=== PATIENT | female | born 1965 ===

== ENCOUNTER → 2021-04-14 12:47 | Outpatient (BNVA) | payer OTHER, SELFPAY | PROVIDERS: PCP Internal Medicine; Visit Provider Anesthesiology | DX: G89.4 Chronic pain syndrome (principal); I67.9 Cerebrovascular disease, unspecified; I69.30 Unspecified sequelae of cerebral infarction | CPT/HCPCS: 99202 ==

== ENCOUNTER 2021-09-11 10:43 | Outpatient (REF) | payer OTHER, SELFPAY ==
--- NOTE | ~2021-09-11 | XR_ITS ---
EXAMINATION: X-RAY LEFT HIP X-RAY SACROILIAC JOINTS CLINICAL INFORMATION: Sacroiliitis. COMPARISON: None TECHNIQUE: 1 view of the pelvis and 2 views of the left hip. 2 views of each sacroiliac joint. FINDINGS: No acute fractures or malalignment. Mild degenerative osteoarthritis of both hips with joint space narrowing, subcortical sclerosis and small marginal osteophytes. Fairly symmetric appearance of the sacroiliac joints with mild to moderate sclerosis and no evidence of joint widening. No definite erosions. XR/XR sacroiliac joint min 3V IMPRESSION: No acute fractures or malalignment. Mild degenerative osteoarthritis of the hips. Mild symmetric sclerosis of the sacroiliac joints with no joint widening.
--- NOTE | ~2021-09-11 | XR_ITS ---
EXAMINATION: X-RAY LEFT HIP X-RAY SACROILIAC JOINTS CLINICAL INFORMATION: Sacroiliitis. COMPARISON: None TECHNIQUE: 1 view of the pelvis and 2 views of the left hip. 2 views of each sacroiliac joint. FINDINGS: No acute fractures or malalignment. Mild degenerative osteoarthritis of both hips with joint space narrowing, subcortical sclerosis and small marginal osteophytes. Fairly symmetric appearance of the sacroiliac joints with mild to moderate sclerosis and no evidence of joint widening. No definite erosions. XR/XR hip LT w PEL1V IMPRESSION: No acute fractures or malalignment. Mild degenerative osteoarthritis of the hips. Mild symmetric sclerosis of the sacroiliac joints with no joint widening.
== END 2021-09-11 10:44 | disposition home or self-care (01) ==
LOC: HO.XRAY 10:43
PROVIDERS: PCP Internal Medicine; Visit Provider Nurse Practitioner Family
DX: M53.3 Sacrococcygeal disorders, not elsewhere classified (principal); M46.1 Sacroiliitis, not elsewhere classified; I69.30 Unspecified sequelae of cerebral infarction; M54.2 Cervicalgia; I69.398 Other sequelae of cerebral infarction; R25.2 Cramp and spasm; M47.812 Spondylosis without myelopathy or radiculopathy, cervical region; M51.36 Other intervertebral disc degeneration, lumbar region; G89.4 Chronic pain syndrome
CPT/HCPCS: 72202; 73502; 99212

== ENCOUNTER 2021-11-04 06:10 | Outpatient (REF) | payer OTHER, SELFPAY ==
--- NOTE | ~2021-11-04 | FL_ITS ---
EXAMINATION: XR FLUOROSCOPY WITH IMAGES CLINICAL INFORMATION: Sacrococcygeal disorders COMPARISON: None. TECHNIQUE: Fluoroscopy performed by Dr. Matty Herron. Fluoroscopy time: 0.0 minutes. Cumulative Dose: 0.957 mGy. DAP: 0.260 Gy-cm2. Images: 1. FINDINGS: There is a radiopaque needle projecting over the left sacroiliac joint with extension of contrast along the joint. FL/FL guidance in treatment room IMPRESSION: Fluoroscopic guidance for left sacroiliac joint intervention. Please refer to procedural report for further information.
== END 2021-11-04 06:11 | disposition home or self-care (01) ==
LOC: HO.RADIR 06:10
PROVIDERS: Visit Provider Anesthesiology
DX: M53.3 Sacrococcygeal disorders, not elsewhere classified (principal); M46.1 Sacroiliitis, not elsewhere classified; M54.2 Cervicalgia; M47.812 Spondylosis without myelopathy or radiculopathy, cervical region; R25.2 Cramp and spasm; I69.30 Unspecified sequelae of cerebral infarction; I69.398 Other sequelae of cerebral infarction
CPT/HCPCS: 27096; J2795

== ENCOUNTER → 2022-01-05 10:15 | Outpatient (BNVA) | payer MEDICARE, MEDICAID, SELFPAY | PROVIDERS: PCP Internal Medicine; Visit Provider Nurse Practitioner Family | DX: M51.36 Other intervertebral disc degeneration, lumbar region (principal); M47.812 Spondylosis without myelopathy or radiculopathy, cervical region; M53.3 Sacrococcygeal disorders, not elsewhere classified; M46.1 Sacroiliitis, not elsewhere classified; I69.398 Other sequelae of cerebral infarction; R25.2 Cramp and spasm; G89.4 Chronic pain syndrome; M54.16 Radiculopathy, lumbar region | CPT/HCPCS: 99212 ==

== ENCOUNTER 2022-01-13 06:05 | Outpatient (REF) | payer OTHER, SELFPAY | END 2022-01-13 06:06 | disposition home or self-care (01) | LOC: CF 06:05 | PROVIDERS: Visit Provider Anesthesiology | DX: Z13.89 Encounter for screening for other disorder (principal) | CPT/HCPCS: J3300 ==

== ENCOUNTER 2022-01-27 06:14 | Outpatient (REF) | payer MEDICARE, MEDICAID, SELFPAY ==
--- NOTE | ~2022-01-27 | FL_ITS ---
EXAMINATION: XR FLUOROSCOPY WITH IMAGES CLINICAL INFORMATION: M53.3 - Sacrococcygeal disorders, not elsewhere classified COMPARISON: Radiographs SI joint 09/11/2021 TECHNIQUE: Fluoroscopy performed by Dr. Matty Herron. Fluoroscopy time: 0.1 minutes. Cumulative Dose: 0.660 mGy. DAP: 2.42 Gy-cm2. Images: 4. FINDINGS: Spinal needle overlies mid to lower left SI joint. There is contrast in the periarticular soft tissues with probable early intra-articular contrast. No definite vasculature communication appreciated. FL/FL guidance in treatment room IMPRESSION: Fluoroscopy for pain management procedure.
== END 2022-01-27 06:15 | disposition home or self-care (01) ==
LOC: CF 06:14
PROVIDERS: Visit Provider Anesthesiology
DX: M53.3 Sacrococcygeal disorders, not elsewhere classified (principal); M51.36 Other intervertebral disc degeneration, lumbar region; M46.1 Sacroiliitis, not elsewhere classified; M54.16 Radiculopathy, lumbar region
CPT/HCPCS: 27096

== ENCOUNTER 2022-02-11 15:00 | Outpatient (RCR) | payer MEDICARE, MEDICAID, SELFPAY ==
--- NOTE | 2022-02-04 14:12 | MHC.PT.EP ---
[facility] [place] Office [place] Office [place] Office [address] Deborah Chacko [address] [phone] F: [phone] F: [phone] F: [phone] F: [phone] Physical Therapy Plan of Care Date of Evaluation: Date of Surgery: n/a Diagnosis: lumbar intervertebral disc degenerative Assessment: Patient is a 57 year old female presenting to PT with complaints of pain in her low back. 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 She presents today with impairments in pain, lumbar ROM, posture, core strength, hip strength. Pt's current occupation is none at this time since the stroke, with baseline physical activities including ADLs, bending, sitting, lifting. Pt expresses detention goal of reducing pain, and is motivated to work towards this in PT. Clinical presentation today is most consistent with signs and sx associated with low back pain and pt will benefit from skilled PT to address the following problems and impairments noted upon evaluation: pain, lumbar ROM, posture, core strength, hip strength. These problems limit the patient with the following functional activities: sitting, lifting. The prescribed treatment plan of care is medically necessary. Co-morbidities of post stroke, HTN were identified and taken into considerations of plan of care. Pt was educated on HEP, role of PT, prognosis, POC. Frequency and Duration: The patient will be seen 2 x week x 4 weeks Short Term Goals: Pt will demonstrate ability to perform PPT with good TA recruitment in 2 weeks. Pt will demonstrate improved hip MMT by 1/3 grade in 2 weeks for improved lumbopelvic stability. Pt will demonstrate improved postural awareness by sitting with biomechanically correct posture without cues throughout session to improve overall postural function in 2 weeks. Carpenter Helper Maintenance Goals: Pt will demonstrate improved Hallie score by 10% for improved functional mobility in 4 weeks. Pt will demonstrate ability to sit with min to no pain in 4 weeks for return to PLOF. Pt will demonstrate ability to lay flat with min to no pain in 4 weeks for improved tolerance to sleep. Treatment Plan: Modalities to reduce pain, spasms and effusion. Manual therapy to restore motion and function. Therapeutic exercise to improve strength and flexibility. Neuromuscular re-education for posture and balance. Therapeutic activities to return to functional activities of daily living. Electronically signed by: Nora Earl, PT, DPT, ATC Please sign and return to therapist. Thank you for your referral.
--- NOTE | 2022-03-03 13:57 | MHC.PT.DC ---
[facility] [place] Office [place] Office [place] Office [address] [phone] F: [phone] F: [phone] F: [phone] F: [phone] Physical Therapy Discharge Report Diagnosis: lumbar intervertebral disc degenerative Date of Surgery: n/a Date of Evaluation: 02/04/22 Date of Discharge: 03/03/22 Treatments to Date: 3 Cancellations to Date: 3 No Shows to Date: 2 Discharge Status: Visit Non-compliance Discharge Summary: Pt has failed to comply with [facility] attendance policy and no showed 2 appointments. Pt to be d/c at this time. Electronically signed by: Nora Earl PT, DPT, ATC Please sign and return to therapist. Thank you for your referral.
== END 2022-03-03 13:57 | disposition home or self-care (01) ==
LOC: HO.PTCHIC 15:00
PROVIDERS: Visit Provider Nurse Practitioner Family
DX: M51.36 Other intervertebral disc degeneration, lumbar region (principal); M47.812 Spondylosis without myelopathy or radiculopathy, cervical region; M53.3 Sacrococcygeal disorders, not elsewhere classified; M46.1 Sacroiliitis, not elsewhere classified
CPT/HCPCS: 97110; 97140; 97162

== ENCOUNTER → 2022-02-16 12:58 | Outpatient (BNVA) | payer MEDICARE, MEDICAID, SELFPAY | PROVIDERS: Visit Provider Anesthesiology | DX: M51.36 Other intervertebral disc degeneration, lumbar region (principal); I69.398 Other sequelae of cerebral infarction; R25.2 Cramp and spasm; M53.3 Sacrococcygeal disorders, not elsewhere classified; M46.1 Sacroiliitis, not elsewhere classified; M54.16 Radiculopathy, lumbar region; G89.4 Chronic pain syndrome | CPT/HCPCS: 99212 ==

== ENCOUNTER → 2022-09-14 14:12 | Outpatient (BNVA) | payer MEDICARE, MEDICAID, SELFPAY | PROVIDERS: PCP Internal Medicine; Visit Provider Anesthesiology | DX: M51.36 Other intervertebral disc degeneration, lumbar region (principal); M53.3 Sacrococcygeal disorders, not elsewhere classified; M46.1 Sacroiliitis, not elsewhere classified; M54.16 Radiculopathy, lumbar region; I69.398 Other sequelae of cerebral infarction; R25.2 Cramp and spasm; I67.9 Cerebrovascular disease, unspecified; G89.4 Chronic pain syndrome | CPT/HCPCS: 99212 ==

== ENCOUNTER 2022-10-06 07:10 | Outpatient (REF) | payer MEDICARE, MEDICAID, SELFPAY ==
--- NOTE | ~2022-10-06 | FL_ITS ---
EXAMINATION: XR FLUOROSCOPY WITH IMAGES CLINICAL INFORMATION: Sacroiliitis, not elsewhere classified. COMPARISON: None available. TECHNIQUE: Fluoroscopy Supervised By: Dr. Herron. Fluoroscopy Time: 0.2 minutes. Cumulative Dose: 4.81 mGy. DAP: 1.31 Gycm2. Images: 2. FINDINGS: Images demonstrate needle placement and contrast injection over the bilateral sacroiliac joints FL/FL guidance in treatment room IMPRESSION: Fluoroscopy guidance for sacroiliac joint injections
== END 2022-10-06 07:11 | disposition home or self-care (01) ==
LOC: CF 07:10
PROVIDERS: PCP Internal Medicine; Visit Provider Anesthesiology
DX: M46.1 Sacroiliitis, not elsewhere classified (principal); M51.36 Other intervertebral disc degeneration, lumbar region; M53.3 Sacrococcygeal disorders, not elsewhere classified; M54.16 Radiculopathy, lumbar region; I69.398 Other sequelae of cerebral infarction; R25.2 Cramp and spasm; G89.4 Chronic pain syndrome
CPT/HCPCS: 27096; J3301

== ENCOUNTER 2022-11-23 14:07 | Outpatient (AMB) | payer MEDICARE, MEDICAID, SELFPAY ==
[2022-11-23 14:47] VITALS: BP 110/60; PULSE 62; RESP 18; O2SAT 96; BMI 24.4
--- NOTE | 2022-11-23 14:47 | A.OFFVIS_ITS ---
Intake Vital Signs 11/23/22 14:47 Height 5 ft 6 in Weight 151 lb 3 oz BMI 24.4 BP 110/60 Blood Pressure Location Rt brachial Position Sitting Respiration 18 Pulse 62 Pulse Source Pulse Oximeter Pulse Oximetry (%) 96 Oxygen Delivery Method Room Air Intake Visit Reasons: BILAT THERAPEUTIC SIJ INJ 10/06/22 Allergies ciprofloxacin [From Cipro] Allergy (Verified 11/23/22 14:48) unknown shellfish derived Allergy (Verified 11/23/22 14:48) unknown HPI HPI Comments History of Present Illness Details Patient presents today for follow up regarding worsening of bilateral lower back pain related to bilateral sacroiliitis. In the past she received left sacroiliac joint injection with 100% pain relief from that area for 5 hours. That was diagnostic injection. After that she went for a bilateral t herapeutic sacroiliac joint injection she reports pain 0 of 10 today she reports excellent mobility minimal limitation of the physical activity related to the pain in the lower back improved social interaction. In the same time she started to complain on pain in the projection of the trochanter on the right. Since her injection was relatively recent I offered her to come here in 1 month and receive trigger point injection in projection of the right trochanter. I also explained to her that we can repeat steroid injections into sacroiliac joints once in 3 months, provided that sacroiliac joint pain will come back not earlier than that. If it will be back later than that strongly benefit to the patient. Is also complaining on spasticity and pain in the left upper extremity due to the stroke. She was under impression that some of our office staff me or any other practitioners are able to perform spasticity Botox injections. Unfortunately it was not so. I will refer her to Dr. Paulino to perform spasticity Botox injections. She also reports seeing her neurologist over a month ago for Botox injections for left upper extremity spasticity due to stroke 2 years ago and has been wo rking on her insurance for Botox approval. Patient reports gabapentin has been partially effective. Past Procedures: 11/04/21: Left Diagnostic SIJ injection-100% relief for 5 hours. PRIOR: Patient is a pleasant 56 years old female who presents for follow up for spasticity and pain in left upper and left lower extremity and left sided SIJ pain status post stroke 2 years ago. She was previously evaluated in this office by Dr. Herron as noted below with plan for ITDD pump trial with baclofen and morphine. Patient states after researching, reviewing informational brochure, and talking to her family, she decided not to go with ITDD trial. Therefore, she has not completed behavioral evaluation. Patient states she used to get botox injections through her centrifugal station operator Dr. Rosy MD who referred her here for botox injection for LUE spasticity back in April. Her last botox injection was on 02/26/21 with EMG guidance with which patient reports she regained a good degree of strength, movement in both of LUE and LLE. She also completed PT and OT with mild improvements in her symptoms and continues HEP at home. Patient reports LUE spasticity causes her significant neck pain and stiffness. Her recent cervical and lumbar spine MRI reports are noted below. Patient would like to proceed with botox injections. I will refer her to neurology Dr. Saba for continuation of botox injections with EMG guidance. Patient also reports left SIJ pain and has received left buttock injection in the past with good results. I will send medical records request to her previous centrifugal station operator and [facility] for records and procedures review. She would like to undergo left diagnostic SIJ injection with local and fluoroscopy. She denies any fever, chills, abdominal or groin pain, weight changes, numbness, bladder/bowel dysfunction or saddle anesthesia. Patient reports left sided weakness due to history of stroke. She ambulates with spastic hemiparesis and scissors gait with the use of cane. PRIOR 04/14/21 Dr. Herron: Jesi is very pleasant 56 years old female who is in my office with complaining on pain in spasticity in the left upper extremity and left lower extremity. Apparently she suffered from this stroke 2 years ago. She developed spasticity and pain in left upper and left lower extremity. She reports her pain is 8 out of 10 to 4/10 she reports that she cannot take care of herself and she cannot function normally she is on permanent disability. She was working last time 2 and half years ago. She reports hot water alleviates her pain and topical medications help. She also received buttocks injection by her neurology provider. She reports that the pain is worse sitting. She reports her pain in terms of tissue damage is tugging, pulling, ranging, tingling, stinging, hurting, aching, heavy, tight, squeezing, tearing. She received physical therapy with [facility] and she denies any pain from physical therapy. She reports Botox injections help her pain however temporarily. She is suffering from hypertension. She has history of stroke. She was smoking 2-3 cigarettes a day. She is drinking alcohol socially. She consumes 2 and half cups of coffee in the morning. She is suffering from arthritis. She is taking aspirin a and Plavix as well as baclofen carvedilol and atorvastatin. She denies any surgical history. She reports Tylenol extra-strength give her good pain relief. Her main problem is spasticity. [facility] Medical History Cerebrovascular disease Chronic pain syndrome Sequela, post-stroke Review of Systems Const All systems reviewed & are unremarkable except as noted in HPI and below ENT Reports Normal hearing present Neuro Reports Normal hearing present, Denies confusion and Reports Sensory deficit (Neuro) Psych Denies confusion Physical Exam Vital Signs: Last Vital Signs Pulse 62 11/23/22 14:47 Resp 18 11/23/22 14:47 BP 110/60 11/23/22 14:47 Pulse Ox 96 11/23/22 14:47 Oxygen Delivery Method Room Air 11/23/22 14:47 BMI result Body Mass Index 24.4 Const General: No confusion Nutritional Appearance: average body habitus Orientation/consciousness: No confusion Limitations: ambulation with cane and other limitations (left sided weakness r/t CVA) HEENT Head: Yes normal to inspection, Yes normocephalic and Yes atraumatic Ears: hearing grossly normal bilaterally Face and sinus: Yes normal facial exam and Yes sinuses nontender Mouth: moist mucous membranes Eyes General: appearance normal, both eyes and all related structures Visual Osuna: normal visual osuna by confrontation Pupils: Equal, round and reactive pupils present EOM: EOMs intact bilaterally Neck Neck: Yes normal visual inspection, Yes full ROM and Yes no lymphadenopathy Chest Chest palpation & inspection: normal inspection of the chest Resp Effort & Inspection: normal respiratory effort, able to speak in complete sentences, no audible wheezes, no cough, respiratory effort not decreased, no r espiratory distress and symmetric chest movement Cardio Jugular venous distension: no JVD Bruits: no carotid bruits Peripheral pulses: radial pulses present, posterior tibial pulses present and dorsalis pedis present GI Inspection: Yes normal to inspection and No distended Palpation (GI): Soft to palpation and nontender Back/Spine/Pelvis Cervical Spine: cervical muscular tenderness, pain with cervical ROM and No Cervical spine tenderness Thoracic/Lumbar Spine: thoracic and lumbar spine normal to inspection, Lasegue's sign negative, pain with thoraco-lumbar ROM, paraspinal muscle tenderness, thoraco-lumbar ROM limited, thoraco-lumbar spasm, No thoracic spinal tenderness, No lumbar spinal tenderness and straight leg raise positive Pelvis: no buttock ecchymosis and buttock tenderness on the left Sacroiliac joints: on the right nontender and on the left (+Halle, +Carlos's +Stinchfield's tests ) tender to palpation Skin General skin exam: no rashes or lesions noted Neuro General: No confusion Cranial nerves: Yes Equal, round and reactive pupils present and Yes Normal hearing present Cognition (Neuro): normal cognition Gait exam (Neuro): gait abnormal, Spastic hemiparesis gait present, Scissors gait present and Assistive device used Motor exam (neuro): Abnormal muscle tone present Sensory Exam: Sensory deficit (Neuro) Extrem General: Yes capillary refill normal, Yes no calf tenderness and Yes edema (left ankle and pedal non pitting edema) Psych Appearance: grossly normal Mental Status: mental status grossly normal Speech and movement: Normal speech and movement present Affect: normal affect Attitude: cooperative Thought process: Normal thought process present Thought content: Normal thought content present Insight: Good insight present (Psych) Judgement: Good judgement present (Psych) Assessment & Plan Assessment & Plan (1) Lumbar degenerative disc disease: Code(s): M51.36 - Other intervertebral disc degeneration, lumbar region (2) Spasticity due to old stroke: Code(s): I69.398 - Other sequelae of cerebral infarction; R25.2 - Cramp and spasm (3) Sacroiliac joint dysfunction of left side: Code(s): M53.3 - Sacrococcygeal disorders, not elsewhere classified (4) Sacroiliitis: Code(s): M46.1 - Sacroiliitis, not elsewhere classified (5) Chronic pain syndrome: Code(s): G89.4 - Chronic pain syndrome (6) Lumbar radiculopathy: Code(s): M54.16 - Radiculopathy, lumbar region (7) Cerebrovascular disease: Code(s): I67.9 - Cerebrovascular disease, unspecified (8) Sequela, post-stroke: Code(s): I69.30 - Unspecified sequelae of cerebral infarction Plan Bilateral therapeutic SI joint injection resulted in excellent pain relief lasting for 1 month. Complains on pain in the projection of the right trochanteric bursa. Trigger point injection offered to the patient in 1 month. She will come in 1 month and will perform trigger point injection into her trochanter area. As of repeat of the sacroiliac joint injection will perform it is needed in the future when patient's pain will come back but not more often than once in 3 months. 2. She reports spasticity in her left upper extremity severe enough to warrant Botox injections. I will refer her to Dr. Paulino is office to perform this procedures. It looks like that her insurance company now may approve those injections. Coding Level of Care Code Est Pt Level 4 (95652) Diagnoses Lumbar degenerative disc disease M51.36 Spasticity due to old stroke I69.398; R25.2 Sacroiliac joint dysfunction of left side M53.3 Sacroiliitis M46.1 Chronic pain syndrome G89.4 Lumbar radiculopathy M54.16 Cerebrovascular disease I67.9 Sequela, post-stroke I69.30
== END 2022-11-23 14:55 | disposition home or self-care (01) ==
PROVIDERS: PCP Internal Medicine; Visit Provider Anesthesiology
DX: M51.36 Other intervertebral disc degeneration, lumbar region (principal); I69.398 Other sequelae of cerebral infarction; R25.2 Cramp and spasm; M53.3 Sacrococcygeal disorders, not elsewhere classified; M46.1 Sacroiliitis, not elsewhere classified; G89.4 Chronic pain syndrome; M54.16 Radiculopathy, lumbar region; I67.9 Cerebrovascular disease, unspecified; I69.30 Unspecified sequelae of cerebral infarction
CPT/HCPCS: 99214

== ENCOUNTER → 2022-11-23 14:07 | Outpatient (BNVA) | payer MEDICARE, MEDICAID, SELFPAY | PROVIDERS: PCP Internal Medicine; Visit Provider Anesthesiology | DX: M46.1 Sacroiliitis, not elsewhere classified (principal); M54.16 Radiculopathy, lumbar region; M51.36 Other intervertebral disc degeneration, lumbar region; M53.3 Sacrococcygeal disorders, not elsewhere classified; I10 Essential (primary) hypertension; I69.30 Unspecified sequelae of cerebral infarction; R25.2 Cramp and spasm; G89.4 Chronic pain syndrome | CPT/HCPCS: 99212 ==

== ENCOUNTER 2022-12-21 13:56 | Outpatient (AMB) | payer MEDICARE, MEDICAID, SELFPAY ==
--- NOTE | 2022-12-21 14:12 | MHC.OFFVIS ---
Intake Vital Signs 12/21/22 14:31 Height 5 ft 6 in Weight 157 lb 6 oz BMI 25.4 BP 132/67 Blood Pressure Location Lt brachial Position Sitting Pulse 74 Pulse Source Pulse Oximeter Pulse Oximetry (%) 96 Oxygen Delivery Method Room Air Intake Visit Reasons: TPI Right Hip Intake Note: Pt looking forward to injection today-stating she is having increased pain in her R hip Allergies ciprofloxacin [From Cipro] Allergy (Verified 12/21/22 14:32) unknown shellfish derived Allergy (Verified 12/21/22 14:32) unknown Medication List - Last Reconciled 12/21/22 by Brooke Gaines RN amlodipine 2.5 mg PO DAILY aspirin 81 mg PO DAILY atorvastatin 80 mg PO DAILY baclofen 15 mg PO TID carvedilol 12.5 mg PO BID hydroxyzine HCl 10 mg PO BEDTIME hydroxyzine HCl 50 mg PO BEDTIME lorazepam mg PO losartan 50 mg PO DAILY omeprazole 20 mg PO DAILY paroxetine HCl 60 mg PO DAILY pregabalin (Lyrica) 25 mg PO BID 30 days HPI HPI Comments History of Present Illness Details Patient presents today for follow up regarding worsening of bilateral lower back pain related to bilateral sacroiliitis. She also complains on pain in trochanteric bursa on the right, we decided to perform today right trochanteric bursa injection non image guided. The description of the procedure see as below. Last time she was given brochure about PNS curoniox to treat her sacroiliac joint pain. The patient is interested in the procedure. I will schedule her for psychological evaluation and after that we will proceed for the trial. In the past she received left sacroiliac joint injection with 100% pain relief from that area for 5 hours. That was diagnostic injection. After that she went for a bilateral therapeutic sacroiliac joint injection she reports pain 0 of 10 today she reports excellent mobility minimal limitation of the physical activity related to the pain in the lower back improved social interaction. In the same time she started to complain on pain in the projection of the trochanter on the right. Since her injection was relatively recent I offered her to come here in 1 month and receive trigger point injection in projection of the right trochanter. I also explained to her that we can repeat steroid injections into sacroiliac joints once in 3 months, provided that sacroiliac joint pain will come back not earlier than that. If it will be back later than that strongly benefit to the patient. Is also complaining on spasticity and pain in the left upper extremity due to the stroke. She was under impression that some of our office staff me or any other practitioners are able to perform spasticity Botox injections. Unfortunately it was not so. I will refer her to Dr. Paulino to perform spasticity Botox injections. She also reports seeing her neurologist over a month ago for Botox injections for left upper extremity spasticity due to stroke 2 years ago and has been working on her insurance for Botox approval. Patient reports gabapentin has been partially effective. Past Procedures: 11/04/21: Left Diagnostic SIJ injection-100% relief for 5 hours. PRIOR: Patient is a pleasant 56 years old female who presents for follow up for spasticity and pain in left upper and left lower extremity and left sided SIJ pain status post stroke 2 years ago. She was previously evaluated in this office by Dr. Herron as noted below with plan for ITDD pump trial with baclofen and morphine. Patient states after researching, reviewing informational brochure, and talking to her family, she decided not to go with ITDD trial. Therefore, she has not completed behavioral evaluation. Patient states she used to get botox injections through her registry np Dr. Rosy MD who referred her here for botox injection for LUE spasticity back in April. Her last botox injection was on 02/26/21 with EMG guidance with which patient reports she regained a good degree of strength, movement in both of LUE and LLE. She also completed PT and OT with mild improvements in her symptoms and continues HEP at home. Patient reports LUE spasticity causes her significant neck pain and stiffness. Her recent cervical and lumbar spine MRI reports are noted below. Patient would like to proceed with botox injections. I will refer her to neurology Dr. Saba for continuation of botox injections with EMG guidance. Patient also reports left SIJ pain and has received left buttock injection in the past with good results. I will send medical records request to her previous registry np and [facility] PT/OT for records and procedures review. She would like to undergo left diagnostic SIJ injection with local and fluoroscopy. She denies any fever, chills, abdominal or groin pain, weight changes, numbness, bladder/bowel dysfunction or saddle anesthesia. Patient reports left sided weakness due to history of stroke. She ambulates with spastic hemiparesis and scissors gait with the use of cane. PRIOR 04/14/21 Jesi is very pleasant 56 years old female who is in my office with complaining on pain in spasticity in the left upper extremity and left lower extremity. she suffered from this stroke 2 years ago. She developed spasticity and pain in left upper and left lower extremity. She reports her pain is 8 out of 10 to 4/10 she reports that she cannot take care of herself and she cannot function normally she is on permanent disability. She was working last time 2 and half years ago. She reports hot water alleviates her pain and topical medications help. She also received buttocks injection by her neurology provider. She reports that the pain is worse sitting. She reports her pain in terms of tissue damage is tugging, pulling, ranging, tingling, stinging, hurting, aching, heavy, tight, squeezing, tearing. She received physical therapy with [facility] and PT and she denies any pain from physical therapy. She reports Botox injections help her pain however temporarily. She is suffering from hypertension. She has history of stroke. She was smoking 2-3 cigarettes a day. She is drinking alcohol socially. She consumes 2 and half cups of coffee in the morning. She is suffering from arthritis. She is taking aspirin a and Plavix as well as baclofen carvedilol and atorvastatin. She denies any surgical history. She reports Tylenol extra-strength give her good pain relief. Her main problem is spasticity. [facility] Medical History Cerebrovascular disease Chronic pain syndrome Sequela, post-stroke Review of Systems Const All systems reviewed & are unremarkable except as noted in HPI and below ENT Reports Normal hearing present Neuro Reports Normal hearing present, Denies confusion and Reports Sensory deficit (Neuro) Psych Denies confusion Physical Exam Vital Signs: Last Vital Signs Pulse 74 12/21/22 14:31 BP 132/67 12/21/22 14:31 Pulse Ox 96 12/21/22 14:31 Oxygen Delivery Method Room Air 12/21/22 14:31 BMI result Body Mass Index 25.4 Const General: No confusion Nutritional Appearance: average body habitus Orientation/consciousness: No confusion Limitations: ambulation with cane and other limitations (left sided weakness r/t CVA) HEENT Head: Yes normal to inspection, Yes normocephalic and Yes atraumatic Ears: hearing grossly normal bilaterally Face and sinus: Yes normal facial exam and Yes sinuses nontender Mouth: moist mucous membranes Eyes General: appearance normal, both eyes and all related structures Visual Osuna: normal visual osuna by confrontation Pupils: Equal, round and reactive pupils present EOM: EOMs intact bilaterally Neck Neck: Yes normal visual inspection, Yes full ROM and Yes no lymphadenopathy Chest Chest palpation & inspection: normal inspection of the chest Resp Effort & Inspection: normal respiratory effort, able to speak in complete sentences, no audible wheezes, no cough, respiratory effort not decreased, no respiratory distress and symmetric chest movement Cardio Jugular venous distension: no JVD Bruits: no carotid bruits Peripheral pulses: radial pulses present, posterior tibial pulses present and dorsalis pedis present GI Inspection: Yes normal to inspection and No distended Palpation (GI): Soft to palpation and nontender Back/Spine/Pelvis Cervical Spine: cervical muscular tenderness, pain with cervical ROM and No Cervical spine tenderness Thoracic/Lumbar Spine: thoracic and lumbar spine normal to inspection, Lasegue's sign negative, pain with thoraco-lumbar ROM, paraspinal muscle tenderness, thoraco-lumbar ROM limited, thoraco-lumbar spasm, No thoracic spinal tenderness, No lumbar spinal tenderness and straight leg raise positive Pelvis: no buttock ecchymosis and buttock tenderness on the left Sacroiliac joints: on the right nontender and on the left (+Halle, +Carlos's +Stinchfield's tests ) tender to palpation Skin General skin exam: no rashes or lesions noted Neuro General: No confusion Cranial nerves: Yes Equal, round and reactive pupils present and Yes Normal hearing present Cognition (Neuro): normal cognition Gait exam (Neuro): gait abnormal, Spastic hemiparesis gait present, Scissors gait present and Assistive device used Motor exam (neuro): Abnormal muscle tone present Sensory Exam: Sensory deficit (Neuro) Extrem General: Yes capillary refill normal, Yes no calf tenderness and Yes edema (left ankle and pedal non pitting edema) Psych Appearance: grossly normal Mental Status: mental status grossly normal Speech and movement: Normal speech and movement present Affect: normal affect Attitude: cooperative Thought process: Normal thought process present Thought content: Normal thought content present Insight: Good insight present (Psych) Judgement: Good judgement present (Psych) Assessment & Plan Assessment & Plan (1) Lumbar degenerative disc disease: Code(s): M51.36 - Other intervertebral disc degeneration, lumbar region (2) Spasticity due to old stroke: Code(s): I69.398 - Other sequelae of cerebral infarction; R25.2 - Cramp and spasm (3) Sacroiliac joint dysfunction of left side: Code(s): M53.3 - Sacrococcygeal disorders, not elsewhere classified (4) Sacroiliitis: Code(s): M46.1 - Sacroiliitis, not elsewhere classified (5) Chronic pain syndrome: Code(s): G89.4 - Chronic pain syndrome (6) Lumbar radiculopathy: Code(s): M54.16 - Radiculopathy, lumbar region (7) Cerebrovascular disease: Code(s): I67.9 - Cerebrovascular disease, unspecified (8) Sequela, post-stroke: Code(s): I69.30 - Unspecified sequelae of cerebral infarction (9) Trochanteric bursitis, right hip: Code(s): M70.61 - Trochanteric bursitis, right hip Plan: Non image guided right trochanteric bursa injection. Informed consent was obtained risk and benefits delineated to the patient. The patient was position on left lateral decubitus position and the non dependent right trochanter area was prepped with ChloraPrep. Sterilely obtained mixture of bupivacaine 0.5% and Kenalog 40 mg was injected in the area of the trochanteric bursa and medication was spread in fan-like fashion. Patient tolerated procedure well. He reported immediate pain relief. She went home without immediate complications. Plan Bilateral therapeutic SI joint injection resulted in excellent pain relief lasting for 1 month. However pain is back now and she is interested in sacroiliac joint stimulation innervation. She would need to go to psychological evaluation For the pain in the right trochanteric bursa she received today non image guided trochanteric bursa injection as above. 2. She reports spasticity in her left upper extremity severe enough to warrant Botox injections. I will refer her to Dr. Paulino is office to perform this procedures. It looks like that her insurance company now may approve those injections. Coding Level of Care Code Est Pt Level 3 (47081) Procedure Only Diagnoses Lumbar degenerative disc disease M51.36 Spasticity due to old stroke I69.398; R25.2 Sacroiliac joint dysfunction of left side M53.3 Sacroiliitis M46.1 Chronic pain syndrome G89.4 Lumbar radiculopathy M54.16 Cerebrovascular disease I67.9 Sequela, post-stroke I69.30 Trochanteric bursitis, right hip M70.61
[2022-12-21 14:31] VITALS: BP 132/67; PULSE 74; O2SAT 96; BMI 25.4
== END 2022-12-21 15:10 | disposition home or self-care (01) ==
PROVIDERS: PCP Internal Medicine; Visit Provider Anesthesiology
DX: M70.61 Trochanteric bursitis, right hip (principal); M51.36 Other intervertebral disc degeneration, lumbar region; I69.398 Other sequelae of cerebral infarction; R25.2 Cramp and spasm; M53.3 Sacrococcygeal disorders, not elsewhere classified; M46.1 Sacroiliitis, not elsewhere classified; G89.4 Chronic pain syndrome; M54.16 Radiculopathy, lumbar region; I67.9 Cerebrovascular disease, unspecified; I69.30 Unspecified sequelae of cerebral infarction
CPT/HCPCS: 20610; 99213

== ENCOUNTER → 2022-12-21 13:56 | Outpatient (BNVA) | payer MEDICARE, MEDICAID, SELFPAY | PROVIDERS: PCP Internal Medicine; Visit Provider Anesthesiology | DX: M70.61 Trochanteric bursitis, right hip (principal); M51.36 Other intervertebral disc degeneration, lumbar region; M53.3 Sacrococcygeal disorders, not elsewhere classified; M46.1 Sacroiliitis, not elsewhere classified; G89.4 Chronic pain syndrome; M54.16 Radiculopathy, lumbar region; I69.30 Unspecified sequelae of cerebral infarction; I67.9 Cerebrovascular disease, unspecified; I69.398 Other sequelae of cerebral infarction; R25.2 Cramp and spasm | CPT/HCPCS: 20610; 99212; J3301 ==

== ENCOUNTER 2022-12-28 07:55 | Outpatient (AMB) | payer MEDICARE, MEDICAID, SELFPAY ==
--- NOTE | 2022-12-28 07:58 | MHC.OFFVIS ---
Intake Vital Signs 12/28/22 08:07 Height 5 ft 6 in Weight 156 lb 6 oz BMI 25.2 BP 148/68 H Blood Pressure Location Rt brachial Position Sitting Pulse 63 Pulse Source Pulse Oximeter Pulse Oximetry (%) 98 Oxygen Delivery Method Room Air Intake Visit Reasons: [employer] INST[employer]ER:Cerebrovascular disease-confirmed Intake Note: NPV Cerebrovascular disease [employer] Department Supervisor Required: No Allergies ciprofloxacin [From Cipro] Allergy (Verified 12/28/22 07:59) unknown shellfish derived Allergy (Verified 12/28/22 07:59) unknown Medication List - Last Reconciled 12/28/22 by Carolyn Tate MD acetaminophen ER 650 mg PO Q8H PRN amlodipine 5 mg PO DAILY aspirin 81 mg PO DAILY atorvastatin 80 mg PO DAILY baclofen 10 mg PO TID carvedilol 12.5 mg PO BID cholecalciferol (vitamin D3) 25 mcg PO DAILY gabapentin 600 mg PO BID hydroxyzine HCl 10 mg PO BEDTIME hydroxyzine HCl 50 mg PO BEDTIME lorazepam mg PO losartan 50 mg PO DAILY omeprazole 40 mg PO DAILY paroxetine HCl 60 mg PO DAILY HPI HPI Comments History of Present Illness Details 57y/o right handed female with h/o CVA 3 years ago with residual left sided weakness and spasticity. she also has chronic low back pain and sees pain management. She reports severe tightness, discomfort in her left UE . she has on and off neck pain but no radicular pain, no sensory symptoms. 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 HTN (hypertension) Cerebrovascular disease Chronic pain syndrome Sequela, post-stroke Surgical History (Updated 12/28/22 @ 08:05 by Angela Alves CMA) Stented coronary artery Family History (Updated 12/28/22 @ 08:06 by Angela Alves CMA) Mother Diabetes HTN (hypertension) Heart disease Social History (Updated 12/28/22 @ 08:07 by Angela Alves CMA) Alcohol intake: never Patient Tobacco Use Status: Never used Tobacco Encourage to stop smoking at least 8hrs prior to surgery: Yes Use of substances other than those prescribed or required for medical reasons: Yes Substance Use Type: Marijuana Review of Systems Const All systems reviewed & are unremarkable except as noted in HPI and below ENT Reports Normal hearing present Neuro Reports Normal hearing present, Denies confusion and Reports Sensory deficit (Neuro) Psych Denies confusion Physical Exam Vital Signs: Last Vital Signs Pulse 63 12/28/22 08:07 BP 148/68 H 12/28/22 08:07 Pulse Ox 98 12/28/22 08:07 Oxygen Delivery Method Room Air 12/28/22 08:07 BMI result Body Mass Index 25.2 Const General: No confusion Orientation/consciousness: patient oriented x3 and No confusion Eyes Pupils: Equal, round and reactive pupils present Neuro Other: spasmodic torticollis , tightness in the trapezius Left UE severe spasticty Left LE - mild spasticity Power 4/5 in left UE LE Fn normal on right Mild left facial paresis General: patient oriented x3, moves all extremities and No confusion Cranial nerves: Yes Equal, round and reactive pupils present, Yes Bilaterally intact EOM present, Yes Nystagmus not present, Yes Midline tongue present and Yes Normal hearing present Cognition (Neuro): normal cognition Gait exam (Neuro): Spastic hemiparesis gait present Sensory Exam: Sensory deficit (Neuro) Deep tendon reflexes (DTR's): Right triceps reflex intensity grade: 3+, Left triceps reflex intensity grade: 3+, Rt Biceps (C5, C6): 3+, Left biceps reflex intensity grade: 3+, Right brachioradialis reflex intensity grade: 3+, Left brachioradialis reflex intensity grade: 3+, Right patellar reflex intensity grade: 3+ and Left patellar reflex intensity grade: 3+ Coordination: [id number] test normal Assessment & Plan Assessment & Plan (1) Spasticity due to old stroke: Code(s): I69.398 - Other sequelae of cerebral infarction; R25.2 - Cramp and spasm (2) Spasmodic torticollis: Code(s): G24.3 - Spasmodic torticollis Plan SHe will benefit form treatment with Botulinum toxin injection for her left UE spasticty and spasmodic torticollis I will get a prior approval form insurance and schedule her for an appointment. Continue baclofen 10mg ti d OT for ue and PT for neck Orders: Orders OT Evaluation and Treatment Today I69.398 - Other sequelae of cerebral infarction, R25.2 - Cramp and spasm PT Evaluation and Treatment Today G24.3 - Spasmodic torticollis Coding Level of Care Code New Pt Level 4 (78219) Diagnoses Spasticity due to old stroke I69.398; R25.2 Spasmodic torticollis G24.3
[2022-12-28 08:07] VITALS: BP 148/68; PULSE 63; O2SAT 98; BMI 25.2
== END 2022-12-28 08:44 | disposition home or self-care (01) ==
PROVIDERS: PCP Internal Medicine; Visit Provider Psychiatry & Neurology Neurology
DX: I69.398 Other sequelae of cerebral infarction (principal); R25.2 Cramp and spasm
CPT/HCPCS: 99204

== ENCOUNTER → 2022-12-28 07:55 | Outpatient (BNVA) | payer MEDICARE, MEDICAID, SELFPAY | PROVIDERS: PCP Internal Medicine; Visit Provider Psychiatry & Neurology Neurology ==

== ENCOUNTER → 2023-01-07 13:53 | Outpatient (BNVA) | payer MEDICARE, MEDICAID, SELFPAY | PROVIDERS: PCP Internal Medicine; Visit Provider Anesthesiology ==

== ENCOUNTER 2023-02-11 09:10 | Outpatient (AMB) | payer MEDICARE, MEDICAID, SELFPAY ==
--- NOTE | 2023-02-11 09:12 | A.OFFVIS_ITS ---
Intake Vital Signs 02/11/23 09:16 Height 5 ft 6 in Weight 161 lb 2 oz BMI 26.0 BP 138/78 Blood Pressure Location Rt brachial Position Left Lateral Respiration 17 Pulse 75 Pulse Source Pulse Oximeter Pulse Oximetry (%) 98 Oxygen Delivery Method Room Air Intake Visit Reasons: botox-confirmed Intake Note: Pt presents t the office for Botox injections. 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 Allergies ciprofloxacin [From Cipro] Allergy (Verified 02/11/23 09:12) unknown shellfish derived Allergy (Verified 02/11/23 09:12) unknown Medication List - Last Reconciled 02/11/23 by Carolyn Tate MD acetaminophen ER 650 mg PO Q8H PRN amlodipine 5 mg PO DAILY aspirin 81 mg PO DAILY atorvastatin 80 mg PO DAILY baclofen 10 mg PO TID carvedilol 12.5 mg PO BID cholecalciferol (vitamin D3) 25 mcg PO DAILY gabapentin 600 mg PO BID hydroxyzine HCl 10 mg PO BEDTIME hydroxyzine HCl 50 mg PO BEDTIME lorazepam mg PO losartan 50 mg PO DAILY losartan 50 mg PO DAILY omeprazole 40 mg PO DAILY paroxetine HCl 60 mg PO DAILY HPI HPI Comments History of Present Illness Details 58 y/o female comes for treatment of her cervical dystonia and left UE spasticity ? Side effects including spread of toxin effect, dysphagia, breathing difficulties , bronchitis etc was discussed in detail and the patient agreed to the procedure.An informed consent was obtained ??? Botulinum toxin type A 100units X 2 -was diluted with 2 cc of normal saline at a concentration of 25 units in 0.5cc saline. Lot number [id number] expiration 05/2025 ??? Muscles injected ??? left Splenius - 25 units each ??? left levator 25 units each ??? left Trapezius 50 units each Left biceps 50 units Left Flexor Carpii radialis 25 units Left flexor carpii ulnaris 25 units ??? 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 HTN (hypertension) Cerebrovascular disease Chronic pain syndrome Sequela, post-stroke Surgical History Stented coronary artery Family History Mother Diabetes HTN (hypertension) Heart disease Social History Alcohol intake: never Patient Tobacco Use Status: Never used Tobacco Substance Use Type: Marijuana Review of Systems ENT Reports Normal hearing present Neuro Reports Normal hearing present and Reports Sensory deficit (Neuro) Physical Exam Vital Signs: Last Vital Signs Pulse 75 02/11/23 09:16 Resp 17 02/11/23 09:16 BP 138/78 02/11/23 09:16 Pulse Ox 98 02/11/23 09:16 Oxygen Delivery Method Room Air 02/11/23 09:16 BMI result Body Mass Index 26.0 Const General: cooperative and healthy appearing Orientation/consciousness: patient oriented x3 Eyes Pupils: Equal, round and reactive pupils present Neuro Other: spasmodic torticollis , tightness in the trapezius Left UE severe spasticty Left LE - mild spasticity Power 4/5 in left UE LE Fn normal on right Mild left facial paresis General: patient oriented x3 and moves all extremities Cranial nerves: Yes Equal, round and reactive pupils present, Yes Bilaterally intact EOM present, Yes Nystagmus not present, Yes Midline tongue present and Yes Normal hearing present Cognition (Neuro): normal cognition Gait exam (Neuro): Spastic hemiparesis gait present Sensory Exam: Sensory deficit (Neuro) Office Procedures Botulinum toxin Injection 39705 - Dystonia 77392 - Extr 1-4 Procedure code (CPT) selection complete Office Meds onabotulinumtoxinA 100 unit solution for injection Performing Provider: Carolyn Tate MD Performing Location: [facility] Administered by: Carolyn Tate MD on 02/11/23 09:51 Dose Route Admin Location Dispensed Lot Number Expiration Date [facility] 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 200 unit IM 200 units [id number] 06/10/25 3198-8342-20 [employer] Comments: see HPI Assessment & Plan Assessment & Plan (1) Spasticity due to old stroke: Code(s): I69.398 - Other sequelae of cerebral infarction; R25.2 - Cramp and spasm (2) Spasmodic torticollis: Code(s): G24.3 - Spasmodic torticollis Plan she tolerated the procedure well she will call with any side effects Continue baclofen 10mg ti d OT for ue and PT for neck Orders: Orders AMB Botulinum toxin Injection Today G24.3 - Spasmodic torticollis, I69.398 - Other sequelae of cerebral infarction, R25.2 - Cramp and spasm Coding Level of Care Code Est Pt Level 1 (22218) Diagnoses Spasticity due to old stroke I69.398; R25.2 Spasmodic torticollis G24.3 CPT Codes Botox Injection - Botox 4: 06730 - Dystonia ([id number]) Botox Injection - Botox 5: 42703 - Extr 1-4 ([id number])
[2023-02-11 09:16] VITALS: BP 138/78; PULSE 75; RESP 17; O2SAT 98; BMI 26.0
== END 2023-02-11 09:41 | disposition home or self-care (01) ==
PROVIDERS: PCP Internal Medicine; Visit Provider Psychiatry & Neurology Neurology
DX: G24.3 Spasmodic torticollis (principal); G81.14 Spastic hemiplegia affecting left nondominant side; I69.398 Other sequelae of cerebral infarction
CPT/HCPCS: 64616; 64642

== ENCOUNTER → 2023-02-11 09:10 | Outpatient (BNVA) | payer MEDICARE, MEDICAID, SELFPAY | PROVIDERS: PCP Internal Medicine; Visit Provider Psychiatry & Neurology Neurology | DX: I69.398 Other sequelae of cerebral infarction (principal); R25.2 Cramp and spasm; G24.3 Spasmodic torticollis | CPT/HCPCS: 64616; 64642; 99211; J0585 ==

== ENCOUNTER 2023-03-31 14:55 | Outpatient (AMB) | payer MEDICARE, MEDICAID, SELFPAY ==
--- NOTE | 2023-03-31 15:13 | A.OFFVIS_ITS ---
Intake Vital Signs 03/31/23 16:08 Height 5 ft 6 in Weight 156 lb 6 oz BMI 25.2 BP 138/90 H Blood Pressure Location Lt brachial Position Sitting Respiration 16 Pulse 78 Pulse Source Pulse Oximeter Pulse Oximetry (%) 97 Oxygen Delivery Method Room Air Intake Visit Reasons: procedure discussion Allergies ciprofloxacin [From Cipro] Allergy (Verified 03/31/23 16:09) unknown shellfish derived Allergy (Verified 03/31/23 16:09) unknown HPI HPI Comments History of Present Illness Details Jesi is today in the office to request a discussion about procedures to help her pain. In the past she received diagnostic sacroiliac joint injection with good results. It was left SI joint injection. She received after that therapeutic sacroiliac joint injection and actually gave her good results as well. She wished to continue with curonix PNS of her sacroiliac joints, she got registered with [facility] however she never side for actual assessment. So she needs to go for actual assessment and then we will schedule her for trial for the procedure. In the past she received left sacroiliac joint injection with 100% pain relief from that area for 5 hours. That was diagnostic injection. After that she went for a bilateral therapeutic sacroiliac joint injection she reports pain 0 of 10 today she reports excellent mobility minimal limitation of the physical activity related to the pain in the lower back improved social interaction. In the same time she started to complain on pain in the projection of the trochanter on the right. Since her injection was relatively recent I offered her to come here in 1 month and receive trigger point injection in projection of the right trochanter. I also explained to her that we can repeat steroid injections into sacroiliac joints once in 3 months, provided that sacroiliac joint pain will come back not earlier than that. If it will be back later than that strongly benefit to the patient. Is also complaining on spasticity and pain in the left upper extremity due to the stroke. She was under impression that some of our office staff me or any other practitioners are able to perform spasticity Botox injections. Unfortunately it was not so. I will refer her to Dr. Paulino to perform spasticity Botox injections. She also reports seeing her neurologist over a month ago for Botox injections for left upper extremity spasticity due to stroke 2 years ago and has been working on her insurance for Botox approval. Patient reports gabapentin has been partially effective. Past Procedures: 11/04/21: Left Diagnostic SIJ injection- 100% relief for 5 hours. PRIOR: Patient is a pleasant 56 years old female who presents for follow up for spasticity and pain in left upper and left lower extremity and left sided SIJ pain status post stroke 2 years ago. She was previously evaluated in this office by Dr. Herron as noted below with plan for ITDD pump trial with baclofen and morphine. Patient states after researching, reviewing informational brochure, and talking to her family, she decided not to go with ITDD trial. Therefore, she has not completed behavioral evaluation. Patient states she used to get botox injections through her development disability specialist Dr. Rosy MD who referred her here for botox injection for LUE spasticity back in April. Her last botox injection was on 02/26/21 with EMG guidance with which patient reports she regained a good degree of strength, movement in both of LUE and LLE. She also completed PT and OT with mild improvements in her symptoms and continues HEP at home. Patient reports LUE spasticity causes her significant neck pain and stiffness. Her recent cervical and lumbar spine MRI reports are noted below. Patient would like to proceed with botox injections. I will refer her to neurology Dr. Saba for continuation of botox injections with EMG guidance. Patient also reports left SIJ pain and has received left buttock injection in the past with good results. I will send medical records request to her previous development disability specialist and [facility] PT[facility] for records and procedures review. She would like to undergo left diagnostic SIJ injection with local and fluoroscopy. She denies any fever, chills, abdominal or groin pain, weight changes, numbness, bladder/bowel dysfunction or saddle anesthesia. Patient reports left sided weakness due to history of stroke. She ambulates with spastic hemiparesis and scissors gait with the use of cane. PRIOR 04/14/21 Jesi is very pleasant 56 years old female who is in my office with complaining on pain in spasticity in the left upper extremity and left lower extremity. she suffered from this stroke 2 years ago. She developed spasticity and pain in left upper and left lower extremity. She reports her pain is 8 out of 10 to 4/10 she reports that she cannot take care of herself and she cannot function normally she is on permanent disability. She was working last time 2 and half years ago. She reports hot water alleviates her pain and topical medications help. She also received buttocks injection by her neurology provider. She reports that the pain is worse sitting. She reports her pain in terms of tissue damage is tugging, pulling, ranging, tingling, stinging, hurting, aching, heavy, tight, squeezing, tearing. She received physical therapy with [facility] and she denies any pain from physical therapy. She reports Botox injections help her pain however temporarily. She is suffering from hypertension. She has history of stroke. She was smoking 2-3 cigarettes a day. She is drinking alcohol socially. She consumes 2 and half cups of coffee in the morning. She is suffering from arthritis. She is taking aspirin a and Plavix as well as baclofen carvedilol and atorvastatin. She denies any surgical history. She reports Tylenol extra-strength give her good pain relief. Her main problem is spasticity. 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 HTN (hypertension) Cerebrovascular disease Chronic pain syndrome Sequela, post-stroke Surgical History Stented coronary artery Family History Mother Diabetes HTN (hypertension) Heart disease Social History Alcohol intake: never Patient Tobacco Use Status: Never used Tobacco Substance Use Type: Marijuana Review of Systems Const All systems reviewed & are unremarkable except as noted in HPI and below ENT Reports Normal hearing present Neuro Reports Normal hearing present, Denies confusion and Reports Sensory deficit (Neuro) Psych Denies confusion Physical Exam Vital Signs: Last Vital Signs Pulse 78 03/31/23 16:08 Resp 16 03/31/23 16:08 BP 138/90 H 03/31/23 16:08 Pulse Ox 97 03/31/23 16:08 Oxygen Delivery Method Room Air 03/31/23 16:08 BMI result Body Mass Index 25.2 Const General: No confusion Nutritional Appearance: average body habitus Orientation/consciousness: No confusion Limitations: ambulation with cane and other limitations (left sided weakness r/t CVA) HEENT Head: Yes normal to inspection, Yes normocephalic and Yes atraumatic Ears: hearing grossly normal bilaterally Face and sinus: Yes normal facial exam and Yes sinuses nontender Mouth: moist mucous membranes Eyes General: appearance normal, both eyes and all related structures Visual Osuna: normal visual osuna by confrontation Pupils: Equal, round and reactive pupils present EOM: EOMs intact bilaterally Neck Neck: Yes normal visual inspection, Yes full ROM and Yes no lymphadenopathy Chest Chest palpation & inspection: normal inspection of the chest Resp Effort & Inspection: normal respiratory effort, able to speak in complete sentences, no audible wheezes, no cough, respiratory effort not decreased, no respiratory distress and symmetric chest movement Cardio Jugular venous distension: no JVD Bruits: no carotid bruits Peripheral pulses: radial pulses present, posterior tibial pulses present and dorsalis pedis present GI Inspection: Yes normal to inspection and No distended Palpation (GI): Soft to palpation and nontender Back/Spine/Pelvis Cervical Spine: cervical muscular tenderness, pain with cervical ROM and No Cervical spine tenderness Thoracic/Lumbar Spine: thoracic and lumbar spine normal to inspection, Lasegue's sign negative, pain with thoraco-lumbar ROM, paraspinal muscle tenderness, thoraco-lumbar ROM limited, thoraco-lumbar spasm, No thoracic spinal tenderness, No lumbar spinal tenderness and straight leg raise positive Pelvis: no buttock ecchymosis and buttock tenderness on the left Sacroiliac joints: on the right nontender and on the left (+Halle, +Carlos's +Stinchfield's tests ) tender to palpation Skin General skin exam: no rashes or lesions noted Neuro General: No confusion Cranial nerves: Yes Equal, round and reactive pupils present and Yes Normal hearing present Cognition (Neuro): normal cognition Gait exam (Neuro): gait abnormal, Spastic hemiparesis gait present, Scissors gait present and Assistive device used Motor exam (neuro): Abnormal muscle tone present Sensory Exam: Sensory deficit (Neuro) Extrem General: Yes capillary refill normal, Yes no calf tenderness and Yes edema (left ankle and pedal non pitting edema) Psych Appearance: grossly normal Mental Status: mental status grossly normal Speech and movement: Normal speech and movement present Affect: normal affect Attitude: cooperative Thought process: Normal thought process present Thought content: Normal thought content present Insight: Good insight present (Psych) Judgement: Good judgement present (Psych) Assessment & Plan Assessment & Plan (1) Lumbar degenerative disc disease: Code(s): M51.36 - Other intervertebral disc degeneration, lumbar region (2) Spasticity due to old stroke: Code(s): I69.398 - Other sequelae of cerebral infarction; R25.2 - Cramp and spasm (3) Sacroiliac joint dysfunction of left side: Code(s): M53.3 - Sacrococcygeal disorders, not elsewhere classified (4) Sacroiliitis: Code(s): M46.1 - Sacroiliitis, not elsewhere classified (5) Chronic pain syndrome: Code(s): G89.4 - Chronic pain syndrome (6) Lumbar radiculopathy: Code(s): M54.16 - Radiculopathy, lumbar region (7) Cerebrovascular disease: Code(s): I67.9 - Cerebrovascular disease, unspecified (8) Sequela, post-stroke: Code(s): I69.30 - Unspecified sequelae of cerebral infarction (9) Trochanteric bursitis, right hip: Code(s): M70.61 - Trochanteric bursitis, right hip Plan Bilateral therapeutic SI joint injection resulted in excellent pain relief lasting for 1 month. However pain is back now and she is interested in sacroiliac joint stimulation innervation. She was registered for psychological evaluation however it never side for assessment. She needs to come again to the office to seat for assessment. After that we will schedule her for trial. In the past she received right trochanteric bursa steroid injections with good results. She was referred to Neurology for Botox injection related to spasticity of right upper extremity. Coding Level of Care Code Est Pt Level 3 (24351) Diagnoses Lumbar degenerative disc disease M51.36 Spasticity due to old stroke I69.398; R25.2 Sacroiliac joint dysfunction of left side M53.3 Sacroiliitis M46.1 Chronic pain syndrome G89.4 Lumbar radiculopathy M54.16 Cerebrovascular disease I67.9 Sequela, post-stroke I69.30 Trochanteric bursitis, right hip M70.61
[2023-03-31 16:08] VITALS: BP 138/90; PULSE 78; RESP 16; O2SAT 97; BMI 25.2
== END 2023-03-31 15:37 | disposition home or self-care (01) ==
PROVIDERS: PCP Internal Medicine; Visit Provider Anesthesiology
DX: M51.36 Other intervertebral disc degeneration, lumbar region (principal); I69.398 Other sequelae of cerebral infarction; R25.2 Cramp and spasm; M53.3 Sacrococcygeal disorders, not elsewhere classified; M46.1 Sacroiliitis, not elsewhere classified; G89.4 Chronic pain syndrome; M54.16 Radiculopathy, lumbar region; I67.9 Cerebrovascular disease, unspecified; I69.30 Unspecified sequelae of cerebral infarction; M70.61 Trochanteric bursitis, right hip
CPT/HCPCS: 99213

== ENCOUNTER → 2023-03-31 14:55 | Outpatient (BNVA) | payer MEDICARE, MEDICAID, SELFPAY | PROVIDERS: PCP Internal Medicine; Visit Provider Anesthesiology | DX: M51.36 Other intervertebral disc degeneration, lumbar region (principal); M53.3 Sacrococcygeal disorders, not elsewhere classified; M46.1 Sacroiliitis, not elsewhere classified; M54.16 Radiculopathy, lumbar region; M70.61 Trochanteric bursitis, right hip; G89.4 Chronic pain syndrome; I67.9 Cerebrovascular disease, unspecified; I69.398 Other sequelae of cerebral infarction; R25.2 Cramp and spasm | CPT/HCPCS: 99212 ==

== ENCOUNTER 2023-05-12 09:08 | Outpatient (AMB) | payer MEDICARE, MEDICAID, SELFPAY ==
--- NOTE | 2023-05-12 09:35 | MHC.OFFVIS ---
Intake Vital Signs 05/12/23 09:36 Height 5 ft 6 in Weight 147 lb BMI 23.7 BP 138/82 Blood Pressure Location Rt brachial Position Sitting Respiration 16 Pulse 69 Pulse Source Pulse Oximeter Pulse Oximetry (%) 98 Oxygen Delivery Method Room Air Intake Visit Reasons: Botox-LVM Intake Note: Pt presents to office for Botox injections. Office Equipment Technician Required: No Allergies ciprofloxacin [From Cipro] Allergy (Verified 05/12/23 09:35) unknown shellfish derived Allergy (Verified 05/12/23 09:35) unknown Medication List - Last Reconciled 05/12/23 by Carolyn Tate MD acetaminophen ER 650 mg PO Q8H PRN amlodipine 5 mg PO DAILY aspirin 81 mg PO DAILY atorvastatin 80 mg PO DAILY baclofen 10 mg PO TID carvedilol 12.5 mg PO BID cholecalciferol (vitamin D3) 25 mcg PO DAILY gabapentin 600 mg PO BID hydroxyzine HCl 10 mg PO BEDTIME hydroxyzine HCl 50 mg PO BEDTIME lorazepam mg PO losartan 50 mg PO DAILY losartan 50 mg PO DAILY omeprazole 40 mg PO DAILY paroxetine HCl 60 mg PO DAILY HPI HPI Comments History of Present Illness Details 58 y/o female comes for treatment of her cervical dystonia and left UE spasticity ? Side effects including spread of toxin effect, dysphagia, breathing difficulties , bronchitis etc was discussed in detail and the patient agreed to the procedure.An informed consent was obtained ??? Botulinum toxin type A 200units -was diluted with 4 cc of normal saline at a concentration of 25 units in 0.5cc saline. Lot number [id number] expiration 05/2025 ??? Muscles injected ??? left Splenius - 25 units each ??? right splenius 25 units ??? left Trapezius 50units each Left biceps 50 units Left Flexor Carpii radialis 25 units Left flexor carpii ulnaris 25 units ??? 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 HTN (hypertension) Cerebrovascular disease Chronic pain syndrome Sequela, post-stroke Surgical History Stented coronary artery Family History Mother Diabetes HTN (hypertension) Heart disease Social History Alcohol intake: never Patient Tobacco Use Status: Never used Tobacco Substance Use Type: Marijuana Review of Systems ENT Reports Normal hearing present Neuro Reports Normal hearing present and Reports Sensory deficit (Neuro) Physical Exam Vital Signs: Last Vital Signs Pulse 69 05/12/23 09:36 Resp 16 05/12/23 09:36 BP 138/82 05/12/23 09:36 Pulse Ox 98 05/12/23 09:36 Oxygen Delivery Method Room Air 05/12/23 09:36 BMI result Body Mass Index 23.7 Const General: cooperative and healthy appearing Orientation/consciousness: patient oriented x3 Eyes Pupils: Equal, round and reactive pupils present Neuro Other: spasmodic torticollis , tightness in the trapezius Left UE severe spasticty Left LE - mild spasticity Power 4/5 in left UE LE Fn normal on right Mild left facial paresis General: patient oriented x3 and moves all extremities Cranial nerves: Yes Equal, round and reactive pupils present, Yes Bilaterally intact EOM present, Yes Nystagmus not present, Yes Midline tongue present and Yes Normal hearing present Cognition (Neuro): normal cognition Gait exam (Neuro): Spastic hemiparesis gait present Sensory Exam: Sensory deficit (Neuro) Office Procedures Botulinum toxin Injection 56200 - Dystonia Procedure code (CPT) selection complete Office Meds onabotulinumtoxinA 200 unit solution for injection Performing Provider: Carolyn Tate MD Performing Location[place] [facility] Administered by: Carolyn Tate MD on 05/12/23 10:04 Dose Route Admin Location Dispensed Lot Number Expiration Date [facility] Student Affairs Vice President 200 unit IM 200 units [id number] 09/10/25 5921-7814-12 [employer] Comments: see hpi Assessment & Plan Assessment & Plan (1) Spasticity due to old stroke: Code(s): I69.398 - Other sequelae of cerebral infarction; R25.2 - Cramp and spasm (2) Spasmodic torticollis: Code(s): G24.3 - Spasmodic torticollis Plan she tolerated the procedure well she will call with any side effects Continue baclofen 10mg ti d OT for ue and PT for neck Orders: Orders AMB Botulinum toxin Injection Today G24.3 - Spasmodic torticollis Coding Level of Care Code Est Pt Level 1 (79815) Diagnoses Spasticity due to old stroke I69.398; R25.2 Spasmodic torticollis G24.3 CPT Codes Botox Injection - Botox 4: 32800 - Dystonia ([id number])
[2023-05-12 09:36] VITALS: BP 138/82; PULSE 69; RESP 16; O2SAT 98; BMI 23.7
== END 2023-05-12 10:03 | disposition home or self-care (01) ==
PROVIDERS: PCP Internal Medicine; Visit Provider Psychiatry & Neurology Neurology
DX: G24.3 Spasmodic torticollis (principal)
CPT/HCPCS: 64616

== ENCOUNTER → 2023-05-12 09:08 | Outpatient (BNVA) | payer MEDICARE, MEDICAID, SELFPAY | PROVIDERS: PCP Internal Medicine; Visit Provider Psychiatry & Neurology Neurology | DX: G24.3 Spasmodic torticollis (principal); I69.398 Other sequelae of cerebral infarction; R25.2 Cramp and spasm | CPT/HCPCS: 64616; 99211; J0585 ==

== ENCOUNTER 2023-06-14 13:53 | Outpatient (AMB) | payer MEDICARE, MEDICAID, SELFPAY ==
--- NOTE | 2023-06-14 14:22 | A.OFFVIS_ITS ---
Intake Vital Signs 06/14/23 14:31 Height 5 ft 6 in Weight 152 lb 8 oz BMI 24.6 BP 148/68 H Blood Pressure Location Rt brachial Position Sitting Respiration 12 Pulse 74 Pulse Source Pulse Oximeter Pulse Oximetry (%) 95 Oxygen Delivery Method Room Air Intake Visit Reasons: Follow up/ confirm Intake Note: Patient comes in for follow up. Reports pain 6/10. Allergies ciprofloxacin [From Cipro] Allergy (Verified 06/14/23 14:30) unknown shellfish derived Allergy (Verified 06/14/23 14:30) unknown HPI HPI Comments History of Present Illness Details Jesi today is in my office to receive right trochanteric bursa trigger point injection. She received the injection description of the injection see as below. She is still interested in sacroiliac joint innervation stimulation. She will be scheduled for in office psychological evaluation with [facility]. She also wants to schedule today in 1 month's injection in her trapezius muscle trigger point injection as well. In the past she received left sacroiliac joint injection with 100% pain relief from that area for 5 hours. That was diagnostic injection. After that she went for a bilateral therapeutic sacroiliac joint injection she reports pain 0 of 10 today she reports excellent mobility minimal limitation of the physical activity related to the pain in the lower back improved social interaction. In the same time she started to complain on pain in the projection of the trochanter on the right. Since her injection was relatively recent I offered her to come here in 1 month and receive trigger point injection in projection of the right trochanter. I also explained to her that we can repeat steroid injections into sacroiliac joints once in 3 months, provided that sacroiliac joint pain will come back not earlier than that. If it will be back later than that strongly benefit to the patient. Is also complaining on spasticity and pain in the left upper extremity due to the stroke. She was under impression that some of our office staff me or any other practitioners are able to perform spasticity Botox injections. Unfortunately it was not so. I will refer her to Dr. Paulino to perform spasticity Botox injections. She also reports seeing her neurologist over a month ago for Botox injections for left upper extremity spasticity due to stroke 2 years ago and has been working on her insurance for Botox approval. Patient reports gabapentin has been partially effective. Past Procedures: 11/04/21: Left Diagnostic SIJ injection- 100% relief for 5 hours. PRIOR: Patient is a pleasant 56 years old female who presents for follow up for spasticity and pain in left upper and left lower extremity and left sided SIJ pain status post stroke 2 years ago. She was previously evaluated in this office by Dr. Herron as noted below with plan for ITDD pump trial with baclofen and morphine. Patient states after researching, reviewing informational brochure, and talking to her family, she decided not to go with ITDD trial. Therefore, she has not completed behavioral evaluation. Patient states she used to get botox injections through her monitoring tech Dr. Rosy MD who referred her here for botox injection for LUE spasticity back in April. Her last botox injection was on 02/26/21 with EMG guidance with which patient reports she regained a good degree of strength, movement in both of LUE and LLE. She also completed PT and OT with mild improvements in her symptoms and continues HEP at home. Patient re ports LUE spasticity causes her significant neck pain and stiffness. Her recent cervical and lumbar spine MRI reports are noted below. Patient would like to proceed with botox injections. I will refer her to neurology Dr. Saba for continuation of botox injections with EMG guidance. Patient also reports left SIJ pain and has received left buttock injection in the past with good results. I will send medical records request to her previous monitoring tech and [facility] for records and procedures review. She would like to undergo left diagnostic SIJ injection with local and fluoroscopy. She denies any fever, chills, abdominal or groin pain, weight changes, numbness, bladder/bowel dysfunction or saddle anesthesia. Patient reports left sided weakness due to history of stroke. She ambulates with spastic hemiparesis and scissors gait with the use of cane. PRIOR 04/14/21 Jesi is very pleasant 56 years old female who is in my office with complaining on pain in spasticity in the left upper extremity and left lower extremity. she suffered from this stroke 2 years ago. She developed spasticity and pain in left upper and left lower extremity. She reports her pain is 8 out of 10 to 4 /10 she reports that she cannot take care of herself and she cannot function normally she is on permanent disability. She was working last time 2 and half years ago. She reports hot water alleviates her pain and topical medications help. She also received buttocks injection by her neurology provider. She reports that the pain is worse sitting. She reports her pain in terms of tissue damage is tugging, pulling, ranging, tingling, stinging, hurting, aching, heavy, tight, squeezing, tearing. She received physical therapy with [facility] and she denies any pain from physical therapy. She reports Botox injections help her pain however temporarily. She is suffering from hypertension. She has history of stroke. She was smoking 2-3 cigarettes a day. She is drinking alcohol socially. She consumes 2 and half cups of coffee in the morning. She is suffering from arthritis. She is taking aspirin a and Plavix as well as baclofen carvedilol and atorvastatin. She denies any surgical history. She reports Tylenol extra-strength give her good pain relief. Her main problem is spasticity. 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 HTN (hypertension) Cerebrovascular disease Chronic pain syndrome Sequela, post-stroke Surgical History Stented coronary artery Family History Mother Diabetes HTN (hypertension) Heart disease Social History Alcohol intake: never Patient Tobacco Use Status: Never used Tobacco Substance Use Type: Marijuana Review of Systems Const All systems reviewed & are unremarkable except as noted in HPI and below ENT Reports Normal hearing present Neuro Reports Normal hearing present, Denies confusion and Reports Sensory deficit (Neuro) Psych Denies confusion Physical Exam Vital Signs: Last Vital Signs Pulse 74 06/14/23 14:31 Resp 12 06/14/23 14:31 BP 148/68 H 06/14/23 14:31 Pulse Ox 95 06/14/23 14:31 Oxygen Delivery Method Room Air 06/14/23 14:31 BMI result Body Mass Index 24.6 Const General: No confusion Nutritional Appearance: average body habitus Orientation/consciousness: No confusion Limitations: ambulation with cane and other limitations (left sided weakness r/t CVA) HEENT Head: Yes normal to inspection, Yes normocephalic and Yes atraumatic Ears: hearing grossly normal bilaterally Face and sinus: Yes normal facial exam and Yes sinuses nontender Mouth: moist mucous membranes Eyes General: appearance normal, both eyes and all related structures Visual Osuna: normal visual osuna by confrontation Pupils: Equal, round and reactive pupils present EOM: EOMs intact bilaterally Neck Neck: Yes normal visual inspection, Yes full ROM and Yes no lymphadenopathy Chest Chest palpation & inspection: normal inspection of the chest Resp Effort & Inspection: normal respiratory effort, able to speak in complete senten comfort, no audible wheezes, no cough, respiratory effort not decreased, no respiratory distress and symmetric chest movement Cardio Jugular venous distension: no JVD Bruits: no carotid bruits Peripheral pulses: radial pulses present, posterior tibial pulses present and dorsalis pedis present GI Inspection: Yes normal to inspection and No distended Palpation (GI): Soft to palpation and nontender Back/Spine/Pelvis Cervical Spine: cervical muscular tenderness, pain with cervical ROM and No Cervical spine tenderness Thoracic/Lumbar Spine: thoracic and lumbar spine normal to inspection, Lasegue's sign negative, pain with thoraco-lumbar ROM, paraspinal muscle tenderness, thoraco-lumbar ROM limited, thoraco-lumbar spasm, No thoracic spinal tenderness, No lumbar spinal tenderness and straight leg raise positive Pelvis: no buttock ecchymosis and buttock tenderness on the left Sacroiliac joints: on the right nontender and on the left (+Halle, +Carlos's +Stinchfield's tests ) tender to palpation Skin General skin exam: no rashes or lesions noted Neuro General: No confusion Cranial nerves: Yes Equal, round and reactive pupils present and Yes Normal hearing present Cognition (Neuro): normal cognition Gait exam (Neuro): gait abnormal, Spastic hemiparesis gait present, Scissors gait present and Assistive device used Motor exam (neuro): Abnormal muscle tone present Sensory Exam: Sensory deficit (Neuro) Extrem General: Yes capillary refill normal, Yes no calf tenderness and Yes edema (left ankle and pedal non pitting edema) Psych Appearance: grossly normal Mental Status: mental status grossly normal Speech and movement: Normal speech and movement present Affect: normal affect Attitude: cooperative Thought process: Normal thought process present Thought content: Normal thought content present Insight: Good insight present (Psych) Judgement: Good judgement present (Psych) Assessment & Plan Assessment & Plan (1) Lumbar degenerative disc disease: Code(s): M51.36 - Other intervertebral disc degeneration, lumbar region (2) Spasticity due to old stroke: Code(s): I69.398 - Other sequelae of cerebral infarction; R25.2 - Cramp and spasm (3) Sacroiliac joint dysfunction of left side: Code(s): M53.3 - Sacrococcygeal disorders, not elsewhere classified (4) Sacroiliitis: Code(s): M46.1 - Sacroiliitis, not elsewhere classified (5) Chronic pain syndrome: Code(s): G89.4 - Chronic pain syndrome (6) Lumbar radiculopathy: Code(s): M54.16 - Radiculopathy, lumbar region (7) Cerebrovascular disease: Code(s): I67.9 - Cerebrovascular disease, unspecified (8) Sequela, post-stroke: Code(s): I69.30 - Unspecified sequelae of cerebral infarction (9) Trochanteric bursitis, right hip: Code(s): M70.61 - Trochanteric bursitis, right hip (10) Trochanteric bursitis: Code(s): M70.60 - Trochanteric bursitis, unspecified hip Plan: The patient was positioned left lateral decubitus on the examination bed. Informed consent was thoroughly explained to the patient. the trochanteric bursa area was prepped with ChloraPrep and draped with utility towels. The injection of the 10 cc of bupivacaine 0.5% mixed with Kenalog 40 mg was performed into trochanteric bursa blindly with spreading of the medication around the bursa and inside the bursa in fan-like fashion. The patient tolerated procedure well. The needle was withdrawn sterile Band-Aid was applied. Plan Bilateral therapeutic SI joint injection resulted in excellent pain relief lasting for 1 month. She is interested in sacroiliac joint innervation stimulation with cure on X. she needs to go for psychological evaluation with [facility]. She received today the injection into the trochanteric bursa. In 1 month she will be scheduled for trigger point injection in the trapezius muscle. Coding Level of Care Code Est Pt Level 3 (78407) Procedure Only Diagnoses Lumbar degenerative disc disease M51.36 Spasticity due to old stroke I69.398; R25.2 Sacroiliac joint dysfunction of left side M53.3 Sacroiliitis M46.1 Chronic pain syndrome G89.4 Lumbar radiculopathy M54.16 Cerebrovascular disease I67.9 Sequela, post-stroke I69.30 Trochanteric bursitis, right hip M70.61 Trochanteric bursitis M70.60
[2023-06-14 14:31] VITALS: BP 148/68; PULSE 74; RESP 12; O2SAT 95; BMI 24.6
== END 2023-06-14 14:55 | disposition home or self-care (01) ==
PROVIDERS: PCP Internal Medicine; Visit Provider Anesthesiology
DX: G89.4 Chronic pain syndrome (principal); M51.36 Other intervertebral disc degeneration, lumbar region; I69.398 Other sequelae of cerebral infarction; R25.2 Cramp and spasm; M53.3 Sacrococcygeal disorders, not elsewhere classified; M46.1 Sacroiliitis, not elsewhere classified; M54.16 Radiculopathy, lumbar region; I67.9 Cerebrovascular disease, unspecified; I69.30 Unspecified sequelae of cerebral infarction; M70.61 Trochanteric bursitis, right hip; M70.60 Trochanteric bursitis, unspecified hip
CPT/HCPCS: 27096; 99213

== ENCOUNTER → 2023-06-14 13:53 | Outpatient (BNVA) | payer MEDICARE, MEDICAID, SELFPAY | PROVIDERS: PCP Internal Medicine; Visit Provider Anesthesiology | DX: M51.36 Other intervertebral disc degeneration, lumbar region (principal); M53.3 Sacrococcygeal disorders, not elsewhere classified; M46.1 Sacroiliitis, not elsewhere classified; M54.16 Radiculopathy, lumbar region; M70.61 Trochanteric bursitis, right hip; M70.60 Trochanteric bursitis, unspecified hip; G89.4 Chronic pain syndrome; I69.398 Other sequelae of cerebral infarction; R25.2 Cramp and spasm; I67.9 Cerebrovascular disease, unspecified; I69.30 Unspecified sequelae of cerebral infarction | CPT/HCPCS: 27096; 99212; J0665; J3301 ==

== ENCOUNTER → 2023-07-15 13:43 | Outpatient (BNVA) | payer MEDICARE, MEDICAID, SELFPAY | PROVIDERS: PCP Internal Medicine; Visit Provider Anesthesiology | DX: M53.3 Sacrococcygeal disorders, not elsewhere classified (principal); M51.36 Other intervertebral disc degeneration, lumbar region; M46.1 Sacroiliitis, not elsewhere classified; M54.16 Radiculopathy, lumbar region; M70.61 Trochanteric bursitis, right hip; M70.60 Trochanteric bursitis, unspecified hip; I69.398 Other sequelae of cerebral infarction; R25.2 Cramp and spasm; I67.9 Cerebrovascular disease, unspecified; G89.4 Chronic pain syndrome | CPT/HCPCS: 20552; 99212; J0665; J3301 ==

== ENCOUNTER 2023-08-18 12:56 | Outpatient (AMB) | payer MEDICARE, MEDICAID, SELFPAY ==
--- NOTE | 2023-08-18 13:02 | A.OFFVIS_ITS ---
Vital Signs 08/18/23 13:03 Height 5 ft 6 in Weight 153 lb 4 oz BMI 24.7 BP 112/68 Blood Pressure Location Rt brachial Respiration 16 Pulse 47 L Pulse Source Pulse Oximeter Pulse Oximetry (%) 98 Oxygen Delivery Method Room Air Intake Visit Reasons: Botox - LVM w/add Intake Note: Pt presents to the office for Botox injections. Weaving Supervisor Required: No Allergies ciprofloxacin [From Cipro] Allergy (Verified 08/18/23 13:03) unknown shellfish derived Allergy (Verified 08/18/23 13:03) unknown Medication List - Last Reconciled 08/18/23 by Carolyn Tate MD acetaminophen ER 650 mg PO Q8H PRN amlodipine 5 mg PO DAILY aspirin 81 mg PO DAILY atorvastatin 80 mg PO DAILY baclofen 10 mg PO TID carvedilol 12.5 mg PO BID cholecalciferol (vitamin D3) 25 mcg PO DAILY gabapentin 600 mg PO BID hydroxyzine HCl 10 mg PO BEDTIME hydroxyzine HCl 50 mg PO BEDTIME lorazepam mg PO losartan 50 mg PO DAILY losartan 50 mg PO DAILY omeprazole 40 mg PO DAILY paroxetine HCl 60 mg PO DAILY HPI Comments Details: 58 y/o female comes for treatment of her cervical dystonia and left UE spasticity ? Side effects including spread of toxin effect, dysphagia, breathing difficulties , bronchitis etc was discussed in detail and the patient agreed to the procedure.An informed consent was obtained ??? Botulinum toxin type A 200units -was diluted with 4 cc of normal saline at a concentration of 25 units in 0.5cc saline. Lot number [id number] expiration 07/2025 ??? Muscles injected ??? left Splenius - 25 units each ? left Trapezius 50units each Left biceps 50 units Left pronator 25 units Left Flexor Carpii radialis 25 units Left flexor carpii ulnaris 25 units ??? 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 HTN (hypertension) Cerebrovascular disease Chronic pain syndrome Sequela, post-stroke Surgical History Stented coronary artery Family History Mother Diabetes HTN (hypertension) Heart disease Social History Alcohol intake: never Patient Tobacco Use Status: Never used Tobacco Substance Use Type: Marijuana Review of Systems ENT Reports Normal hearing present Neuro Reports Normal hearing present and Reports Sensory deficit (Neuro) Physical Exam Vital Signs: Last Vital Signs Pulse 47 L 08/18/23 13:03 Resp 16 08/18/23 13:03 BP 112/68 08/18/23 13:03 Pulse Ox 98 08/18/23 13:03 Oxygen Delivery Method Room Air 08/18/23 13:03 BMI result Body Mass Index 24.7 Const General: cooperative and healthy appearing Orientation/consciousness: patient oriented x3 Eyes Pupils: Equal, round and reactive pupils present Neuro Other: spasmodic torticollis , tightness in the trapezius Left UE severe spasticty Left LE - mild spasticity Power 4/5 in left UE LE Fn normal on right Mild left facial paresis General: patient oriented x3 and moves all extremities Cranial nerves: Yes Equal, round and reactive pupils present, Yes Bilaterally intact EOM present, Yes Nystagmus not present, Yes Midline tongue present and Yes Normal hearing present Cognition (Neuro): normal cognition Gait exam (Neuro): Spastic hemiparesis gait present Sensory Exam: Sensory deficit (Neuro) Office Procedures Botulinum toxin Injection 22875 - Dystonia 54441 - Extr 1-4 Procedure code (CPT) selection complete Office Meds onabotulinumtoxinA 200 unit solution for injection Performing Provider: Carolyn Tate MD Performing Location: [facility] Administered by: Carolyn Tate MD on 08/18/23 14:11 Dose Route Admin Location Dispensed Lot Number Expiration Date [facility] Respiratory Coordinator 200 unit subcut 200 units [id number] 09/10/25 3342-9118-61 [employer] Comments: see HPI Assessment & Plan Assessment & Plan (1) Spasticity due to old stroke: Code(s): I69.398 - Other sequelae of cerebral infarction; R25.2 - Cramp and spasm Category: Medical (2) Spasmodic torticollis: Code(s): G24.3 - Spasmodic torticollis Category: Medical Plan she tolerated the procedure well she will call with any side effects Continue baclofen 10mg ti d refer to Youth Ministry Director for further management of spasticty Orders: Orders OT Evaluation and Treatment Today I69.398 - Other sequelae of cerebral infarction, R25.2 - Cramp and spasm AMB Botulinum toxin Injection Today G24.3 - Spasmodic torticollis, I69.398 - Other sequelae of cerebral infarction, R25.2 - Cramp and spasm Referrals Physiatry Referral I69.398 - Other sequelae of cerebral infarction, R25.2 - Cramp and spasm Medications: New onabotulinumtoxinA 200 units subcut ONCE 1 ea 0RF spasmodic torticollis G24.3 - Spasmodic torticollis, I69.398 - Other sequelae of cerebral infarction, R25.2 - Cramp and spasm Coding Level of Care Code Est Pt Level 1 (07512) Diagnoses Spasticity due to old stroke I69.398; R25.2 Spasmodic torticollis G24.3 CPT Codes Botox Injection - Botox 4: 57087 - Dystonia ([id number]) Botox Injection - Botox 5: 10818 - Extr 1-4 ([id number])
[2023-08-18 13:03] VITALS: BP 112/68; PULSE 47; RESP 16; O2SAT 98; BMI 24.7
== END 2023-08-18 13:29 | disposition home or self-care (01) ==
PROVIDERS: PCP Internal Medicine; Visit Provider Psychiatry & Neurology Neurology
DX: G24.3 Spasmodic torticollis (principal); I69.334 Monoplegia of upper limb following cerebral infarction affecting left non-dominant side
CPT/HCPCS: 64616; 64642

== ENCOUNTER → 2023-08-18 12:56 | Outpatient (BNVA) | payer MEDICARE, MEDICAID, SELFPAY | PROVIDERS: PCP Internal Medicine; Visit Provider Psychiatry & Neurology Neurology | DX: G24.3 Spasmodic torticollis (principal); I69.398 Other sequelae of cerebral infarction; R25.2 Cramp and spasm | CPT/HCPCS: 64616; 64642; 99211; J0585 ==

== ENCOUNTER 2023-10-18 12:56 | Outpatient (AMB) | payer MEDICARE, MEDICAID, SELFPAY ==
--- NOTE | 2023-10-18 13:19 | A.OFFVIS_ITS ---
Vital Signs 10/18/23 13:35 Height 5 ft 6 in Weight 147 lb BMI 23.7 BP 128/62 Blood Pressure Location Lt brachial Position Sitting Respiration 16 Pulse 62 Pulse Source Pulse Oximeter Pulse Oximetry (%) 95 Oxygen Delivery Method Room Air Intake Visit Reasons: trigger point injection Intake Note: Patient comes in for trigger point injection. Reports pain 8/10. Allergies ciprofloxacin [From Cipro] Allergy (Verified 10/18/23 13:34) unknown shellfish derived Allergy (Verified 10/18/23 13:34) unknown HPI Comments Details: Jesi today is in my office to receive right-sided trochanteric bursa/ trigger point injections, see description as below. She received the injection description of the injection see as below. She is still interested in sacroiliac joint innervation stimulation. However unfortunately it is not clear where does she stand with her [facility] psychological evaluation. She stated that she went through the questionnaire with her daughter however she never went for conversation with the psychiatrist or psychologist. We are waiting for the results of it. Prior: In the past she received left sacroiliac joint injection with 100% pain relief from that area for 5 hours. That was diagnostic injection. After that she went for a bilateral therapeutic sacroiliac joint injection she reports pain 0 of 10 today she reports excellent mobility minimal limitation of the physical activity related to the pain in the lower back improved social interaction. In the same time she started to complain on pain in the projection of the trochanter on the right. Since her injection was relatively recent I offered her to come here in 1 month and receive trigger point injection in projection of the right trochanter. I also explained to her that we can repeat steroid injections into sacroiliac joints once in 3 months, provided that sacroiliac joint pain will come back not earlier than that. If it will be back later than that strongly benefit to the patient. Is also complaining on spasticity and pain in the left upper extremity due to the stroke. She was under impression that some of our office staff me or any other practitioners are able to perform spasticity Botox injections. Unfortunately it was not so. I will refer her to Dr. Paulino to perform spasticity Botox injections. She also reports seeing her neurologist over a month ago for Botox injections for left upper extremity spasticity due to stroke 2 years ago and has been working on her insurance for Botox approval. Patient reports gabapentin has been partially effective. Past Procedures: 11/04/21: Left Diagnostic SIJ injection-100% relief for 5 hours. PRIOR: Patient is a pleasant 56 years old female who presents for follow up for spasticity and pain in left upper and left lower extremity and left sided SIJ pain status post stroke 2 years ago. She was previously evaluated in this office by Dr. Herron as noted below with plan for ITDD pump trial with baclofen and morphine. Patient states after researching, reviewing informational brochure, and talking to her family, she decided not to go with ITDD trial. Therefore, she has not completed behavioral evaluation. Patient states she used to get botox injections through her [employer] supervisor Dr. Rosy MD who referred her here for botox injection for LUE spasticity back in April. Her last botox injection was on 02/26/21 with EMG guidance with which patient reports she regained a good degree of strength, movement in both of LUE and LLE. She also completed PT and OT with mild improvements in her symptoms and continues HEP at home. Patient reports LUE spasticity causes her significant neck pain and stiffness. Her recent cervical and lumbar spine MRI reports are noted below. Patient would like to proceed with botox injections. I will refer her to neurology Dr. Saba for continuation of botox injections with EMG guidance. Patient also reports left SIJ pain and has received left buttock injection in the past with good results. 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 PT[facility] for records and procedures review. She would like to undergo left diagnostic SIJ injection with local and fluoroscopy. She denies any fever, chills, abdominal or groin pain, weight changes, numbness, bladder/bowel dysfunction or saddle anesthesia. Patient reports left sided weakness due to history of stroke. She ambulates with spastic hemiparesis and scissors gait with the use of cane. PRIOR 04/14/21 Jesi is very pleasant 56 years old female who is in my office with complaining on pain in spasticity in the left upper extremity and left lower extremity. she suffered from this stroke 2 years ago. She developed spasticity and pain in left upper and left lower extremity. She reports her pain is 8 out of 10 to 4/10 she reports that she cannot take care of herself and she cannot function normally she is on permanent disability. She was working last time 2 and half years ago. She reports hot water alleviates her pain and topical medications help. She also received buttocks injection by her neurology provider. She reports that the pain is worse sitting. She reports her pain in terms of tissue damage is tugging, pulling, ranging, tingling, stinging, hurting, aching, heavy, tight, squeezing, tearing. She received physical therapy with [facility] and she denies any pain from physical therapy. She reports Botox injections help her pain however temporarily. She is suffering from hypertension. She has history of stroke. She was smoking 2-3 cigarettes a day. She is drinking alcohol socially. She consumes 2 and half cups of coffee in the morning. She is suffering from arthritis. She is taking aspirin a and Plavix as well as baclofen carvedilol and atorvastatin. She denies any surgical history. She reports Tylenol extra-strength give her good pain relief. Her main problem is spasticity. 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 HTN (hypertension) Cerebrovascular disease Chronic pain syndrome Sequela, post-stroke Surgical History Stented coronary artery Family History Mother Diabetes HTN (hypertension) Heart disease Social History Alcohol intake: never Patient Tobacco Use Status: Never used Tobacco Substance Use Type: Marijuana Review of Systems Const All systems reviewed & are unremarkable except as noted in HPI and below ENT Reports Normal hearing present Neuro Reports Normal hearing present, Denies confusion and Reports Sensory deficit (Neuro) Psych Denies confusion Physical Exam Vital Signs: Last Vital Signs Pulse 62 10/18/23 13:35 Resp 16 10/18/23 13:35 BP 128/62 10/18/23 13:35 Pulse Ox 95 10/18/23 13:35 Oxygen Delivery Method Room Air 10/18/23 13:35 BMI result Body Mass Index 23.7 Const General: No confusion Nutritional Appearance: average body habitus Orientation/consciousness: No confusion Limitations: ambulation with cane and other limitations (left sided weakness r/t CVA) HEENT Head: Yes normal to inspection, Yes normocephalic and Yes atraumatic Ears: hearing grossly normal bilaterally Face and sinus: Yes normal facial exam and Yes sinuses nontender Mouth: moist mucous membranes Eyes General: appearance normal, both eyes and all related structures Visual Osuna: normal visual osuna by confrontation Pupils: Equal, round and reactive pupils present EOM: EOMs intact bilaterally Neck Neck: Yes normal visual inspection, Yes full ROM and Yes no lymphadenopathy Chest Chest palpation & inspection: normal inspection of the chest Resp Effort & Inspection: normal respiratory effort, able to speak in complete sentences, no audible wheezes, no cough, respiratory effort not decreased, no respiratory distress and symmetric chest movement Cardio Jugular venous distension: no JVD Bruits: no carotid bruits Peripheral pulses: radial pulses present, posterior tibial pulses present and dorsalis pedis present GI Inspection: Yes normal to inspection and No distended Palpation (GI): Soft to palpation and nontender Back/Spine/Pelvis Cervical Spine: cervical muscular tenderness, pain with cervical ROM and No Cervical spine tenderness Thoracic/Lumbar Spine: thoracic and lumbar spine normal to inspection, Lasegue's sign negative, pain with thoraco-lumbar ROM, paraspinal muscle tenderness, thoraco-lumbar ROM limited, thoraco-lumbar spasm, No thoracic spinal tenderness, No lumbar spinal tenderness and straight leg raise positive Pelvis: no buttock ecchymosis and buttock tenderness on the left Sacroiliac joints: on the right nontender and on the left (+Halle, +Carlos's +Stinchfield's tests ) tender to palpation Skin General skin exam: no rashes or lesions noted Neuro General: No confusion Cranial nerves: Yes Equal, round and reactive pupils present and Yes Normal hearing present Cognition (Neuro): normal cognition Gait exam (Neuro): gait abnormal, Spastic hemiparesis gait present, Scissors gait present and Assistive device used (Cane) Sensory Exam: Sensory deficit (Neuro) Extrem General: Yes capillary refill normal, Yes no calf tenderness and Yes edema (left ankle and pedal non pitting edema) Psych Appearance: grossly normal Mental Status: mental status grossly normal Speech and movement: Normal speech and movement present Affect: normal affect Attitude: cooperative Thought process: Normal thought process present Thought content: Normal thought content present Insight: Good insight present (Psych) Judgement: Good judgement present (Psych) Assessment & Plan Assessment & Plan (1) Lumbar degenerative disc disease: Code(s): M51.36 - Other intervertebral disc degeneration, lumbar region Category: Medical (2) Spasticity due to old stroke: Code(s): I69.398 - Other sequelae of cerebral infarction; R25.2 - Cramp and spasm Category: Medical (3) Sacroiliac joint dysfunction of left side: Code(s): M53.3 - Sacrococcygeal disorders, not elsewhere classified Category: Medical (4) Sacroiliitis: Code(s): M46.1 - Sacroiliitis, not elsewhere classified Category: Medical (5) Chronic pain syndrome: Code(s): G89.4 - Chronic pain syndrome Category: Medical (6) Lumbar radiculopathy: Code(s): M54.16 - Radiculopathy, lumbar region Category: Medical (7) Cerebrovascular disease: Code(s): I67.9 - Cerebrovascular disease, unspecified Category: Medical (8) Sequela, post-stroke: Code(s): I69.30 - Unspecified sequelae of cerebral infarction Category: Medical (9) Trochanteric bursitis, right hip: Code(s): M70.61 - Trochanteric bursitis, right hip Category: Medical (10) Trochanteric bursitis: Code(s): M70.60 - Trochanteric bursitis, unspecified hip Category: Medical (11) Myalgia, other site: Code(s): M79.18 - Myalgia, other site Category: Medical Plan: The patient was positioned laying on the left lateral decubitus position the area of the right trochanteric bursa was prepped with ChloraPrep and then sterilely obtained solution of the bupivacaine 0.5% mixed with Kenalog 40 mg was injected into most painful area in the projection of the right trochanteric bursa in fan-like fashion.. The patient tolerated the procedure well. The needle was removed sterile Band-Aid was applied. Plan Bilateral therapeutic SI joint injection resulted in excellent pain relief lasting for 1 month. She is interested in sacroiliac joint innervation stimulation with cure on X. she needs to go for psychological evaluation with [facility]. She received today the injection into the projection of the trochanteric bursa see as above. It is not clear whether the patient past psychological evaluation. Unfortunately we can not contact [employer] [place] today to figure out whether she stand on [employer] [facility] to treat her sacroiliitis with PNS cure on X. Patient Instructions: I here by testify that I spent 32 minutes in conversation with this patient as well as planning her care and organizing this note. Coding Level of Care Code Est Pt Level 4 (78039) Procedure Only Diagnoses Lumbar degenerative disc disease M51.36 Spasticity due to old stroke I69.398; R25.2 Sacroiliac joint dysfunction of left side M53.3 Sacroiliitis M46.1 Chronic pain syndrome G89.4 Lumbar radiculopathy M54.16 Cerebrovascular disease I67.9 Sequela, post-stroke I69.30 Trochanteric bursitis, right hip M70.61 Trochanteric bursitis M70.60 Myalgia, other site M79.18
[2023-10-18 13:35] VITALS: BP 128/62; PULSE 62; RESP 16; O2SAT 95; BMI 23.7
== END 2023-10-18 13:52 | disposition home or self-care (01) ==
PROVIDERS: PCP Internal Medicine; Visit Provider Anesthesiology
DX: M51.36 Other intervertebral disc degeneration, lumbar region (principal); I69.398 Other sequelae of cerebral infarction; R25.2 Cramp and spasm; M53.3 Sacrococcygeal disorders, not elsewhere classified; M79.18 Myalgia, other site; M46.1 Sacroiliitis, not elsewhere classified; G89.4 Chronic pain syndrome; M54.16 Radiculopathy, lumbar region; I67.9 Cerebrovascular disease, unspecified; I69.30 Unspecified sequelae of cerebral infarction; M70.61 Trochanteric bursitis, right hip; M70.60 Trochanteric bursitis, unspecified hip
CPT/HCPCS: 20552; 99214

== ENCOUNTER → 2023-10-18 12:56 | Outpatient (BNVA) | payer MEDICARE, MEDICAID, SELFPAY | PROVIDERS: PCP Internal Medicine; Visit Provider Anesthesiology | DX: M79.18 Myalgia, other site (principal); M70.61 Trochanteric bursitis, right hip; M51.36 Other intervertebral disc degeneration, lumbar region; I69.398 Other sequelae of cerebral infarction; M53.3 Sacrococcygeal disorders, not elsewhere classified; M46.1 Sacroiliitis, not elsewhere classified; G89.4 Chronic pain syndrome; M54.16 Radiculopathy, lumbar region; I67.9 Cerebrovascular disease, unspecified | CPT/HCPCS: 20552; 99212; J0665; J3301 ==

== ENCOUNTER 2024-02-07 15:19 | Outpatient (AMB) | payer MEDICARE, MEDICAID, SELFPAY ==
--- NOTE | 2024-02-07 15:21 | MHC.OFFVIS ---
Vital Signs 02/07/24 15:30 Height 5 ft 6 in Weight 144 lb 6 oz BMI 23.3 BP 122/76 Blood Pressure Location Lt brachial Position Sitting Respiration 16 Pulse 80 Pulse Source Pulse Oximeter Pulse Oximetry (%) 96 Oxygen Delivery Method Room Air Intake Visit Reasons: right trochanteric bursa/trigger point injection Intake Note: Patient comes in for trigger point injection. Reports pain 8/10. Accompanied by: Spouse Allergies ciprofloxacin [From Cipro] Allergy (Verified 02/07/24 15:31) unknown shellfish derived Allergy (Verified 02/07/24 15:31) unknown HPI Comments Details: Jesi today is in my office to receive bilateral trapezius muscle trigger point injections, see description as below. PNS withCuronix for sacroiliac pathology was not discussed today. Several time she was offered opportunity to come for yet another psychological evaluation here in the office with [facility] however she did not come. It appears that she is not interested in sacroiliac joint stimulation treatment. Prior: In the past she received left sacroiliac joint injection with 100% pain relief from that area for 5 hours. That was diagnostic injection. After that she went for a bilateral therapeutic sacroiliac joint injection she reported complete pain relief, excellent mobility minimal limitation of the physical activity related to the pain in the lower back improved social interaction. She complains on pain in the projection of trochanter as well as pain in the projection of trapezius muscle on the upper shoulder on the right. She is also complaining on spasticity and pain in the left upper extremity due to the stroke. Past Procedures: 11/04/21: Left Diagnostic SIJ injection-100% relief for 5 hours. PRIOR 04/14/21 Jesi is very pleasant 56 years old female who is in my office with complaining on pain in spasticity in the left upper extremity and left lower extremity. she suffered from this stroke 2 years ago. She developed spasticity and pain in left upper and left lower extremity. She reports her pain is 8 out of 10 to 4/10 she reports that she cannot take care of herself and she cannot function normally she is on permanent disability. She was working last time 2 and half years ago. She reports hot water alleviates her pain and topical medications help. She also received buttocks injection by her neurology provider. She reports that the pain is worse sitting. . She received physical therapy with [facility] and she denies any help from physical therapy. She reports Botox injections help her pain however temporarily. 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 HTN (hypertension) Cerebrovascular disease Chronic pain syndrome Sequela, post-stroke Surgical History Stented coronary artery Family History Mother Diabetes HTN (hypertension) Heart disease Social History Alcohol intake: never Patient Tobacco Use Status: Never used Tobacco Substance Use Type: Marijuana Review of Systems Const All systems reviewed & are unremarkable except as noted in HPI and below ENT Reports Normal hearing present Neuro Reports Normal hearing present, Denies confusion and Reports Sensory deficit (Neuro) Psych Denies confusion Physical Exam Vital Signs: Last Vital Signs Pulse 80 02/07/24 15:30 Resp 16 02/07/24 15:30 BP 122/76 02/07/24 15:30 Pulse Ox 96 02/07/24 15:30 Oxygen Delivery Method Room Air 02/07/24 15:30 BMI result Body Mass Index 23.3 Const General: No confusion Nutritional Appearance: average body habitus Orientation/consciousness: No confusion Limitations: ambulation with cane and other limitations (left sided weakness r/t CVA) HEENT Head: Yes normal to inspection, Yes normocephalic and Yes atraumatic Ears: hearing grossly normal bilaterally Face and sinus: Yes normal facial exam and Yes sinuses nontender Mouth: moist mucous membranes Eyes General: appearance normal, both eyes and all related structures Visual Osuna: normal visual osuna by confrontation Pupils: Equal, round and reactive pupils present EOM: EOMs intact bilaterally Neck Neck: Yes normal visual inspection, Yes full ROM and Yes no lymphadenopathy Chest Chest palpation & inspection: normal inspection of the chest Resp Effort & Inspection: normal respiratory effort, able to speak in complete sentences, no audible wheezes, no cough, respiratory effort not decreased, no respiratory distress and symmetric chest movement Cardio Jugular venous distension: no JVD Bruits: no carotid bruits Peripheral pulses: radial pulses present, posterior tibial pulses present and dorsalis pedis present GI Inspection: Yes normal to inspection and No distended Palpation (GI): Soft to palpation and nontender Back/Spine/Pelvis Cervical Spine: cervical muscular tenderness, pain with cervical ROM and No Cervical spine tenderness Thoracic/Lumbar Spine: thoracic and lumbar spine normal to inspection, Lasegue's sign negative, pain with thoraco-lumbar ROM, paraspinal muscle tenderness, thoraco-lumbar ROM limited, thoraco-lumbar spasm, No thoracic spinal tenderness, No lumbar spinal tenderness and straight leg raise positive Pelvis: no buttock ecchymosis and buttock tenderness on the left Sacroiliac joints: on the right nontender and on the left (+Halle, +Carlos's +Stinchfield's tests ) tender to palpation Skin General skin exam: no rashes or lesions noted Neuro General: No confusion Cranial nerves: Yes Equal, round and reactive pupils present and Yes Normal hearing present Cognition (Neuro): normal cognition Gait exam (Neuro): gait abnormal, Spastic hemiparesis gait present, Scissors gait present and Assistive device used (Cane) Sensory Exam: Sensory deficit (Neuro) Extrem General: Yes capillary refill normal, Yes no calf tenderness and Yes edema (left ankle and pedal non pitting edema) Psych Appearance: grossly normal Mental Status: mental status grossly normal Speech and movement: Normal speech and movement present Affect: normal affect Attitude: cooperative Thought process: Normal thought process present Thought content: Normal thought content present Insight: Good insight present (Psych) Judgement: Good judgement present (Psych) Assessment & Plan Assessment & Plan (1) Lumbar degenerative disc disease: Code(s): M51.36 - Other intervertebral disc degeneration, lumbar region Category: Medical (2) Spasticity due to old stroke: Code(s): I69.398 - Other sequelae of cerebral infarction; R25.2 - Cramp and spasm Category: Medical (3) Sacroiliac joint dysfunction of left side: Code(s): M53.3 - Sacrococcygeal disorders, not elsewhere classified Category: Medical (4) Sacroiliitis: Code(s): M46.1 - Sacroiliitis, not elsewhere classified Category: Medical (5) Chronic pain syndrome: Code(s): G89.4 - Chronic pain syndrome Category: Medical (6) Lumbar radiculopathy: Code(s): M54.16 - Radiculopathy, lumbar region Category: Medical (7) Cerebrovascular disease: Code(s): I67.9 - Cerebrovascular disease, unspecified Category: Medical (8) Sequela, post-stroke: Code(s): I69.30 - Unspecified sequelae of cerebral infarction Category: Medical (9) Trochanteric bursitis, right hip: Code(s): M70.61 - Trochanteric bursitis, right hip Category: Medical (10) Trochanteric bursitis: Code(s): M70.60 - Trochanteric bursitis, unspecified hip Category: Medical Plan: The patient was positioned sitting in the chair. Informed consent was thoroughly explained to the patient. The right trapezius muscle area was prepped with ChloraPrep . The injection of the 10 cc of bupivacaine 0.5% mixed with Kenalog 40 mg was performed into the right trapezius muscles in 3 spots related to the right trapezius muscle: Superior medial midbody lateral and inferior medial locations. The patient tolerated procedure well. The needle was withdrawn sterile Band-Aids were applied. Plan Bilateral therapeutic SI joint injection resulted in excellent pain relief lasting for 1 month. She is interested in sacroiliac joint innervation stimulation with cure on X. she needs to go for psychological evaluation with [facility]. Several times patient was informed about coming to the office to receive the psychological evaluation however she failed to come. She received today the injection into the bilateral trapezius muscles. Coding Level of Care Code Est Pt Level 3 (89843) Diagnoses Lumbar degenerative disc disease M51.36 Spasticity due to old stroke I69.398; R25.2 Sacroiliac joint dysfunction of left side M53.3 Sacroiliitis M46.1 Chronic pain syndrome G89.4 Lumbar radiculopathy M54.16 Cerebrovascular disease I67.9 Sequela, post-stroke I69.30 Trochanteric bursitis, right hip M70.61 Trochanteric bursitis M70.60
[2024-02-07 15:30] VITALS: BP 122/76; PULSE 80; RESP 16; O2SAT 96; BMI 23.3
== END 2024-02-07 15:44 | disposition home or self-care (01) ==
LOC: HO.PMC 15:20
PROVIDERS: PCP Internal Medicine; Visit Provider Anesthesiology
DX: M51.369 Other intervertebral disc degeneration, lumbar region without mention of lumbar back pain or lower extremity pain (principal); I69.398 Other sequelae of cerebral infarction; R25.2 Cramp and spasm; M53.3 Sacrococcygeal disorders, not elsewhere classified; M46.1 Sacroiliitis, not elsewhere classified; G89.4 Chronic pain syndrome; M54.16 Radiculopathy, lumbar region; I67.9 Cerebrovascular disease, unspecified; I69.30 Unspecified sequelae of cerebral infarction; M70.61 Trochanteric bursitis, right hip; M70.60 Trochanteric bursitis, unspecified hip
CPT/HCPCS: 99213

== ENCOUNTER → 2024-02-07 15:19 | Outpatient (BNVA) | payer MEDICARE, MEDICAID, SELFPAY | PROVIDERS: PCP Internal Medicine; Visit Provider Anesthesiology | DX: M51.360 Other intervertebral disc degeneration, lumbar region with discogenic back pain only (principal); M53.3 Sacrococcygeal disorders, not elsewhere classified; M46.1 Sacroiliitis, not elsewhere classified; M54.16 Radiculopathy, lumbar region; I69.398 Other sequelae of cerebral infarction; R25.2 Cramp and spasm; M70.61 Trochanteric bursitis, right hip; I67.9 Cerebrovascular disease, unspecified | CPT/HCPCS: 99212; J0665; J3301 ==

== ENCOUNTER 2024-02-28 14:43 | Outpatient (AMB) | payer MEDICARE, MEDICAID, SELFPAY ==
[2024-02-28 15:17] VITALS: BMI 23.2
--- NOTE | 2024-02-28 15:17 | A.OFFVIS_ITS ---
Vital Signs 02/28/24 15:17 Height 5 ft 6 in Weight 144 lb BMI 23.2 Intake Visit Reasons: Botox Intake Note: Patient presents for botox injection. Allergies ciprofloxacin [From Cipro] Allergy (Verified 02/28/24 15:19) unknown shellfish derived Allergy (Verified 02/28/24 15:19) unknown Medication List - Last Reconciled 03/08/24 by Carolyn Tate MD acetaminophen ER 650 mg PO Q8H PRN amlodipine 5 mg PO DAILY aspirin 81 mg PO DAILY atorvastatin 80 mg PO DAILY baclofen 10 mg PO TID carvedilol 12.5 mg PO BID cholecalciferol (vitamin D3) 25 mcg PO DAILY gabapentin 600 mg PO BID hydroxyzine HCl 10 mg PO BEDTIME hydroxyzine HCl 50 mg PO BEDTIME lorazepam mg PO losartan 50 mg PO DAILY losartan 50 mg PO DAILY omeprazole 40 mg PO DAILY onabotulinumtoxinA (Botox) to be injected to the muscles of UE for spasticity q 3 mths; paroxetine HCl 60 mg PO DAILY HPI Comments Details: 59 y/o female comes for treatment of her cervical dystonia and left UE spasticity ? Side effects including spread of toxin effect, dysphagia, breathing difficulties , bronchitis etc was discussed in detail and the patient agreed to the procedure.An informed consent was obtained ??? Botulinum toxin type A 200units -was diluted with 4 cc of normal saline at a concentration of 25 units in 0.5cc saline. Lot number [id number] expiration 06/2026 ??? Muscles injected ??? left Splenius - 25 units each ? left Trapezius 50units each Left biceps 50 units Left pronator 25 units Left Flexor Carpii radialis 25 units Left flexor carpii ulnaris 25 units ??? 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 HTN (hypertension) Cerebrovascular disease Chronic pain syndrome Sequela, post-stroke Surgical History Stented coronary artery Family History Mother Diabetes HTN (hypertension) Heart disease Social History Alcohol intake: never Patient Tobacco Use Status: Never used Tobacco Substance Use Type: Marijuana Review of Systems ENT Reports Normal hearing present Neuro Reports Normal hearing present and Reports Sensory deficit (Neuro) Physical Exam Vital Signs: BMI result Body Mass Index 23.2 Const General: cooperative and healthy appearing Orientation/consciousness: patient oriented x3 Eyes Pupils: Equal, round and reactive pupils present Neuro Other: spasmodic torticollis , tightness in the trapezius Left UE severe spasticty Left LE - mild spasticity Power 4/5 in left UE LE Fn normal on right Mild left facial paresis General: patient oriented x3 and moves all extremities Cranial nerves: Yes Equal, round and reactive pupils present, Yes Bilaterally intact EOM present, Yes Nystagmus not present, Yes Midline tongue present and Yes Normal hearing present Cognition (Neuro): normal cognition Gait exam (Neuro): Spastic hemiparesis gait present Sensory Exam: Sensory deficit (Neuro) Office Procedures Botulinum toxin Injection 31777 - Extr 1-4 each Procedure code (CPT) selection complete Assessment & Plan Assessment & Plan (1) Spasticity due to old stroke: Code(s): I69.398 - Other sequelae of cerebral infarction; R25.2 - Cramp and spasm Category: Medical (2) Spasmodic torticollis: Code(s): G24.3 - Spasmodic torticollis Category: Medical Plan she tolerated the procedure well she will call with any side effects Continue baclofen 10mg ti d refer to F[facility] Vessel Mate for further management of spasticty Coding Level of Care Code Est Pt Level 1 (90475) Diagnoses Spasticity due to old stroke I69.398; R25.2 Spasmodic torticollis G24.3 CPT Codes Botox Injection - Botox 6: 69896 - Extr 1-4 each ([id number])
== END 2024-02-28 15:49 | disposition home or self-care (01) ==
PROVIDERS: PCP Internal Medicine; Visit Provider Psychiatry & Neurology Neurology
DX: G24.3 Spasmodic torticollis (principal); I69.364 Other paralytic syndrome following cerebral infarction affecting left non-dominant side; G81.14 Spastic hemiplegia affecting left nondominant side
CPT/HCPCS: 64616; 64642

== ENCOUNTER → 2024-02-28 14:43 | Outpatient (BNVA) | payer MEDICARE, MEDICAID, SELFPAY | PROVIDERS: PCP Internal Medicine; Visit Provider Psychiatry & Neurology Neurology | DX: G24.3 Spasmodic torticollis (principal); I69.398 Other sequelae of cerebral infarction | CPT/HCPCS: 64616; 64642; 99211 ==

== ENCOUNTER 2024-03-31 11:03 | Outpatient (AMB) | payer MEDICARE, MEDICAID, SELFPAY ==
[2024-03-31 11:10] VITALS: BMI 23.2
--- NOTE | 2024-03-31 11:10 | MHC.OFFVIS ---
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 Tate. Pain is mainly in shoulder area. Has numbness and tingling in her shoulder and her left hand due to having stroke 5 yrs ago. States she received botox in neck, shoulder and arm with Dr Tate. States this helps however days after she feels sick from the injection. States she gets flu like symptoms. Allergies lisinopril Allergy (Intermediate, Verified 03/31/24 11:17) hives ciprofloxacin [From Cipro] Allergy (Verified 03/31/24 11:17) unknown shellfish derived Allergy (Verified 03/31/24 11:17) unknown Medication List - Last Reconciled 03/31/24 by Ivon Gallegos MD acetaminophen ER 650 mg PO Q8H PRN amlodipine 5 mg PO DAILY aspirin 81 mg PO DAILY atorvastatin 80 mg PO DAILY baclofen 10 mg PO TID carvedilol 12.5 mg PO BID cholecalciferol (vitamin D3) 25 mcg PO DAILY gabapentin 600 mg PO BID hydroxyzine HCl 10 mg PO BEDTIME hydroxyzine HCl 50 mg PO BEDTIME lorazepam mg PO losartan 50 mg PO DAILY losartan 50 mg PO DAILY omeprazole 40 mg PO DAILY onabotulinumtoxinA (Botox) to be injected to the muscles of UE for spasticity q 3 mths; paroxetine HCl 60 mg PO DAILY HPI Comments Details: Patient known to me, had her bilateral was working at [employer]. Performed Botox injection for her in the past. Last Botox injection with Dr. Tate was 02/28/2024, total 200 units to left splenius and muscles in upper extremity. History of stroke 5 years, with spasticity on LUE. She says that she had GI distress and flu symptoms 2 days after last injection. That was the first time she got sick after injections. She says the pain and tightness on fingers and wrist is the worse part. There is some tightness on triceps. Not too much stiffness on left lateral neck. Takes baclofen 10mg BID. No side effects. On gabapentin 600mg qhs. 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 HTN (hypertension) Cerebrovascular disease Chronic pain syndrome Sequela, post-stroke Surgical History Stented coronary artery Family History Mother Diabetes HTN (hypertension) Heart disease Social History (Updated 03/31/24 @ 11:18 by SANDEE Anglin) Alcohol intake: never Patient Tobacco Use Status: Never used Tobacco Substance Use Type: Marijuana Current occupational status: disabled 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 Patient was appropriately conversant and oriented. Slight dysarthria but improved from when I last saw her 2020. Good historian. MSK: LEFT Finger flexed in and wrist flexed, Chelsea 3 Pronation only Chelsea 1 Elbow flexion Chelsea 1 Tight on left trapezius Good cervical ROM Gait - mod I with cane, left knee extended Const General: No confusion Nutritional Appearance: average body habitus Orientation/consciousness: No confusion Limitations: ambulation with cane and other limitations (left sided weakness r/t CVA) HEENT Head: Yes normal to inspection, Yes normocephalic and Yes atraumatic Ears: hearing grossly normal bilaterally Face and sinus: Yes normal facial exam and Yes sinuses nontender Mouth: moist mucous membranes Eyes General: appearance normal, both eyes and all related structures Visual Osuna: normal visual osuna by confrontation Pupils: Equal, round and reactive pupils present EOM: EOMs intact bilaterally Neck Neck: Yes normal visual inspection, Yes full ROM and Yes no lymphadenopathy Chest Chest palpation & inspection: normal inspection of the chest Resp Effort & Inspection: normal respiratory effort, able to speak in complete sentences, no audible wheezes, no cough, respiratory effort not decreased, no respiratory distress and symmetric chest movement Cardio Jugular venous distension: no JVD Bruits: no carotid bruits Peripheral pulses: radial pulses present, posterior tibial pulses present and dorsalis pedis present GI Inspection: Yes normal to inspection and No distended Palpation (GI): Soft to palpation and nontender Back/Spine/Pelvis Cervical Spine: cervical muscular tenderness, pain with cervical ROM and No Cervical spine tenderness Thoracic/Lumbar Spine: thoracic and lumbar spine normal to inspection, Lasegue's sign negative, pain with thoraco-lumbar ROM, paraspinal muscle tenderness, thoraco-lumbar ROM limited, thoraco-lumbar spasm, No thoracic spinal tenderness, No lumbar spinal tenderness and straight leg raise positive Pelvis: no buttock ecchymosis and buttock tenderness on the left Sacroiliac joints: on the right nontender and on the left (+Halle, +Carlos's +Stinchfield's tests ) tender to palpation Skin General skin exam: no rashes or lesions noted Neuro General: No confusion Cranial nerves: Yes Equal, round and reactive pupils present and Yes Normal hearing present Cognition (Neuro): normal cognition Gait exam (Neuro): gait abnormal, Spastic hemiparesis gait present, Scissors gait present and Assistive device used Motor exam (neuro): Abnormal muscle tone present Sensory Exam: Sensory deficit (Neuro) Extrem General: Yes capillary refill normal, Yes no calf tenderness and Yes edema (left ankle and pedal non pitting edema) Psych Appearance: grossly normal Mental Status: mental status grossly normal Speech and movement: Normal speech and movement present Affect: normal affect Attitude: cooperative Thought process: Normal thought process present Thought content: Normal thought content present Insight: Good insight present (Psych) Judgement: Good judgement present (Psych) Assessment & Plan Assessment & Plan (1) Spastic hemiparesis of left nondominant side: Code(s): G81.14 - Spastic hemiplegia affecting left nondominant side Category: Medical (2) Late effects of cerebral ischemic stroke: Code(s): I69.30 - Unspecified sequelae of cerebral infarction Category: Medical (3) Spasmodic torticollis: Code(s): G24.3 - Spasmodic torticollis Category: Medical Plan Patient?s abnormal muscle tone in the setting of past stroke is interfering with functional ability, and is expected to result in joint contracture without adequate intervention. Standard medical treatments such as oral medications have failed. Surgical intervention is considered to be the last option. Therefore chemodenervation using botulinum is deemed necessary to enhance function and allow additional therapeutic modalities to be employed. After a long discussion with the patient and fiancee, we have decided to go ahead and do botulinum toxin injection into left upper extremity. A total of 250 units units of botulinum toxin is anticipated. The procedure will being scheduled after prior authorization. Muscles to be injected: Left FCR 50 units Left FDS 50 units Left FDP 50 units Left thumb OP 10-25 units Left biceps 50 units Left trapezius 25 units Next injection would be 3 months after the last, around June, 06/14/2024. Assessment and plan discussed with patient, and patient was agreeable. All questions were answered thoroughly. Ivon Gallegos MD, ASHKAN Board Certified, [place] [employer] and Rehabilitation (ABPMR) Board Certified, [place] Board of Electrodiagnostic Medicine (ABEM) Coding Level of Care Code New Pt Level 4 (40060) Complex EM visit Add On G2211 Diagnoses Spastic hemiparesis of left nondominant side G81.14 Late effects of cerebral ischemic stroke I69.30 Spasmodic torticollis G24.3
== END 2024-03-31 11:36 | disposition home or self-care (01) ==
PROVIDERS: PCP Internal Medicine; Visit Provider Physical Medicine & Rehabilitation
DX: G81.14 Spastic hemiplegia affecting left nondominant side (principal); I69.30 Unspecified sequelae of cerebral infarction; G24.3 Spasmodic torticollis
CPT/HCPCS: 99204; G2211

== ENCOUNTER → 2024-03-31 11:03 | Outpatient (BNVA) | payer MEDICARE, MEDICAID, SELFPAY | PROVIDERS: PCP Internal Medicine; Visit Provider Physical Medicine & Rehabilitation | DX: G81.14 Spastic hemiplegia affecting left nondominant side (principal); G24.3 Spasmodic torticollis; I69.30 Unspecified sequelae of cerebral infarction | CPT/HCPCS: 99202 ==

== ENCOUNTER → 2024-08-16 11:11 | Outpatient (BNV) | payer MEDICARE, MEDICAID, SELFPAY | PROVIDERS: PCP Internal Medicine; Visit Provider Physical Medicine & Rehabilitation | DX: G81.14 Spastic hemiplegia affecting left nondominant side (principal); I69.30 Unspecified sequelae of cerebral infarction | CPT/HCPCS: 64644; 95874 ==

== ENCOUNTER 2024-08-16 12:42 | Outpatient (REF) | payer MEDICARE, MEDICAID, SELFPAY ==
--- NOTE | 2024-08-16 11:11 | EMG_ITS ---
PROCEDURE PERFORMED: Botulinum toxin chemodenervation DIAGNOSIS: spastic hemiparesis ICD10: G81.14 affecting left nondominant side I69.30 INDICATION: spastic muscles Last Botox injection with Dr. Tate was 02/28/2024, total 200 units to muscles in upper extremity. History of stroke 5 years, with spasticity on LUE. Patient transfers to me as I have known her since her stroke, back when I worked in [employer]. EXAM ON DAY OF PROCEDURE: Chelsea 3 on finger flexors - flexed in but patient can extend them with her right hand Left wrist flexed, Chelsea 3 Left elbow flexed, Chelsea 2 Tends to pronate Tightness on left upper trapezius We initially planned for 250 units but since her last injection was almost 6 months ago, her exam has changed. Dose adjusted to 275 units as below. TOXIN USED: Botox PROCEDURE: The procedure was explained to the patient/caregiver, and informed consent was obtained. The patient sat on bed. Left arm was cleansed with betadine in the usual sterile manner. A 28 gauge needle electrode was used. Muscle Units per site Number of sites Units per muscle Left FCR 50 1 50 Left FDS 50 1 50 Left FDP 50 1 50 Left brachioradialis 50 1 50 Left brachialis 50 1 50 Left trapezius 25 1 25 EMG-guidance was used during the injection. A total of 275 units injected. 25 units wastage. Vial size: 100 units per vial Dilution: 100 units per 1 ml of preservative free saline The patient tolerated the procedure well without complications. The patient was observed for 30 minutes, before being discharged with post procedure instructions. CODING: CPT code: 23146 1 ext, 5 or more muscles Wastage: Guidance code: 93443 EMG guidance for chemodenervation J code: Botox J0585 [facility] code:1815-1055-52 Lot #: [id number]; [id number] [facility]
--- OUTSIDE RECORDS SUMMARY | 2024-08-16 13:45 | XMS_ITS | Clinical Summary ---
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 0 Active aspirin EC 81 MG tablet Take 81 mg by mouth daily. 0 Active carvedilol (COREG) 12.5 MG tablet Take 12.5 mg by mouth daily. 0 Active amLODIPine (NORVASC) tablet 10 mg Take 10 mg by mouth daily. 0 Active BACLOFEN PO Take 1 tablet by mouth 3 (three) times a day as needed. 0 Active PARoxetine (PAXIL) 10 MG tablet Take 10 mg by mouth every morning. 0 Active Social History Tobacco Use Types Packs/Day Years Used Date Smoking Tobacco: Former Cigarettes Q uit: 09/30/2018 Smokeless Tobacco: Never Alcohol Use Standard Drinks/Week Comments Not Currently 0 (1 standard drink = 0.6 oz pur e alcohol) Sex and Gender Information Value Date Recorded Sex Assigned at Not on file Gender Identity Not on file Sexual Orientation Not on file Job Start Date Occupation Industry Not on file Not on file Not on file Last Filed Vital Signs Vital Sign Reading Time Taken Comments Blood Pressure - - Pulse 73 10/02/2020 12:08 PM EDT Temperature 36.3 ??C (97.3 ??F) 10/02/2020 12:08 PM E DT Respiratory Rate - - Oxygen Saturation 100% 10/02/2020 12:08 PM EDT Inhaled Oxygen Concentration - - Weight 73.9 kg (163 lb) 09/30/2020 2:26 PM EDT Height 167.6 cm (5' 6 ) 09/30/2020 2:26 PM EDT Body Mass Index 26.31 09/30/2020 2:26 PM EDT Plan of Treatment Health Maintenance Due Date Last Done Comments Hepatitis C Screening 1965 COVID-19 Vaccine (#1) 1965 Depression Screening 1975 Preventative Health Evaluation 1981 Cervical Cancer Screening (P ap Smear) 01/16/1984 Colon Cancer Screening (Colonoscopy) 01/16/2008 Breast Cancer Screening (Mammogram) 2013 Shingrix-Zoster Vaccine (1 of 2) 2013 Influenza Vaccine (#1) 2023 02/05/2020 DTap / Tdap / Td (2 - Td or Tdap) 04/30/2025 016 RSV Adult > 60+ Yrs or Pregn ant (1 - 1-dose 75+ series) 2038 Hepatitis B Vaccines Aged Out No long er eligible based on patient's age to complete this topic Pneumococcal Vaccine Aged Out No long er eligible based on patient's age to complete this topic RSV Ped < 20 months Aged Out No longe r eligible based on patient's age to complete this topic Jesi Hayden I Personal/Family Self [address] [id number]
--- OUTSIDE RECORDS SUMMARY | 2024-08-16 13:45 | XMS_ITS | Clinical Summary ---
Author Organization [facility] Address [address] [place] [address] Phone Care Team Providers Care Supplier Quality Manager Name Role Phone Marc Vazquez MD Primary Care Provider Allergies Active Allergy Reactions Criticality Noted Date Comments Ciprofloxacin 01/21/2015 Other Reaction(s): Flushing, feeling of warmth Lisinopril Cough 12/14/2014 Shellfish Containing Products Itching,Swelling 12/23/2011 Medications acetaminophen (TYLENOL 8 HOUR) 650 mg 8 hr tablet Take 1 Tablet by mouth every 8 hours as needed for Pain or Fever. 3 Active alpha lipoic acid 300 mg capsule Alpha-Lipoic Acid 300 MG Tab Take by mouth. Active aspirin 81 mg EC tablet Take 1 Tablet by mouth. 9 Active lidocaine (LIDODERM) 5 % patch APPLY 1 PATCH TOPICALLY EVERY 24 HOURS NEEDED PAIN, FOR NO MORE THAN 12 HOURS IN ANY 24 HOUR PERIOD, AND REMOVE PATCH AFTER 12 HOURS 4 Active LORazepam (ATIVAN) 0.5 mg tablet Take 1 Tablet by mouth daily as needed for Anxiety (panic attacks). 3 Active ONETOUCH ULTRASOFT LANCETS MISC To check blood sugar once a day 4 Active FA/mv,Ca,iron,m in/lycopene/lut (MULTIVITAL ORAL) Take by mouth. Activ e OneTouch Ultra Test test strip To check blood sugar once a day 4 02/25/20 25 Active blood-glucose meter kit To check blood sugar once a day 4 Active PARoxetine (PAXIL) 30 mg tablet TAKE TWO TABLETS BY MOUTH EVERY MORNING 180 tablet 1 4 Active gabapentin (NEURONTIN) 300 mg capsule TAKE ONE CAPSULE BY MOUTH EVERY DAY IN THE MORNING TAKE ONE CAPSULE AFTER LUNCH AND TAKE 2 CAPSULES BEFORE BEDTIME 120 capsule 4 4 Active amLODIPine (NORVASC) 5 mg tablet TAKE ONE TABLET BY MOUTH EVERY DAY 90 tablet 1 4 Active omeprazole (PriLOSEC) [address] capsule TAKE TWO CAPSULES BY MOUTH EVERY DAY 180 capsule 1 4 Active hydrOXYzine HCL (ATARAX) 50 mg tablet TAKE ONE TABLET BY MOUTH EVERY DAY AT BEDTIME 90 tablet 1 4 Active losartan (COZAAR) 50 mg tablet TAKE ONE TABLET BY MOUTH EVERY DAY 90 tablet 1 4 Active carvediloL (COREG) 12.5 mg tablet Take 1 tablet (12.5 mg total) by mouth 2 (two) times a day with meals. 180 tablet 1 5 Active triamcinolone (KENALOG) 0.1 % cream Apply 1 Applicator topically 2 times daily. 30 g 5 Active baclofen (LIORESAL) 10 mg tablet TAKE ONE TABLET BY MOUTH THREE TIMES A DAY NEEDED FOR MUSCLE SPASM 90 tablet 4 5 Active metFORMIN XR (GLUCOPHAGE-XR) 500 mg 24 hr tablet TAKE ONE TABLET BY MOUTH EVERY DAY WITH BREAKFAST 90 tablet 1 5 Active atorvastatin (LIPITOR) 40 mg tablet Take 1 tablet (40 mg total) by mouth 1 (one) time each day. 90 tablet 1 5 Active Active Problems Problem Noted Date Diagnosed Date Contracture, left hand 11/25/2023 Occipital headache 07/23/2023 Prediabetes 07/23/2023 Lumbar degenerative disc disease 11/17/2021 Overview (02/15/2024): 10/29/2021, [facility], referral placed to acupuncture, scheduled for left therapeutic SIJ injection Hematuria 08/14/2021 Overview (02/15/2024): [facility] Coronary artery disease invo lving jamul coronary artery of jamul heart without angina pectoris 07/09/2021 Mixed hyperlipidemia 07/09/2021 Peripheral vascular disease ([facility] V24) 2021 Overview (02/15/2024): [facility] Primary hypertension 07/09/2021 Chronic back pain 04/04/2021 Alkaline phosphatase elevation 02/15/2021 Pelvic pain 10/31/2020 Overview (02/15/2024): Last Assessment & Plan: I explaiend to Jesi that the cause of her pain is unclear, but given the frequency and description, it sounds most likely GI related. In any case, I recommended we perform a pelvic US to rule out Soil Tester etiology and if normal, she should return to GI, particularly with her history of polyp requiring follow up in one year. She voiced understanding and agreed. We also sent infectious evaluation today, but given she is low risk, it is likely to be negative. We will discuss results when available. Insomnia 10/18/2020 Fatty liver 10/17/2020 Aortic insufficiency 08/19/2020 Colon polyp 07/25/2020 Spastic hemiparesis of left nondominant side as late effect of cerebral infarction ([facility] V24, [facility] V28) 12/14/2019 Overview (02/15/2024): Botox injections were helpful; [facility] Hemiparesis following cerebr ovascular accident (CVA) (CMS/HCC V24, CMS/[facility] V28) 06/09/2019 Overview (02/15/2024): 06/01 Ischemic cardiomyopathy 03/08/2019 Overview (02/15/2024): 01/28 EF 30-35%; resolved on echo 12/30 History of ND (myocardial infarction) 02/13/2019 Overview (02/15/2024): 01/28; VEL x2, Balloon Angioplasty to D2 lesion Vertigo 02/28/2015 Abdominal pain 04/03/2013 Overview (02/15/2024): RLQ; felt to be MSK, had injection from pain mgmt at [facility] 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 Stable on CT 10/30. Dr Calle 2020 IMPRESSION: Allowing for differences in slice selection and cursor placement, there has been no significant change in the 2.8 x 2.8 x 3.0 cm heterogeneous mass of the left kidney since 2012. Since this mass has been stable for almost 8 years, this is considered to be benign. Anxiety and depression 12/23/2011 Pain in scapula 12/23/2011 Overview (02/15/2024): Left; seen at [facility] for this Encounters Date Type Department Care Team Description 08/10/2024 1:00 PM EDT Treatment [address] [phone] Kaela Cole, PT Ataxia (Primary Dx) 08/02/2024 12:45 PM EDT Treatment [address] [phone] Kaela Cole, PT Ataxia (Primary Dx) 07/31/2024 1:15 PM EDT Treatment [facility] [address] [phone] Keith Redmond, DISTRICT WILDLIFE MANAGER Ataxia (Primary Dx) 07/26/2024 1:15 PM EDT Treatment [facility] [address] [phone] Keith Redmond, DISTRICT WILDLIFE MANAGER Ataxia (Primary Dx) 07/24/2024 1:15 PM EDT Treatment [facility] [address] [phone] Bourbeau, Keith, DISTRICT WILDLIFE MANAGER Ataxia (Primary Dx) 07/13/2024 2:00 PM EDT Treatment [facility] [address] [phone] Kaela Cole, PT Ataxia (Primary Dx) 07/11/2024 2:30 PM EDT Treatment [facility] [address] [phone] Keith Redmond, DISTRICT WILDLIFE MANAGER Ataxia (Primary Dx) 07/04/2024 1:30 PM EDT Treatment [facility] [address] [phone] Keith Redmond, DISTRICT WILDLIFE MANAGER Ataxia (Primary Dx) 06/26/2024 2:00 PM EDT Evaluation [facility] [address] [phone] Kaela Cole, PT Ataxia (Primary Dx) 06/26/2024 1:15 PM EDT Evaluation [facility] Occupational Therapy [address] [place] [phone] Charbel Odonnell, OT Contracture, left hand (Primary Dx); Spastic hemiparesis of left nondominant side as late effect of cerebral infarction ([facility] V24, CMS/HCC V28) 06/20/2024 Telephone Adult Medicine [address] [phone] Marc Vazquez MD Fitting for DME 06/19/2024 Telephone Adult Medicine [address] [phone] Jodie Bravo MA 05/31/2024 Telephone [facility] Occupational Therapy [address] [place] [phone] Gena Quiroga OT 05/26/2024 Telephone Adult Medicine [address] [phone] Soila Kincaid LPN Fitting for DME from Last 3 Months Immunizations Name Administration Dates Next Due Influenza Quadravalent, MDCK , 0.5ml, preservative free (Flucelvax) 6mo and older 02/04/2021,02/05/2020 PPD Test 04/30/2015 FMP Products SARS-CoV-2 COVID-19, mRNA, LNP-S, preservative free 08/24/2020 Tdap Tetanus diptheria acell ular pertussis (Boostrix; Adacel) 7yo and older 04/30/2015 Surgical History Surgery Date Site/Laterality Comments TUBAL LIGATION PROCEDURE: HISTORICAL TUBAL LIGATION TONSILLECTOMY PROCEDURE: HISTORICAL TONSILLECTOMY OTHER SURGICAL HISTORY 09/13/2012 PROCEDURE: HISTORICAL D&C; COMMENT: and endometrial polypectomy COLONOSCOPY W/ BIOPSIES 02/13/2013 PROCEDURE: [place] COLONOSCOPY W/BIOPSY SINGLE/MULTIPLE; COMMENT: 6 mm TC polyp: tubular adenoma. OTHER SURGICAL HISTORY PROCEDURE: ---- OTHER ----; COMMENT: liposuction; fat injected into buttocks COLONOSCOPY 07/25/2020 PROCEDURE: HISTORICAL COLONOSCOPY; COMMENT: 7 mm polyp; inadequate/poor bowel prep; repeat within 12 months. Pathology = tubular adenoma. BREAST BIOPSY 2009 Right PROCEDURE: BX BREAST; PERC NEEDLE CORE W/IMAG GUID; COMMENT: pre cancerous cells COLONOSCOPY 02/19/2022 PROCEDURE: HISTORICAL COLONOSCOPY; COMMENT: tubular adenomas Medical History Medical History Date Comments CVA (cerebral vascular accid ent) (CMS/HCC V24, CMS/HCC V28) 2019 DX:CVA (cerebral vascular a ccident) (HCC) Fatty liver DX:Fatty liver Colon polyps DX:Colon polyps Family History Medical History Relation Name Comments Other cancer Aunt ?tumor in eye Diabetes Brother Depression Daughter Coronary artery disease Mother in h er 60's Depression Mother Hypertension Mother Breast cancer Sister 42 Multiple sclerosis Son Relation Name Status Comments Aunt Brother Daughter Mother Sister 42 Alive Son Social History Tobacco Use Types Packs/Day Years Used Date Smoking Tobacco: Former Cigarettes 0.3 8.8 0 07/13/2010 - 05/13/2019 Smokeless Tobacco: Never Tobacco Cessation:Counseling Given: Not Answered Alcohol Use Standard Drinks/Week Comments Yes 0 (1 standard drink = 0.6 oz pur e alcohol) Comments No Sex and Gender Information Value Date Recorded Sex Assigned at Not on file Legal Sex Female 3:54 PM EST Gender Identity Not on file Sexual Orientation Not on file Obstetrics History Last Filed Vital Signs Vital Sign Reading Time Taken Comments Blood Pressure 124/78 05/08/2024 2:04 PM EST Pulse 69 05/08/2024 2:04 PM EST Temperature 36.6 ??C (97.9 ??F) 05/08/2024 2:04 PM ES T Respiratory Rate 16 05/08/2024 2:04 PM EST Oxygen Saturation - - Inhaled Oxygen Concentration - - Weight 66.7 kg (147 lb) 05/08/2024 2:04 PM EST Height 167.6 cm (5' 6 ) 05/08/2024 2:04 PM EST Body Mass Index 23.73 05/08/2024 2:04 PM EST Plan of Treatment Upcoming Encounters Date Type Department Care Team (Late st Contact Info) Description 08/22/2024 1:00 PM EDT Treatment [facility] [address] [phone] Kaela Cole, PT 08/22/2024 1:30 PM EDT Treatment [facility] Occupational Therapy [address] [phone] Charbel Odonnell, OT 08/25/2024 12:00 PM EDT Treatment [facility] [address] [phone] Keith Redmond, DISTRICT WILDLIFE MANAGER 08/28/2024 1:00 PM EDT Treatment [facility] [address] [phone] Kaela Cole, PT 08/30/2024 2:00 PM EDT Treatment [facility] [address] [phone] Kaela Cole, PT Health Maintenance Due Date Last Done Comments Pneumococcal Vaccine: 50+ Years (1 of 2 - PCV) 1982 Pneumococcal Vaccine: Pediatrics (0 to 5 Years) and At-Risk Patients (6 to 64 Years) (1 of 2 - PCV) 1982 Zoster Vaccines (1 of 2) 2013 Medicare Annual Wellness Visit 03/21/2022 Social Influencers of Health Screening 03/21/2022 Breast Cancer Screening 10/28/2023 10/27/2021 COVID-19 Vaccine (4 - 2023-2 5 season) 2023 03/12/2021, 08/24/2020, 07/25/2020 Hypertension/CHF/CAD Annual BMP Blood Test 08/31/2024 09/01/2023, 09/01/2023 Depression Screening 11/24/2024 11/25/2023 Influenza Vaccine (Season Ended) 2024 02/04/2021, 02/05/2020 DTaP,Tdap,and Td Vaccines (2 - Td or Tdap) 04/30/2025 04/30/2015 Cervical Cancer Screening: HPV 09/25/2026 09/25/2021 Colorectal Cancer Screening: Colonoscopy 02/19/2027 02/19/2022 Cholesterol Screening (Lipid Panel) 08/31/2028 09/01/2023, 09/01/2023 RSV Immunization Adult Patients (1 - 1-dose 75+ series) 2038 HIV Screening Completed 04/03/2013 Hepatitis C Screening Completed 04/03/2013 HIB Vaccines Aged Out No longer eligi ble based on patient's age to complete this topic HPV Vaccines Aged Out No longer eligi ble based on patient's age to complete this topic Hepatitis A Vaccines Aged Out No long er eligible based on patient's age to complete this topic Hepatitis B Vaccines Aged Out No long er eligible based on patient's age to complete this topic IPV Vaccines Aged Out No longer eligi ble based on patient's age to complete this topic MMR Vaccines Aged Out No longer eligi ble based on patient's age to complete this topic Meningococcal ACWY Vaccine Aged Out N o longer eligible based on patient's age to complete this topic Meningococcal B Vaccine Aged Out No l onger eligible based on patient's age to complete this topic RSV Immunization Patients Under 20 months Aged Out No longer eligible b ased on patient's age to complete this topic Varicella Vaccines Aged Out No longer eligible based on patient's age to complete this topic Goals Goal Patient Goal Type Associated Problems Recent Progress Patient-Stated? Author Pt goal General Yes Gena Quiroga, OT Note: To be able to open her hand, less pain OT LTGs General Yes KimberGena Molly, OT Note: 1- Participate in splint fitting to maximize PROM/prevent contracture 2- Pt will be I with HEP to prevent contracture 3- Pt will demo at least 20 more wrist flex and ext passively Procedures Procedure Name Priority Date/Time Associated Diagnosis Comments DEPRESSION SCREENING Routine 11/25/2023 ANNUAL BMP BLOOD TEST Routine 09/01/2023 LIPID PANEL Routine 09/01/2023 COLONOSCOPY Routine 02/19/2022 SCREENING MAMMOGRAPHY BI 2-VIEW BREAST INC CAD Routine 10/27/2021 4:43 PM EDT Encounter for screening mammogram for malignant neoplasm of breast HPV Routine 09/25/2021 HEPATITIS C SCREENING Routine 04/03/2013 HIV SCREENING Routine 04/03/2013 from Last 3 Months or Most Recently Relevant to Health Maintenance Results * Depression Screening (11/25/2023) Pathologist [facility] Depression Screening Abstracted Historical Provider HEALTH MAINTENANCE Final Result * Annual BMP Blood Test (09/01/2023) Pathologist [facility] Annual BMP Blood Test Abstracted Historical Provider HEALTH MAINTENANCE Final Result * (ABNORMAL) Lipid panel (09/01/2023) [facility] LDL/HDL Ratio 4 0 - 4 Triglycerides 149 0 - 150 mg/dL Cholesterol 137 0 - 200 mg/dL HDL 37(A) >=40 mg/dL LDL Cholesterol 71 0 - 100 mg/dL Blood Venous blood specimen / Unknown Historical Provider LAB BLOOD ORDERABLES Tere l Result * Colonoscopy (02/19/2022) Colonoscopy Abstracted, no interpretation Anatomical Region Laterality Modality Other Historical Provider HEALTH MAINTENANCE Final Result * SCREENING MAMMOGRAPHY BI 2-VIEW BREAST INC CAD (10/27/2021 4:43 PM EDT) Anatomical Region Laterality Modality Radiographic Vianey ging 02/04/2021 1:37 PM EDT Narrative 10/28/2021 5:17 PM EDT This is a summary report. The complete report is available in the patient's medical record. If you cannot access the medical record, please contact the sending organization for a detailed fax or copy. Full field digital screening 2D and tomosynthesis mammography, reviewed with CAD and compared to previous. ??The breasts are composed of fatty and fibroglandular tissue. ??No suspicious mass, architectural distortion or suspicious calcifications are identified. IMPRESSION: : No mammographic evidence of malignancy. BIRADS 1-Negative; N. 5 year breast cancer risk assessment 3.2 % Lifetime breast cancer risk assessment 17.2 % Breast cancer risk category Moderate (15% - 20%) Procedure Note Glo Cantu MD - 03/31/2022 This is a summary report. The complete report is available in thepatient's medical record. If you cannot access the medical record, pleasecontact the sending organization for a detailed fax or copy. Full field digital screening 2D and tomosynthesis mammography, reviewedwith CAD and compared to previous. The breasts are composed of fatty andfibroglandular tissue. No suspicious mass, architectural distortion orsuspicious calcifications are identified. IMPRESSION: : No mammographic evidence of malignancy. BIRADS 1-Negative; N. 5 year breast cancer risk assessment 3.2 % Lifetime breast cancer risk assessment 17.2 % Breast cancer risk category Moderate (15% - 20%) Result [facility] Ana Paula Alfonso CNM IMG XR PROCEDURES Final Resul t * Cervical Cancer Screening: HPV (09/25/2021) Cervical Cancer Screening: HPV Abstracted, Negative Result [facility] Historical Provider HEALTH MAINTENANCE Final Result * HIV Screening (04/03/2013) HIV Screening Abstracted Historical Provider HEALTH MAINTENANCE Final Result * Hepatitis C Screening (04/03/2013) Hepatitis C Screening Abstracted us Historical Provider HEALTH MAINTENANCE Final Result from Last 3 Months or Most Recently Relevant to Health Maintenance Insurance MEDICAID - [place] [employer] MEDICARE Advance Directives Documents on File Type Date Recorded Patient Acute Specialist Expl anation Health Care Decision (hx) 06/08/2019 AD BHATTI DIRECTIVE Health Care Decision (hx) 06/08/2019 AD BHATTI DIRECTIVE Health Care Decision (hx) 06/08/2019 AD BHATTI DIRECTIVE Health Care Decision (hx) 06/08/2019 AD BHATTI DIRECTIVE Health Care Decision (hx) 06/08/2019 AD BHATTI DIRECTIVE Health Care Decision (hx) 06/08/2019 AD BHATTI DIRECTIVE Health Care Decision (hx) 06/08/2019 AD BHATTI DIRECTIVE Health Care Decision (hx) 06/08/2019 AD BHATTI DIRECTIVE Health Care Decision (hx) 06/08/2019 AD BHATTI DIRECTIVE Health Care Decision (hx) 06/08/2019 AD BHATTI DIRECTIVE Health Care Decision (hx) 06/08/2019 AD BHATTI DIRECTIVE Health Care Decision (hx) 06/08/2019 AD BHATTI DIRECTIVE Health Care Decision (hx) 06/08/2019 AD BHATTI DIRECTIVE Health Care Decision (hx) 06/08/2019 AD BHATTI DIRECTIVE Health Care Decision (hx) 06/08/2019 AD BHATTI DIRECTIVE Health Care Decision (hx) 06/08/2019 AD BHATTI DIRECTIVE Health Care Decision (hx) 06/08/2019 AD BHATTI DIRECTIVE Health Care Decision (hx) 06/08/2019 AD BHATTI DIRECTIVE Health Care Decision (hx) 06/08/2019 AD BHATTI DIRECTIVE Health Care Decision (hx) 06/08/2019 AD BHATTI DIRECTIVE Health Care Decision (hx) 06/08/2019 AD BHATTI DIRECTIVE Health Care Decision (hx) 06/08/2019 AD BHATTI DIRECTIVE Health Care Decision (hx) 06/08/2019 AD BHATTI DIRECTIVE Health Care Decision (hx) 06/08/2019 AD BHATTI DIRECTIVE Health Care Decision (hx) 06/08/2019 AD BHATTI DIRECTIVE Health Care Decision (hx) 06/08/2019 AD BHATTI DIRECTIVE Health Care Decision (hx) 06/08/2019 AD BHATTI DIRECTIVE Health Care Decision (hx) 06/08/2019 AD BHATTI DIRECTIVE Health Care Decision (hx) 06/08/2019 AD BHATTI DIRECTIVE Health Care Decision (hx) 06/08/2019 AD BHATTI DIRECTIVE Health Care Decision (hx) 06/08/2019 AD BHATTI DIRECTIVE Care Teams Supplier Quality Manager Relationship Specialty Start Date End Date Marc Vazquez MD [address] [place] [address] PCP - General Internal Medicine 10/16/21
== END 2024-08-16 12:43 | disposition home or self-care (01) ==
LOC: HO.NEURO 12:42
PROVIDERS: PCP Internal Medicine; Visit Provider Physical Medicine & Rehabilitation
DX: G81.14 Spastic hemiplegia affecting left nondominant side (principal); I69.30 Unspecified sequelae of cerebral infarction
CPT/HCPCS: 64644; 95874; J0585

== ENCOUNTER → 2024-09-11 10:47 | Outpatient (BNVA) | payer MEDICARE, MEDICAID, SELFPAY | PROVIDERS: PCP Internal Medicine; Visit Provider Physical Medicine & Rehabilitation | DX: Z13.89 Encounter for screening for other disorder (principal) ==

== ENCOUNTER 2024-10-12 11:49 | Outpatient (AMB) | payer MEDICARE, MEDICAID, SELFPAY ==
--- NOTE | 2024-10-12 11:52 | A.OFFVIS_ITS ---
Intake Visit Reasons: OV-Botox injection follow up RB Intake Note: Jesi is a 59 year old female who presents today as a follow up of her Botox injection. Patient states that since last injection she did have mild relief. She states that since her stroke her B/L shoulder pain has increased and feels like her muscles are torn/tearing sensation . Allergies lisinopril Allergy (Intermediate, Verified 10/12/24 11:58) hives ciprofloxacin (From Cipro) Allergy (Verified 10/12/24 11:58) unknown shellfish derived Allergy (Verified 10/12/24 11:58) unknown Medication List - Last Reconciled 10/12/24 by Ivon Gallegos MD acetaminophen ER 650 mg PO Q8H PRN amlodipine 5 mg PO DAILY aspirin 81 mg PO DAILY atorvastatin 80 mg PO DAILY baclofen 10 mg PO TID carvedilol 12.5 mg PO BID cholecalciferol (vitamin D3) 25 mcg PO DAILY gabapentin 600 mg PO BID hydroxyzine HCl 10 mg PO BEDTIME hydroxyzine HCl 50 mg PO BEDTIME lorazepam mg PO losartan 50 mg PO DAILY losartan 50 mg PO DAILY omeprazole 40 mg PO DAILY onabotulinumtoxinA (Botox) to be injected to the muscles of UE for spasticity q 3 mths; paroxetine HCl 60 mg PO DAILY HPI Comments Details: Last Botox injection with Dr. Tate was 02/28/2024, total 200 units to left splenius and muscles in upper extremity. History of stroke 5 years, with spasticity on LUE. ICD10: G81.14 affecting left nondominant side I69.30 Injection by ks 08/16/2024. Patient says that since injection, she has not had any shaking or tightness or woodenboard feeling. Her therapist has been pleased that they have been able to extend fingers and elbows, even wrist, much better. Denies side effects or complications. She does have a knot on right rhomboids that is been bothering her a lot. [facility] Medical History (Updated 10/12/24 @ 12:49 by Ivon Gallegos MD) Late effects of cerebral ischemic stroke Spastic hemiparesis of left nondominant side Spasmodic torticollis Spasticity due to old stroke HTN (hypertension) Cerebrovascular disease Chronic pain syndrome Sequela, post-stroke Surgical History Stented coronary artery Family History Mother Diabetes HTN (hypertension) Heart disease Social History (Updated 03/31/24 @ 11:18 by SANDEE Anglin) Alcohol intake: never Patient Tobacco Use Status: Never used Tobacco Substance Use Type: Marijuana Current occupational status: disabled 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 Now able to extend digits 2 -5, passively, fully. Chelsea 1. Still flex wrist low,-30 degrees from full extension. Forearm now fully pronated. Less/no tightness on left upper trapezius. She does have trigger point on right rhomboids just below the scapula. Office Procedures Therapeutic Injection Therapeutic Injection Details: Trigger point injection, right rhomboids just below the scapula. Consent obtained. Trigger points palpated on right rhomboids just below the scapula. Needling performed with gauge 27 needle, subsequently injecting 1 ml of 2% Lidocaine., total of 1 mL. Patient tolerated procedure well. Post-injection instructions given. [id number] Point Injection 1 or 2 sites All charges added?: Procedure code (CPT) selection complete Assessment & Plan Assessment & Plan (1) Spastic hemiparesis of left nondominant side: Code(s): G81.14 - Spastic hemiplegia affecting left nondominant side Category: Medical (2) Late effects of cerebral ischemic stroke: Code(s): I69.30 - Unspecified sequelae of cerebral infarction Category: Medical (3) Spasmodic torticollis: Code(s): G24.3 - Spasmodic torticollis Category: Medical (4) Myofascial pain: Code(s): M79.18 - Myalgia, other site Category: Medical Plan 1. Very good improvement since the last injection 2 months ago. We will just do a few adjustments to really improve the wrist flexion. Plan to resume PT after next injection. Patient happy with her improvement. Total of 400 units and dissipated. Muscles to be injected: Add left PT 50 units Left FCR 50 units Left FDS 50 units Left FDP 50 units Left brachioradialis 50 units Left brachialis increase to 100 units Left trapezius 25 units - possibly increase to 50 units Next injection would be 3 months after the last, around 1st week of November. 2. Trigger point injection, unrelated to hemiparesis, on right rhomboids performed. Patient to inform our clinic if it helped. If it did, then we can schedule her for series of more trigger point injections. May continue with massage and topical. Assessment and plan discussed with patient, and patient was agreeable. All questions were answered thoroughly. Ivon Gallegos MD, ASHKAN Board Certified, [place] [employer] and [employer] (ABPMR) Board Certified, [place] Board [employer] Electrodiagnostic Medicine (ABEM) Orders: Orders AMB Trigger Point Injection Today M79.18 - Myalgia, other site Coding Level of Care Code Est Pt Level 4 (36777) Complex EM visit Add On G2211 Diagnoses Spastic hemiparesis of left nondominant side G81.14 Late effects of cerebral ischemic stroke I69.30 Spasmodic torticollis G24.3 Myofascial pain M79.18 CPT Codes Therapeutic Injection - Ther Injection 1: [id number]-[id number] Point Injection 1 or 2 sites ([id number])
--- OUTSIDE RECORDS SUMMARY | 2024-10-12 12:27 | XMS_ITS | Clinical Summary ---
[facility] Organization [facility] Address [address] [place] [address] Care Team Providers Care Computer Forensics Investigator Name Role Phone Unavailable Primary Care Provider [...] 73 10/02/2020 12:08 PM EDT Temperature 36.3 C (97.3 F) 10/02/2020 12:08 PM EDT Respiratory Rate - - Oxygen Saturation 100% [...] Vaccine (1 of 2) 2013 Influenza Vaccine (Season Ended) 2024 02/05/20 20 DTap / Tdap / Td (2 - [...]
--- OUTSIDE RECORDS SUMMARY | 2024-10-12 12:27 | XMS_ITS | Clinical Summary ---
Author Organization [facility] Address [address] [place] [address] Phone Care Team Providers Care Appliance Mechanic Name Role Phone Marc Vazquez MD Primary Care Provider Allergies Active Allergy Reactions Criticality Noted Date Comments Ciprofloxacin 01/21/2015 Other Reaction(s): Flushing, feeling of warmth Lisinopril Cough 12/14/2014 Shellfish Containing Products Itching,Swelling 12/23/2011 Medications acetaminophen (TYLENOL 8 HOUR) 650 mg 8 hr tablet Take 1 Tablet by mouth every 8 hours as needed for Pain or Fever. 10/28/19 23 Active alpha lipoic acid 300 mg capsule Alpha-Lipoic Acid 300 MG Tab Take by mouth. Active aspirin 81 mg EC tablet Take 1 Tablet by mouth. 02/10/20 19 Active lidocaine (LIDODERM) 5 % patch APPLY 1 PATCH TOPICALLY EVERY 24 HOURS NEEDED PAIN, FOR NO MORE THAN 12 HOURS IN ANY 24 HOUR PERIOD, AND REMOVE PATCH AFTER 12 HOURS 11/25/19 24 Active LORazepam (ATIVAN) 0.5 mg tablet Take 1 Tablet by mouth daily as needed for Anxiety (panic attacks). 09/19/19 23 Active ONETOUCH ULTRASOFT LANCETS MISC To check blood sugar once a day 01/31/20 24 Active FA/mv,Ca,iron, min/lycopene/l ut (MULTIVITAL ORAL) Take by mouth. Activ e OneTouch Ultra Test test strip To check blood sugar once a day 01/31/20 24 025 Active blood-glucose meter kit To check blood sugar once a day 01/31/20 24 Active amLODIPine (NORVASC) 5 mg tablet TAKE ONE TABLET BY MOUTH EVERY DAY 90 tablet 1 03/13/20 24 Active losartan (COZAAR) 50 mg tablet TAKE ONE TABLET BY MOUTH EVERY DAY 90 tablet 1 04/10/20 24 Active carvediloL (COREG) 12.5 mg tablet Take 1 tablet (12.5 mg total) by mouth 2 (two) times a day with meals. 180 tablet 1 05/03/19 25 Active triamcinolone (KENALOG) 0.1 % cream Apply 1 Applicator topically 2 times daily. 30 g 05/08/19 25 Active baclofen (LIORESAL) 10 mg tablet TAKE ONE TABLET BY MOUTH THREE TIMES A DAY NEEDED FOR MUSCLE SPASM 90 tablet 4 05/30/19 25 Active atorvastatin (LIPITOR) 40 mg tablet Take 1 tablet (40 mg total) by mouth 1 (one) time each day. 90 tablet 1 05/30/19 25 Active PARoxetine (PAXIL) 30 mg tablet TAKE TWO TABLETS BY MOUTH EVERY MORNING 180 tablet 08/29/19 25 Active omeprazole (PriLOSEC) [address] capsule TAKE TWO CAPSULES BY MOUTH EVERY DAY 180 capsule 08/29/19 25 Active hydrOXYzine HCL (ATARAX) 50 mg tablet TAKE ONE TABLET BY MOUTH EVERY DAY AT BEDTIME 90 tablet 08/29/19 25 Active metFORMIN XR (GLUCOPHAGE-XR ) 500 mg 24 hr tablet TAKE ONE TABLET BY MOUTH EVERY DAY WITH BREAKFAST 30 tablet 09/09/19 25 Active gabapentin (NEURONTIN) 300 mg capsule TAKE ONE CAPSULE BY MOUTH EVERY MORNING, TAKE ONE CAPSULE EVERY AFTERNOON AFTER LUNCH, AND TAKE TWO CAPSULES DAILY AT BEDTIME 60 capsule 09/20/19 25 Active gabapentin (NEURONTIN) 300 mg capsule TAKE ONE CAPSULE BY MOUTH EVERY DAY IN THE MORNING ONE CAPSULE AFTER LUNCH AND TAKE 2 CAPSULES BEFORE BEDTIME 120 capsule 08/22/19 25 025 Discontinued Active Problems Problem Noted Date Diagnosed Date Contracture, left hand 11/25/2023 Occipital headache 07/23/2023 Prediabetes 07/23/2023 Lumbar degenerative disc disease 11/17/2021 Overview (02/15/2024): 10/29/2021, [facility] pain management center, referral placed to acupuncture, scheduled for left therapeutic SIJ injection Hematuria 08/14/2021 Overview (02/15/2024): [facility] Coronary artery disease invo lving [place] coronary artery of [place] heart without angina pectoris 07/09/2021 Mixed hyperlipidemia 07/09/2021 Peripheral vascular disease (CMS/HCC V24) 2021 Overview (02/15/2024): [facility] Primary hypertension 07/09/2021 Chronic back pain 04/04/2021 Alkaline phosphatase elevation 02/15/2021 Pelvic pain 10/31/2020 Overview (02/15/2024): Last Assessment & Plan: I explaiend to Jesi that the cause of her pain is unclear, but given the frequency and description, it sounds most likely GI related. In any case, I recommended we perform a pelvic US to rule out Administrative Assistant Office Manager etiology and if normal, she should return [...] side as late effect of cerebral infarction (CMS/HCC V24, CMS/HCC V28) 12/14/2019 Overview (02/15/2024): Botox injections were helpful; [facility] Hemiparesis following cerebr ovascular accident (CVA) (CMS/HCC V24, CMS/HCC V28) 06/09/2019 Overview (02/15/2024): 06/01 Ischemic cardiomyopathy 03/08/2019 Overview (02/15/2024): 01/28 EF 30-35%; resolved on echo 12/30 History of TX (myocardial infarction) 02/13/2019 Overview (02/15/2024): 01/28; VEL x2, Balloon Angioplasty to D2 lesion Vertigo 02/28/2015 Abdominal pain 04/03/2013 Overview (02/15/2024): RLQ; felt to be MSK, had injection from pain mgmt at [facility] 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 Overview (02/15/2024): [...] 12/23/2011 Overview (02/15/2024): Left; seen at pain [facility] for this Encounters Date Type Department Care Team Description 10/05/2024 Telephone Adult Medicine [address] [phone] Marc Vazquez MD Breathing Problem 09/27/2024 1:30 PM EDT Treatment [facility] Occupational Therapy [address] [phone] Charbel Odonnell, OT Spastic hemiparesis of left nondominant side as late effect of cerebral infarction (CMS/HCC V24, CMS/HCC V28) (Primary Dx); Contracture, left hand 09/27/2024 12:45 PM EDT Treatment [facility] [address] [phone] Kaela Cole, PT Ataxia (Primary Dx) 09/25/2024 2:30 PM EDT Treatment [facility] [address] [phone] Bourbeau, Keith, SPEED BELT SANDER TENDER Ataxia (Primary Dx) 09/25/2024 1:45 PM EDT Treatment [address] [phone] Charbel Odonnell, OT Spastic hemiparesis of left nondominant side as late effect of cerebral infarction (CMS/HCC V24, CMS/HCC V28) (Primary Dx); Contracture, left hand 09/21/2024 11:45 AM EDT Treatment [address] [phone] Kaela Cole, PT Ataxia (Primary Dx) 09/21/2024 11:00 AM EDT Treatment [address] [phone] Charbel Odonnell, OT Spastic hemiparesis of left nondominant side as late effect of cerebral infarction (CMS/HCC V24, CMS/HCC V28) (Primary Dx); Contracture, left hand 09/13/2024 1:15 PM EDT Treatment [facility] Occupational [address] [phone] Charbel Odonnell, OT Spastic hemiparesis of left nondominant side as late effect of cerebral infarction (CMS/HCC V24, CMS/HCC V28) (Primary Dx); Contracture, left hand 09/08/2024 1:15 PM EDT Treatment [address] [phone] Dmitriy Stein, SHEPHERD/L Spastic hemiparesis of left nondominant side as late effect of cerebral infarction (CMS/HCC V24, CMS/HCC V28) (Primary Dx); Contracture, left hand 09/05/2024 1:45 PM EDT Treatment [facility] Occupational [address] [phone] Charbel Odonnell, OT Spastic hemiparesis of left nondominant side as late effect of cerebral infarction (CMS/HCC V24, CMS/HCC V28) (Primary Dx) 08/30/2024 2:00 PM EDT Treatment [facility] [address] [phone] Kaela Cole, PT Ataxia (Primary Dx) 08/30/2024 1:15 PM EDT Treatment [facility] Occupational [facility] [address] [phone] Charbel Odonnell, OT Spastic hemiparesis of left nondominant side as late effect of cerebral infarction (CMS/HCC V24, CMS/HCC V28) (Primary Dx); Contracture, left hand 08/28/2024 1:00 PM EDT Treatment [facility] [address] [phone] Kaela Cole, REJI Ataxia (Primary Dx) 08/22/2024 1:30 PM EDT Treatment [facility] Occupational [facility] [address] [phone] Charbel Odonnell, OT Spastic hemiparesis of left nondominant side as late effect of cerebral infarction (CMS/HCC V24, CMS/HCC V28) (Primary Dx) 08/22/2024 1:00 PM EDT Treatment [facility] [address] [phone] Kaela Cole, REJI Ataxia (Primary Dx) 08/10/2024 1:00 PM EDT Treatment [facility] [address] [phone] Kaela Cole, PT Ataxia (Primary Dx) 08/02/2024 12:45 PM EDT Treatment [facility] [address] [phone] Kaela Cole, REJI Ataxia (Primary Dx) 07/31/2024 1:15 PM EDT Treatment [facility] [address] [phone] Keith Redmond, SPEED BELT SANDER TENDER Ataxia (Primary Dx) 07/26/2024 1:15 PM EDT Treatment [facility] [address] [phone] Shimon Redmondew, SPEED BELT SANDER TENDER Ataxia (Primary Dx) 07/24/2024 1:15 PM EDT Treatment [address] [phone] Keith Redmond, SPEED BELT SANDER TENDER Ataxia (Primary Dx) 07/13/2024 2:00 PM EDT Treatment [address] [phone] Kaela Cole, PT Ataxia (Primary Dx) from Last 3 Months Immunizations Name Administration Dates Next Due Influenza Quadravalent, MDCK , 0.5ml, preservative free (Flucelvax) 6mo and older 02/04/2021,02/05/2020 PPD Test 04/30/2015 1o1Media SARS-CoV-2 COVID-19, mRNA, LNP-S, preservative free 08/24/2020 Tdap Tetanus diptheria acell ular pertussis (Boostrix; Adacel) 7yo and older 04/30/2015 Surgical History Surgery Date Site/Laterality Comments TUBAL LIGATION PROCEDURE: HISTORICAL TUBAL LIGATION TONSILLECTOMY PROCEDURE: HISTORICAL TONSILLECTOMY OTHER SURGICAL HISTORY 09/13/2012 PROCEDURE: HISTORICAL D&C; COMMENT: and endometrial polypectomy COLONOSCOPY W/ BIOPSIES 02/13/2013 PROCEDURE: ID COLONOSCOPY W/BIOPSY SINGLE/MULTIPLE; COMMENT: 6 mm TC polyp: tubular adenoma. OTHER SURGICAL HISTORY PROCEDURE: ---- OTHER ----; COMMENT: liposuction; fat injected into buttocks COLONOSCOPY 07/25/2020 PROCEDURE: HISTORICAL COLONOSCOPY; COMMENT: 7 mm polyp; inadequate/poor bowel prep; repeat within 12 months. Pathology = tubular adenoma. BREAST BIOPSY 2008 Right PROCEDURE: BX BREAST; PERC NEEDLE CORE [...] 69 05/08/2024 2:04 PM EST Temperature 36.6 C (97.9 F) 05/08/2024 2:04 PM EST Respiratory Rate 16 05/08/2024 2:04 PM EST Oxygen Saturation - - Inhaled Oxygen Concentration - - Weight 66.7 kg (147 lb) 05/08/2024 2:04 PM EST Height 167.6 cm (5' 6 ) 05/08/2024 2:04 PM EST Body Mass Index 23.73 05/08/2024 2:04 PM EST Plan of Treatment Upcoming Encounters Date Type Department Care Team (Late st Contact Info) Description 10/17/2024 2:30 PM EDT Office Visit Adult Medicine [address] [phone] Marc Vazquez MD [address] [place] [phone] Health Maintenance Due Date Last Done Comments Pneumococcal Vaccine: 50+ Years (1 of 2 - PCV) 1982 Pneumococcal Vaccine: Pediatrics (0 to 5 Years) and At-Risk Patients (6 to 64 Years) (1 of 2 - PCV) 1982 Zoster Vaccines (1 of 2) 2013 Medicare Annual Wellness Visit 03/21/2022 Social Influencers of Health Screening 03/21/2022 RSV Immunization Adult Patients (1 - Risk 60-74 years 1-dose series) 2023 Breast Cancer Screening 10/28/2023 10/27/2021 COVID-19 Vaccine [...] Cholesterol Screening (Lipid Panel) 08/31/2028 09/01/2023, 09/01/2023 HIV Screening Completed 04/03/2013 Hepatitis C Screening [...] able to open her hand, less pain Procedures Procedure Name Priority Date/Time Associated Diagnosis [...] Maintenance Results * Depression Screening (11/25/2023) Pathologist [facility] Depression Screening Abstracted [facility] Provider HEALTH MAINTENANCE Final Result * Annual BMP Blood Test (09/01/2023) Pathologist [facility] Annual BMP Blood Test Abstracted [facility] Provider HEALTH MAINTENANCE Final Result * (ABNORMAL) Lipid panel (09/01/2023) [facility] LDL/HDL Ratio 4 0 - 4 Triglycerides 149 0 - 150 mg/dL Cholesterol 137 0 - 200 mg/dL HDL 37(A) >=40 mg/dL LDL Cholesterol 71 0 - 100 mg/dL Blood Venous blood specimen / Unknown Historical Provider LAB BLOOD ORDERABLES Tere l Result * Colonoscopy (02/19/2022) Pathologist [facility] Colonoscopy Abstracted, no interpretation Anatomical Region Laterality Modality Other [facility] Provider HEALTH MAINTENANCE Final Result * SCREENING [...] reviewed with CAD and compared to previous. The breasts are composed of fatty and fibroglandular tissue. No suspicious mass, architectural distortion or suspicious calcifications [...] risk category Moderate (15% - 20%) Result [facility] Ana Paula Alfonso CNM IMG XR PROCEDURES Final Resul t * Cervical Cancer Screening: HPV (09/25/2021) Pathologist [facility] Cervical Cancer Screening: HPV Abstracted, Negative Result [facility] Historical Provider HEALTH MAINTENANCE Final Result * HIV Screening (04/03/2013) [facility] HIV Screening Abstracted Result [facility] Provider HEALTH MAINTENANCE Final Result * Hepatitis C Screening (04/03/2013) [facility] Hepatitis C Screening Abstracted [facility] Provider HEALTH MAINTENANCE Final Result from Last 3 Months or Most Recently Relevant to Health Maintenance Insurance MEDICAID - [place] [employer] [place] [phone] Advance Directives Documents on File Type Date Recorded Patient Watch Train Assembler Expl anation Health Care Decision (hx) 06/08/2019 [...] (hx) 06/08/2019 AD BHATTI DIRECTIVE Care Teams Appliance Mechanic Relationship Specialty Start Date End Date Marc Vazquez MD [address] [place] [address] PCP - General Internal Medicine 10/16/21
== END 2024-10-12 12:41 | disposition home or self-care (01) ==
LOC: HO.HOS 11:50
PROVIDERS: PCP Internal Medicine; Visit Provider Physical Medicine & Rehabilitation
DX: G81.14 Spastic hemiplegia affecting left nondominant side (principal); I69.30 Unspecified sequelae of cerebral infarction; G24.3 Spasmodic torticollis; M79.18 Myalgia, other site
CPT/HCPCS: 20552; 99214

== ENCOUNTER → 2024-10-12 11:49 | Outpatient (BNVA) | payer MEDICARE, MEDICAID, SELFPAY | PROVIDERS: PCP Internal Medicine; Visit Provider Physical Medicine & Rehabilitation | DX: M79.18 Myalgia, other site (principal); I69.354 Hemiplegia and hemiparesis following cerebral infarction affecting left non-dominant side; G24.3 Spasmodic torticollis | CPT/HCPCS: 20552; 99212; J2003 ==

== ENCOUNTER → 2024-11-15 12:09 | Outpatient (BNV) | payer MEDICARE, MEDICAID, SELFPAY | PROVIDERS: PCP Internal Medicine; Visit Provider Physical Medicine & Rehabilitation | DX: G81.14 Spastic hemiplegia affecting left nondominant side (principal); G24.3 Spasmodic torticollis; I69.30 Unspecified sequelae of cerebral infarction | CPT/HCPCS: 64616; 64644; 95874 ==

== ENCOUNTER 2024-11-15 13:11 | Outpatient (REF) | payer MEDICARE, MEDICAID, SELFPAY ==
--- NOTE | 2024-11-15 12:09 | EMG_ITS ---
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 Last Botox injection with Dr. Tate was 02/28/2024, total 200 units to muscles in upper extremity. History of stroke 5 years, with spasticity on LUE. Patient transferred to me as I have known her since her stroke, back when I worked in [employer]. Previous injections by me: 08/16/2024:? Patient said that since injection, she has not had any shaking or tightness or woodenboard feeling. Her therapist has been pleased that they have been able to extend fingers and elbows, even wrist, much better. Denied side effects or complications. Exam on 10/12/2024: Able to at least passively extend elbow to 180 degrees, Chelsea 1. Able to extend digits 2 -5, passively, fully.? Chelsea 1. Still flexed wrist, -30 degrees from full extension. Forearm can fully pronate. Less/no tightness on left upper trapezius. Very good improvement since the last injection.? We will just do a few adjustments to really improve the wrist flexion.? PROCEDURE: The procedure was explained to the patient/caregiver, and informed consent was obtained. The patient sat on bed. Left upper extremity and upper trapezius were cleansed with betadine in the usual sterile manner. A 30 gauge needle electrode was used.? TOXIN USED: Botox? Muscle Units per site Number of sites Units per muscle Left FCR 50 1 50 Left FDS 50 1 50 Left FDP 50 1 50 Left brachioradialis 50 1 50 Left brachialis 50 2 100 Left PT 50 1 50 Left trapezius 25 2 50 ? EMG-guidance was used during the injection. A total of 400 units injected.? 0 units wastage. Vial size: 100 units per vial Dilution: 100 units per 1 ml of preservative free saline The patient tolerated the procedure well without complications. The patient was observed for 30 minutes, before being discharged with post procedure instructions. CODING: CPT code: 53894 1 ext, 5 or more muscles 74050 neck, exclud larynx modifier 50 bilateral Wastage: None Guidance code: 20724 EMG guidance for chemodenervation J code: Botox J0585 [facility] code: [id number] Lot #: [id number], [id number] x 3 vials Expiration date: , [facility]
--- OUTSIDE RECORDS SUMMARY | 2024-11-15 13:47 | XMS_ITS | Clinical Summary ---
[facility] Address [address] [place] [address] Care Team Providers Care Environmental Services Lead Name Role Phone Unavailable Primary Care Provider [...] (1 of 2) 2013 Influenza Vaccine (#1) 2024 02/05/2020 DTap / Tdap / Td (2 [...]
--- OUTSIDE RECORDS SUMMARY | 2024-11-15 13:47 | XMS_ITS | Clinical Summary ---
Author Organization [facility] Address [address] [place] [address] Phone Care Team Providers Care Child Study Team Director Name Role Phone Marc Vazquez MD Primary [...] min/lycopene/l ut (MULTIVITAL ORAL) Take by mouth. Active OneTouch Ultra Test test strip To check blood sugar once a day 01/31/20 24 025 Active blood-glucose meter kit To check blood sugar once a day 01/31/20 24 Active amLODIPine (NORVASC) 5 mg tablet TAKE ONE TABLET BY MOUTH EVERY DAY 90 tablet 1 03/13/20 24 Active triamcinolone (KENALOG) 0.1 % cream Apply 1 Applicator topically 2 times daily. 30 g 05/08/19 25 Active PARoxetine (PAXIL) 30 mg tablet [...] WITH BREAKFAST 30 tablet 09/09/19 25 Active atorvastatin (LIPITOR) 40 mg tablet TAKE ONE TABLET BY MOUTH EVERY DAY 12 tablet 10/27/19 25 Active gabapentin (NEURONTIN) 300 mg capsule TAKE ONE CAPSULE BY MOUTH EVERY MORNING, TAKE ONE CAPSULE EVERY AFTERNOON AFTER LUNCH, AND TAKE TWO CAPSULES DAILY AT BEDTIME 36 capsule 10/27/19 25 Active baclofen (LIORESAL) 10 mg tablet TAKE ONE TABLET BY MOUTH THREE TIMES A DAY NEEDED FOR MUSCLE SPASM 90 tablet 10/31/19 25 Active carvediloL (COREG) 12.5 mg tablet TAKE ONE TABLET BY MOUTH TWICE A DAY WITH MEALS 180 tablet 11/01/19 25 Active losartan (COZAAR) 50 mg tablet Take 1 tablet (50 mg total) by mouth 1 (one) time each day. 15 tablet 11/10/19 25 Active losartan (COZAAR) 50 mg tablet TAKE ONE TABLET BY MOUTH EVERY DAY 90 tablet 1 04/10/20 24 025 Discontinued carvediloL (COREG) 12.5 mg tablet Take 1 tablet (12.5 mg total) by mouth 2 (two) times a day with meals. 180 tablet 1 05/03/19 25 025 Discontinued baclofen (LIORESAL) 10 mg tablet TAKE ONE TABLET BY MOUTH THREE TIMES A DAY NEEDED FOR MUSCLE SPASM 90 tablet 4 02/18/ 025 Discontinued atorvastatin (LIPITOR) 40 mg tablet Take 1 tablet (40 mg total) by mouth 1 (one) time each day. 90 tablet 1 05/30/19 25 025 Discontinued gabapentin (NEURONTIN) 300 mg capsule TAKE ONE CAPSULE BY MOUTH EVERY MORNING, TAKE ONE CAPSULE EVERY AFTERNOON AFTER LUNCH, AND TAKE TWO CAPSULES DAILY AT BEDTIME 60 capsule 09/20/19 25 025 Discontinued losartan (COZAAR) 50 mg tablet TAKE ONE TABLET BY MOUTH EVERY DAY 12 tablet 10/27/19 25 025 Discontinued(Re order) Active Problems Problem Noted Date Diagnosed Date Type 2 diabetes mellitus wit hout complication, without long-term current use of insulin ([facility] V24, [facility] V28) 10/16/2024 Cervical radiculopathy 10/16/2024 Lumbar radiculopathy, chronic 10/16/2024 Ataxia 10/16/2024 Contracture, left hand 11/25/2023 Occipital headache 07/23/2023 Prediabetes 07/23/2023 Lumbar degenerative disc disease 11/17/2021 Overview (02/15/2024): 10/29/2021, [facility] pain [facility], referral placed to acupuncture, scheduled for left therapeutic SIJ injection Hematuria 08/14/2021 Overview (02/15/2024): [facility] Coronary artery disease stat us post coronary stent insertion 07/09/2021 Mixed hyperlipidemia 07/09/2021 Peripheral vascular disease ([facility] V24) 2021 Overview (02/15/2024): [facility] Primary hypertension 07/09/2021 Chronic back pain 04/04/2021 Alkaline phosphatase elevation 02/15/2021 Pelvic pain 10/31/2020 Overview (02/15/2024): Last Assessment & Plan: I explaiend to Jesi that the cause of her pain is unclear, but given the frequency and description, it sounds most likely GI related. In any case, I recommended we perform a pelvic US to rule out Ge[employer] Associate etiology and if normal, she should return to GI, particularly with her history of polyp requiring follow up in one year. She voiced understanding and agreed. We also sent infectious evaluation today, but given she is low risk, it is likely to be negative. We will discuss results when available. Insomnia 10/18/2020 Fatty liver 10/17/2020 Aortic insufficiency 08/19/2020 Colon polyp 07/25/2020 CVA, old, hemiparesis (CMS/HCC V24, [facility] V28) 12/14/2019 Overview (02/15/2024): Botox injections were helpful; [facility] Hemiparesis following cerebr ovascular accident (CVA) ([facility] V24, [facility] V28) 06/09/2019 Overview (02/15/2024): 06/01 Ischemic cardiomyopathy 03/08/2019 Overview (02/15/2024): 01/28 EF 30-35%; resolved on echo 12/30 History of NC (myocardial infarction) 02/13/2019 Overview (02/15/2024): 01/28; VEL x2, Balloon Angioplasty to D2 lesion Vertigo 02/28/2015 Abdominal pain 04/03/2013 Overview (02/15/2024): RLQ; felt to be MSK, had injection from pain [facility] 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 Overview (02/15/2024): Bx [...] 12/23/2011 Overview (02/15/2024): Left; seen at pain mgmt for this Encounters Date Type Department Care Team Description 10/05/2024 Telephone Adult [address] [phone] Marc Vazquez MD Breathing Problem 09/27/2024 1:30 PM EDT Treatment [facility] Occupational Therapy [address] [phone] Charbel Odonnell, OT Spastic hemiparesis of left nondominant side as late effect of cerebral infarction (CMS/HCC V24, CMS/HCC V28) (Primary Dx); Contracture, left hand 09/27/2024 12:45 PM EDT Treatment [facility] [address] [phone] Kaela Cole, PT Ataxia (Primary Dx) 09/25/2024 2:30 PM EDT Treatment [facility] [address] [phone] Keith Redmond, TECHNICAL ARCHITECT Ataxia (Primary Dx) 09/25/2024 1:45 PM EDT Treatment [facility] Occupational Therapy [address] [phone] Charbel Odonnell, OT Spastic hemiparesis of left nondominant side as late effect of cerebral infarction (CMS/HCC V24, CMS/HCC V28) (Primary Dx); Contracture, left hand 09/21/2024 11:45 AM EDT Treatment [facility] [address] [phone] Kaela Cole, PT Ataxia (Primary Dx) 09/21/2024 11:00 AM EDT Treatment [facility] Occupational Therapy [address] [phone] Charbel Odonnell, OT Spastic hemiparesis of left nondominant side as late effect of cerebral infarction (CMS/HCC V24, CMS/HCC V28) (Primary Dx); Contracture, left hand 09/13/2024 1:15 PM EDT Treatment [facility] Occupational Therapy [address] [phone] Charbel Odonnell, OT Spastic hemiparesis of left nondominant side as late effect of cerebral infarction (CMS/HCC V24, CMS/HCC V28) (Primary Dx); Contracture, left hand 09/08/2024 1:15 PM EDT Treatment [facility] Occupational [facility] [address] [phone] Dmitriy Stein, SHEPHERD/L Spastic hemiparesis of left nondominant side as late effect of cerebral infarction (CMS/HCC V24, CMS/HCC V28) (Primary Dx); Contracture, left hand 09/05/2024 1:45 PM EDT Treatment [facility] Occupational [facility] [address] [phone] Charbel Odonnell, OT Spastic hemiparesis of left nondominant side as late effect of cerebral infarction (CMS/HCC V24, CMS/HCC V28) (Primary Dx) 08/30/2024 2:00 PM EDT Treatment [facility] [address] [phone] Kaela Cole, PT Ataxia (Primary Dx) 08/30/2024 1:15 PM EDT Treatment [facility] Occupational [facility] [address] [phone] Charbel Odonnell, OT Spastic hemiparesis of left nondominant side as late effect of cerebral infarction (CMS/HCC V24, CMS/HCC V28) (Primary Dx); Contracture, left hand 08/28/2024 1:00 PM EDT Treatment [facility] [address] [phone] Kaela Cole, PT Ataxia (Primary Dx) 08/22/2024 1:30 PM EDT Treatment [facility] Occupational [facility] [address] [phone] Charbel Odonnell, OT Spastic hemiparesis of left nondominant side as late effect of cerebral infarction (CMS/HCC V24, CMS/HCC V28) (Primary Dx) 08/22/2024 1:00 PM EDT Treatment [address] [phone] Kaela Cole, PT Ataxia (Primary Dx) from Last 3 Months Immunizations Name Administration Dates Next Due Influenza Quadravalent, MDCK , 0.5ml, preservative free (Flucelvax) 6mo and older 02/04/2021,02/05/2020 PPD Test 04/30/2015 Razmir SARS-CoV-2 COVID-19, mRNA, LNP-S, preservative free 08/24/2020 Tdap Tetanus diptheria acell ular pertussis (Boostrix; Adacel) 7yo and older 04/30/2015 Surgical History Surgery Date Site/Laterality Comments TUBAL LIGATION PROCEDURE: HISTORICAL TUBAL LIGATION TONSILLECTOMY PROCEDURE: HISTORICAL TONSILLECTOMY OTHER SURGICAL HISTORY 09/13/2012 PROCEDURE: HISTORICAL D&C; COMMENT: and endometrial polypectomy COLONOSCOPY W/ BIOPSIES 02/13/2013 PROCEDURE: ME COLONOSCOPY W/BIOPSY SINGLE/MULTIPLE; COMMENT: 6 mm TC [...] Care Team (Late st Contact Info) Description 11/22/2024 12:30 PM EDT Office Visit Adult Medicine [address] [phone] Marc Vazquez MD [address] [place] [phone] Health Maintenance Due Date Last Done Comments Diabetes: Annual Foot Exam 1973 Diabetes: Annual Retina Eye Exam 1973 Pneumococcal Vaccine: 50+ Years (1 of 2 - PCV) 1982 Zoster Vaccines (1 of 2) 2013 Medicare Annual Wellness Visit 03/21/2022 Social Influencers of Health Screening 03/21/2022 RSV Immunization Adult Patients (1 - Risk 60-74 years 1-dose series) 2023 Breast Cancer Screening 10/28/2023 10/27/2021 COVID-19 Vaccine ( - 2023-2 5 season) 2023 03/12/2021, 08/24/2020, 07/25/2020 Depression Screening 04/12/2024 11/25/2023 Diabetes: Annual GFR (Glomerular Filtration Rate) 08/31/2024 09/01/2023, 09/01/2023 Hypertension/CHF/CAD Annual BMP Blood Test 08/31/2024 09/01/2023, 09/01/2023 Diabetes: Annual Urine Albumin-Creatinine Ratio (uACR) 10/17/2024 Diabetes: Blood Sugar Contro l Test (HGBA1C) 10/17/2024 01/31/2024, 01/31/2024, 09/01/2023 Influenza Vaccine (#1) 2024 , 02/05/2020 DTaP,Tdap,and Td Vaccines (2 - Td [...] Procedure Name Priority Date/Time Associated Diagnosis Comments HEMOGLOBIN A1C Routine 01/31/2024 DEPRESSION SCREENING Routine 11/25/2023 ANNUAL BMP BLOOD TEST Routine 09/01/2023 LIPID PANEL Routine 09/01/2023 COLONOSCOPY Routine 02/19/2022 SCREENING MAMMOGRAPHY BI 2-VIEW BREAST INC CAD Routine 10/27/2021 4:43 PM EDT Encounter for screening mammogram for malignant neoplasm of breast HPV Routine 09/25/2021 HEPATITIS C SCREENING Routine 04/03/2013 HIV SCREENING Routine 04/03/2013 from Last 3 Months or Most Recently Relevant to Health Maintenance Results * Hemoglobin A1c (01/31/2024) Pathologist [facility] Hemoglobin A1C 6.3 <=6.5 % Blood Venous blood specimen / Unknown [facility] Provider LAB BLOOD ORDERABLES Tere l Result * Depression Screening (11/25/2023) Pathologist [facility] Depression Screening Abstracted [facility] Provider HEALTH MAINTENANCE Final Result * Annual BMP Blood Test (09/01/2023) Pathologist [facility] Annual BMP Blood Test Abstracted [facility] Provider HEALTH MAINTENANCE Final Result * (ABNORMAL) Lipid panel (09/01/2023) [facility] LDL/HDL Ratio 4 0 - 4 Triglycerides 149 0 - 150 mg/dL Cholesterol 137 0 - 200 mg/dL HDL 37(A) >=40 mg/dL LDL Cholesterol 71 0 - 100 mg/dL Blood Venous blood specimen / Unknown [facility] Provider LAB BLOOD ORDERABLES Tere l Result [...] risk category Moderate (15% - 20%) Result [facility] [place] JOHNM IMG XR PROCEDURES Final Resul t * Cervical Cancer Screening: HPV (09/25/2021) Cervical Cancer Screening: HPV Abstracted, Negative Result [facility] Historical Provider HEALTH MAINTENANCE Final Result * HIV Screening (04/03/2013) HIV Screening Abstracted us Historical Provider HEALTH MAINTENANCE Final Result * Hepatitis C Screening (04/03/2013) Hepatitis C Screening Abstracted us Historical Provider HEALTH MAINTENANCE Final Result from Last 3 Months or Most Recently Relevant to Health Maintenance Insurance [place]ICAID - [place] [employer] MEDICARE Advance Directives Documents on File Type Date Recorded Patient Fitter Helper Expl anation Health Care Decision (hx) 06/08/2019 [...] (hx) 06/08/2019 AD BHATTI DIRECTIVE Care Teams Child Study Team Director Relationship Specialty Start Date End Date Marc Vazquez MD [address] [place] [address] PCP - General Internal Medicine 10/16/21
== END 2024-11-15 13:12 | disposition home or self-care (01) ==
LOC: HO.NEURO 13:11
PROVIDERS: PCP Internal Medicine; Visit Provider Physical Medicine & Rehabilitation
DX: G81.14 Spastic hemiplegia affecting left nondominant side (principal); G24.9 Dystonia, unspecified; I69.30 Unspecified sequelae of cerebral infarction
CPT/HCPCS: 64616; 64644; 95874; J0585

== ENCOUNTER 2024-12-29 10:20 | Outpatient (REF) | payer MEDICARE, MEDICAID, SELFPAY ==
--- NOTE | ~2024-12-29 | XR_ITS ---
EXAMINATION: XR SHOULDER, LEFT CLINICAL INFORMATION: M25.512 - Pain in left shoulder COMPARISON: None available. TECHNIQUE: Two views of the left shoulder. FINDINGS: There is elevation of distal clavicle. There is no degenerative changes in the AC joint. Small marginal osteophytes are present in the glenohumeral joint. There is no dislocation. No fracture is evident. XR/XR shoulder LT min 2V IMPRESSION: Suspected type II or type III AC joint separation. Mild degenerative changes of the left glenohumeral joint. Electronically signed by: Ry Aguilar MD 12/29/2024 11:04 AM EDT
--- NOTE | ~2024-12-29 | XR_ITS ---
EXAMINATION: XR SHOULDER, RIGHT CLINICAL INFORMATION: M25.511 - Pain in right shoulder COMPARISON: None available. TECHNIQUE: Two views of the right shoulder. FINDINGS: The AC joint is intact and not degenerated. Glenohumeral joint is intact and unremarkable. XR/XR shoulder RT min 2V IMPRESSION: Unremarkable right shoulder. Electronically signed by: Ry Aguilar MD 12/29/2024 11:04 AM EDT
== END 2024-12-29 10:21 | disposition home or self-care (01) ==
LOC: HO.HOSX 10:20
PROVIDERS: PCP Internal Medicine; Visit Provider Physical Medicine & Rehabilitation
DX: M25.511 Pain in right shoulder (principal); M25.512 Pain in left shoulder; G89.29 Other chronic pain; G81.14 Spastic hemiplegia affecting left nondominant side; I69.30 Unspecified sequelae of cerebral infarction; G24.3 Spasmodic torticollis
CPT/HCPCS: 73030; 99212

== ENCOUNTER 2024-12-29 10:20 | Outpatient (AMB) | payer MEDICARE, MEDICAID, SELFPAY ==
--- NOTE | 2024-12-29 10:31 | A.OFFVIS_ITS ---
Intake Visit Reasons: OV-Botox injection f/u and TPI Intake Note: Jesi is a 59 year old female who presents today for her follow up visit status post Botox injection, 11/15/24 and trigger point injections. At today's visit she states that the right sided trigger point injection went well. Patient states that the Botox injection in her left arm helped relieve the pain but now her left arm pain is very intense today. Patient added that she would like another referral to Physical therapy. Allergies lisinopril Allergy (Intermediate, Verified 12/29/24 10:39) hives ciprofloxacin (From Cipro) Allergy (Verified 12/29/24 10:39) unknown shellfish derived Allergy (Verified 12/29/24 10:39) unknown Medication List - Last Reconciled 12/29/24 by Ivon Gallegos MD acetaminophen ER 650 mg PO Q8H PRN amlodipine 5 mg PO DAILY aspirin 81 mg PO DAILY atorvastatin 80 mg PO DAILY baclofen 10 mg PO TID carvedilol 12.5 mg PO BID cholecalciferol (vitamin D3) 25 mcg PO DAILY gabapentin 600 mg PO BID hydroxyzine HCl 10 mg PO BEDTIME hydroxyzine HCl 50 mg PO BEDTIME lorazepam mg PO losartan 50 mg PO DAILY losartan 50 mg PO DAILY omeprazole 40 mg PO DAILY onabotulinumtoxinA (Botox) to be injected to the muscles of UE for spasticity q 3 mths; paroxetine HCl 60 mg PO DAILY HPI Comments Details: Last Botox injection with Dr. Tate was 02/28/2024, total 200 units to left splenius and muscles in upper extremity. History of stroke 5 years, with spasticity on LUE. ICD10: G81.14 affecting left nondominant side I69.30 Injection by sd: 08/16/2024, 11/15/24 Patient is happy with her improvement. She actually can move her fingers a little bit better. However bilateral shoulder pain is wearing her down. [facility] Medical History (Updated 12/29/24 @ 14:17 by Ivon Gallegos MD) Late effects of cerebral ischemic stroke Spastic hemiparesis of left nondominant side Spasmodic torticollis Spasticity due to old stroke HTN (hypertension) Cerebrovascular disease Chronic pain syndrome Sequela, post-stroke Surgical History Stented coronary artery Family History Mother Diabetes HTN (hypertension) Heart disease Social History (Updated 03/31/24 @ 11:18 by SANDEE Anglin) Alcohol intake: never Patient Tobacco Use Status: Never used Tobacco Substance Use Type: Marijuana Current occupational status: disabled 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 Chelsea 1. However left wrist continues to be flexed ulnarly, Chelsea 2-3. Bilateral Sparks sign positive. Assessment & Plan Assessment & Plan (1) Shoulder pain, bilateral: Code(s): M25.511 - Pain in right shoulder; M25.512 - Pain in left shoulder Category: Medical Qualifiers: Chronicity: chronic Qualified Code(s): M25.511 - Pain in right shoulder; M25.512 - Pain in left shoulder; G89.29 - Other chronic pain (2) Spastic hemiparesis of left nondominant side: Code(s): G81.14 - Spastic hemiplegia affecting left nondominant side Category: Medical (3) Late effects of cerebral ischemic stroke: Code(s): I69.30 - Unspecified sequelae of cerebral infarction Category: Medical (4) Spasmodic torticollis: Code(s): G24.3 - Spasmodic torticollis Category: Medical Plan 1. Very good improvement with Botox injection. Especially for elbow flexors and finger flexors. We may need to had a little bit more for the wrist flexors. Muscles to be injected: Add left FCU 50 units. Total of 450 units. Next injection would be 3 months after the last, around 1st week of February. 2. Continues to have bilateral shoulder pain. Send it for x-rays to rule out subluxation or degenerative changes. Most likely we will offer steroid injection to shoulder. Assessment and plan discussed with patient, and patient was agreeable. All questions were answered thoroughly. Ivon Gallegos MD, ASHKAN Board Certified, [place] [employer] and Rehabilitation (ABPMR) Board Certified, [place] [employer] Electrodiagnostic Medicine (ABEM) Orders: Orders 2 XR shoulder LT min 2V Today M25.512 - Pain in left shoulder XR shoulder RT min 2V Today M25.511 - Pain in right shoulder, M25.512 - Pain in left shoulder Coding Level of Care Code Est Pt Level 4 (79982) Diagnoses Chronic pain of both shoulders M25.511; M25.512; G89.29 Chronicity: chronic Spastic hemiparesis of left nondominant side G81.14 Late effects of cerebral ischemic stroke I69.30 Spasmodic torticollis G24.3
--- OUTSIDE RECORDS SUMMARY | 2024-12-29 10:54 | XMS_ITS | Clinical Summary ---
Author Organization [facility] Address [address] [place] [address] Care Team Providers Care Contracts Advisor Name Role Phone Unavailable Primary Care Provider [...]
--- OUTSIDE RECORDS SUMMARY | 2024-12-29 10:54 | XMS_ITS | Clinical Summary ---
Author Organization [facility] Address [address] [place] [address] Phone Care Team Providers Care Messenger Office Name Role Phone Marc Vazquez MD Primary [...] blood sugar once a day 4 Active triamcinolone (KENALOG) 0.1 % cream Apply 1 Applicator topically 2 times daily. 30 g 5 Active atorvastatin (LIPITOR) 40 mg tablet TAKE ONE TABLET BY MOUTH EVERY DAY 12 tablet 5 Active carvediloL (COREG) 12.5 mg tablet TAKE ONE TABLET BY MOUTH TWICE A DAY WITH MEALS 180 tablet 5 Active gabapentin (NEURONTIN) 300 mg capsule TAKE ONE CAPSULE BY MOUTH EVERY MORNING, TAKE ONE CAPSULE EVERY AFTERNOON AFTER LUNCH, AND TAKE TWO CAPSULES DAILY AT BEDTIME 360 capsule 1 5 Active losartan (COZAAR) 50 mg tablet Take 1 tablet (50 mg total) by mouth 1 (one) time each day. 90 tablet 1 5 Active amLODIPine (NORVASC) 5 mg tablet Take 1 tablet (5 mg total) by mouth 1 (one) time each day. 90 tablet 1 5 Active omeprazole (PriLOSEC) [address] capsule Take 1 capsule (40 mg total) by mouth 1 (one) time each day. Do not crush or chew. 90 each 1 5 Active naproxen sodium (Aleve) 220 mg tablet Take 1 tablet (220 mg total) by mouth 1 (one) time each day if needed (Moderate pain). 30 each 2 5 Active PARoxetine (PAXIL) 30 mg tablet Take 2 tablets (60 mg total) by mouth 1 (one) time each day in the morning. 180 tablet 1 5 Active baclofen (LIORESAL) 10 mg tablet Take 1 tablet (10 mg total) by mouth 2 (two) times a day if needed for muscle spasms. 180 tablet 1 5 Active hydrOXYzine HCL (ATARAX) 50 mg tablet TAKE ONE TABLET BY MOUTH DAILY AT BEDTIME 90 tablet 1 5 Active metFORMIN XR (GLUCOPHAGE-XR) 500 mg 24 hr tablet Take 1 tablet (500 mg total) by mouth 1 (one) time each day with breakfast. 90 tablet 1 5 Active Active Problems Problem Noted Date Diagnosed Date Type 2 diabetes mellitus wit hout complication, without long-term current use of insulin ([facility] V24, [facility] V28) 10/16/2024 Cervical radiculopathy 10/16/2024 Lumbar radiculopathy, chronic 10/16/2024 Ataxia 10/16/2024 Contracture, left hand 11/25/2023 Occipital headache 07/23/2023 Prediabetes 07/23/2023 Lumbar degenerative disc disease 11/17/2021 Overview (02/15/2024): 10/29/2021, [facility], referral placed to acupuncture, scheduled for left therapeutic SIJ injection Hematuria 08/14/2021 Overview (02/15/2024): [facility] Coronary artery disease stat us post coronary stent insertion 07/09/2021 Mixed hyperlipidemia 07/09/2021 Peripheral vascular disease ([facility] V24) 2021 Overview (02/15/2024): [facility] Primary hypertension 07/09/2021 Chronic back pain 04/04/2021 Alkaline phosphatase elevation 02/15/2021 Pelvic pain 10/31/2020 Overview (02/15/2024): Last Assessment & Plan: I explaiend to Jesi that the cause of her pain is unclear, but given the frequency and description, it sounds most likely GI related. In any case, I recommended we perform a pelvic US to rule out [employer] etiology and if normal, she should return [...] 08/19/2020 Colon polyp 07/25/2020 CVA, old, hemiparesis ([facility] V24, [facility] V28) 12/14/2019 Overview (02/15/2024): Botox injections were helpful; [facility] Hemiparesis following cerebr ovascular accident (CVA) ([facility] V24, [facility] V28) 06/09/2019 Overview (02/15/2024): 06/01 Ischemic cardiomyopathy 03/08/2019 Overview (02/15/2024): 01/28 EF 30-35%; resolved on echo 12/30 History of [place] (myocardial infarction) 02/13/2019 Overview (02/15/2024): 01/28; VEL x2, Balloon Angioplasty to D2 lesion Vertigo 02/28/2015 Abdominal pain 04/03/2013 Overview (02/15/2024): RLQ; felt to be MSK, had injection from pain mgmt at [facility] 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 [...] 12/23/2011 Overview (02/15/2024): Left; seen at [facility] for this Encounters Date Type Department Care Team Description 11/22/2024 12:30 PM EDT Office Visit Adult Medicine [address] [phone] Marc Vazquez MD Primary hypertension (Primary Dx); Coronary artery disease status post coronary stent insertion; Type 2 diabetes mellitus without complication, without long-term current use of insulin ([facility] V24, [facility] V28); CVA, old, hemiparesis ([facility] V24, [facility] V28); Contracture, left hand; Lumbar radiculopathy, chronic; Cervical radiculopathy; Anxiety and depression; Urinary incontinence, unspecified type; Eye exam, routine 11/22/2024 Telephone Adult Medicine [address] [phone] Marc Vazquez MD 10/05/2024 Telephone Adult Medicine [address] [phone] Marc Vazquez MD from Last 3 Months Immunizations Name Administration Dates Next Due Influenza Quadravalent, MDCK , 0.5ml, preservative free (Flucelvax) 6mo and older 02/04/2021,02/05/2020 PPD Test 04/30/2015 [employer] SARS-CoV-2 COVID-19, mRNA, LNP-S, preservative free 08/24/2020 Tdap Tetanus diptheria acell ular pertussis (Boostrix; Adacel) 7yo and older 04/30/2015 Surgical History Surgery Date Site/Laterality Comments TUBAL LIGATION PROCEDURE: HISTORICAL TUBAL LIGATION TONSILLECTOMY PROCEDURE: HISTORICAL TONSILLECTOMY OTHER SURGICAL HISTORY 09/13/2012 PROCEDURE: HISTORICAL D&C; COMMENT: and endometrial polypectomy COLONOSCOPY W/ BIOPSIES 02/13/2013 PROCEDURE: SD COLONOSCOPY W/BIOPSY SINGLE/MULTIPLE; COMMENT: 6 mm TC [...] Sign Reading Time Taken Comments Blood Pressure 110/62 11/22/2024 12:29 PM EDT Pulse 74 11/22/2024 12:29 PM EDT Temperature 35.8 C (96.5 F) 11/22/2024 12:29 PM EDT Respiratory Rate 16 11/22/2024 12:29 PM EDT Oxygen Saturation - - Inhaled Oxygen Concentration - - Weight 68.9 kg (152 lb) 11/22/2024 12:29 PM EDT Height 167.6 cm (5' 6 ) 11/22/2024 12:29 PM EDT Body Mass Index 24.53 11/22/2024 12:29 PM EDT Plan of Treatment Upcoming Encounters Date Type Department Care Team (Late st Contact Info) Description 04/24/2025 2:00 PM EST Office Visit Adult Medicine [address] [phone] Marc Vazquez MD [address] [place] [address] Health Maintenance Due Date Last Done Comments Diabetes: Annual Foot Exam 1973 Diabetes: Annual Retina Eye Exam 1973 Pneumococcal Vaccine: 50+ Years (1 of 2 - PCV) 1982 Zoster Vaccines (1 of 2) 2013 Medicare Annual Wellness Visit 03/21/2022 Social Influencers of Health Screening 03/21/2022 RSV Immunization Adult Patients (1 - Risk 60-74 years 1-dose series) 2023 Breast Cancer Screening 10/28/2023 10/27/2021 Depression Screening 04/12/2024 11/25/2023 Diabetes: Annual GFR (Glomerular Filtration Rate) 08/31/2024 09/01/2023, 09/01/2023 Hypertension/CHF/CAD Annual BMP Blood Test 08/31/2024 09/01/2023, 09/01/2023 Diabetes: Annual Urine Albumin-Creatinine Ratio (uACR) 10/17/2024 Diabetes: Blood Sugar Contro l Test (HGBA1C) 10/17/2024 01/31/2024, 01/31/2024, 09/01/2023 COVID-19 Vaccine ( - 2024-2 6 season) 2024 03/12/2021, 08/24/2020, 07/25/2020 Influenza Vaccine (#1) 2024 , 02/05/2020 DTaP,Tdap,and [...] Maintenance Results * Hemoglobin A1c (01/31/2024) Pathologist [facility] Hemoglobin A1C 6.3 <=6.5 % Blood Venous blood specimen / Unknown Historical Provider LAB BLOOD ORDERABLES Tere l Result * Depression Screening (11/25/2023) Pathologist [facility] Depression Screening Abstracted us Historical Provider HEALTH MAINTENANCE Final Result * Annual BMP Blood Test (09/01/2023) Pathologist [facility] Annual BMP Blood Test Abstracted Historical Provider HEALTH MAINTENANCE Final Result * (ABNORMAL) Lipid panel (09/01/2023) Pathologist [facility] LDL/HDL Ratio 4 0 - 4 [...] cancer risk category Moderate (15% - 20%) Ana Paula Alfonso CNM IMG XR PROCEDURES Final Resul t * Cervical Cancer Screening: HPV (09/25/2021) Cervical Cancer Screening: HPV Abstracted, Negative Result [facility] Historical Provider HEALTH MAINTENANCE Final Result * HIV Screening (04/03/2013) HIV Screening Abstracted Historical Provider HEALTH MAINTENANCE Final Result * Hepatitis C Screening (04/03/2013) Hepatitis C Screening Abstracted Historical Provider HEALTH MAINTENANCE Final Result from Last 3 Months or Most Recently Relevant to Health Maintenance Insurance [place]ICA[place] - [place] [employer] MEDICARE Advance Directives Documents on File Type Date 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
== END 2024-12-29 11:09 | disposition home or self-care (01) ==
LOC: HO.HOS 10:21
PROVIDERS: PCP Internal Medicine; Visit Provider Physical Medicine & Rehabilitation
DX: M25.511 Pain in right shoulder (principal); M25.512 Pain in left shoulder; G89.29 Other chronic pain; G81.14 Spastic hemiplegia affecting left nondominant side; I69.30 Unspecified sequelae of cerebral infarction; G24.3 Spasmodic torticollis
CPT/HCPCS: 99213

== ENCOUNTER → 2024-12-29 10:53 | Outpatient (BNV) | payer MEDICARE, MEDICAID, SELFPAY | PROVIDERS: PCP Internal Medicine; Visit Provider Radiology Diagnostic Radiology | DX: M25.511 Pain in right shoulder (principal); M25.712 Osteophyte, left shoulder | CPT/HCPCS: 73030 ==